=== PATIENT | female | born 1975 | race African-American/Black ===

== ENCOUNTER 2017-03-26 09:59 | Inpatient (IN) ==
[2017-03-26] MEDS ORDERED: SODIUM CHLORIDE 0.9% 1,000 ML IV STA ×2 (10:26→12:09)
[2017-03-26] MEDS ORDERED: ONDANSETRON 4 MG/2 ML VIAL IV STA (10:26)
--- NOTE | 2017-03-26 10:40 | Emergency Department Note ---
Luis London Brooke, am scribing for, and in the presence of, Junior Ross MD 10 :30. Vandana London Charles R, MD, personally performed the services described in this documentation, ascribed by Quiana Smith in my presence, and it is both accurate and complete . Arrival - Arrival Chief Complaint: Nausea/Vomiting/Diarrhea Stated Complaint: VOMITTING FOR 2 DAYS ED Nursing Triage Note: Pt c/o nausea, vomiting, and diarrhea x 2 days. Blood sugar in triage 363. Mode of Arrival: Ambulatory Limitations: No Limitations Source: Patient, RN Notes Reviewed Time Seen by Provider: 03/26/17 10:21 - History of Present Illness HPI Narrative: Patient is a 41 year old female who presents to the ED with c/o nausea, vomiting , and diarrhea. Patient says the symptoms started two days ago. She ate some food, two days ago, and "guesses it spoiled on my stomach." Patient says she was unable to keep anything down, until this morning. She had some water, earlier, and says she has not vomited it back up yet. The diarrhea stopped last night, also. Patient denies having any abdominal pain and says there is no possibility of . She says she has had some weight loss since getting sick. Patient has PMHx of IDDM and HTN. She is taking her insulin. Onset (ago): day(s) (2) Date of Last Menstrual Period: March 14 Allergies/Adverse Reactions: Allergies Allergy/AdvReac Type Severity Reaction Status Date / Time No Known Allergies Allergy Verified 06/20/16 08:11 Home Medications: Home Medications Medication Instructions Recorded Confirmed Type Insulin NPH Hum/Reg Insulin Hm 10 unit SUBCUT BEDTIME 03/26/17 03/26/17 History [NovoLIN 70/30] Insulin NPH Hum/Reg Insulin Hm 15 unit SUBCUT QAM 03/26/17 03/26/17 History [NovoLIN 70/30] amLODIPine [Norvasc] 5 mg PO DAILY 03/26/17 03/26/17 History hydroCHLOROthiazide 12.5 mg PO DAILY 03/26/17 03/26/17 History [Hydrochlorothiazide] Review of System - Review of System 12 point system: reviewed and no additional remarkable complaints except as stated - Review of System Constitutional: Absent: fever Respiratory: Absent: respiratory distress Gastrointestinal: Present: nausea, vomiting, diarrhea. Absent: abdominal pain Skin: Absent: rash Medical,Surgical,& Family Hx - Medical History Cardio: History of: Hypertension Endocrine: History of: Diabetes Mellitus (IDDM) - Social History Smoking Status: Never smoker Exam Vital Signs: Vital Signs Temperature 97.0 F L 03/26/17 10:18 Pulse Rate 99 H 03/26/17 13:40 Respiratory Rate 17 03/26/17 13:40 Blood Pressure 139/93 03/26/17 13:40 O2 Sat by Pulse Oximetry 100 03/26/17 13:40 - General General appearance: alert, in no apparent distress, other (emaciated and dehydrated) - Head Head exam: Present: atraumatic, normocephalic - Eye Eye exam: Present: PERRL, EOMI, other (sunken orbits) - ENT ENT exam: Present: mucous membranes dry - Neck Neck exam: Present: normal inspection - Chest Chest inspection: Present: normal inspection, symmetric chest wall rise - Respiratory Respiratory exam: Present: normal lung sounds bilaterally - Cardiovascular Cardiovascular exam: Present: regular rate, normal rhythm, normal heart sounds - Abdominal Exam Abdominal exam: Present: soft, normal bowel sounds. Absent: distention, tenderness - Extremities Exam Extremities exam: Present: normal inspection - Back Exam Back exam: Present: normal inspection - Neurological Exam Neurological exam: Present: alert, oriented X3 - Psychiatric Psychiatric exam: Present: normal affect, normal mood - Skin Skin exam: Present: warm, dry, intact, normal color, other (poor skin turgor) Course - Consultations Consultation #1: Hospitalist will admit patient Time: 12:11 Results - Labs CBC & BMP: 03/26/17 10:51 03/26/17 10:51 Lab Results: I have reviewed the patients labs Labs: Laboratory Tests 03/26/17 10:51 WBC 5.4 RBC 5.15 Hgb 16.3 H Hct 48.1 H MCV 93.4 MCH 32 MCHC 33.9 RDW 13.2 Plt Count 260 MPV 11.0 Neut % (Auto) 74.8 H Lymph % (Auto) 15.9 L [place] % (Auto) 8.7 Eos % (Auto) 0.0 Baso % (Auto) 0.2 Neut # (Auto) 4.0 Lymph # (Auto) 0.9 L [place] # (Auto) 0.5 Eos # (Auto) 0.0 Baso # (Auto) 0.0 Total Counted Pending Immature Gran % 0.4 Nucleated RBC % 0.0 Immature Gran # 0.02 Nucleated RBCs # 0.00 Laboratory Tests 03/26/17 03/26/17 03/26/17 10:51 10:51 10:51 Total Counted 100 Segmented Neutrophils 74 Band Neutrophils 2 Lymphocytes 15 L Monocytes 9 Platelet Estimate Normal Morphology Comment Sodium 133 L Potassium 4.6 Chloride 95 L Carbon Dioxide 11 L Anion Gap 31.6 H BUN 22 H Creatinine 1.40 H GFR Calculation 62 BUN/Creatinine Ratio 15.00 Glucose 618 H* Calculated Osmolality 297.4 Calcium 9.4 Magnesium Total Bilirubin 0.60 AST 8 ALT 17 Alkaline Phosphatase 60 Total Protein 7.5 Albumin 3.4 Globulin 4.1 H Albumin/Globulin Ratio 0.8 L Amylase 17 L Lipase 92.0 b-Hydroxybutyric mmol/L Urine Color Straw Urine Appearance Clear Urine pH 5.0 Ur Specific [place] 1.023 Urine Protein Negative Urine Glucose (UA) >=500 Urine Ketones 80 Urine Blood Negative Urine Nitrate Negative Urine Bilirubin Negative Urine Urobilinogen < 2.0 H Urine Leukocytes Negative Urine RBC <1 Urine WBC 2 Ur Squamous Epith Cells Occasional Hyaline Casts 1 Urine Mucus Occasional Ur Culture Indicated? Not indicated Urine Test Negative 03/26/17 03/26/17 10:51 10:51 Total Counted Segmented Neutrophils Band Neutrophils Lymphocytes Monocytes Platelet Estimate Morphology Comment Sodium Potassium Chloride Carbon Dioxide Anion Gap BUN Creatinine GFR Calculation BUN/Creatinine Ratio Glucose Calculated Osmolality Calcium Magnesium 2.3 Total Bilirubin AST ALT Alkaline Phosphatase Total Protein Albumin Globulin Albumin/Globulin Ratio Amylase Lipase b-Hydroxybutyric mmol/L 5.2 H Urine Color Urine Appearance Urine pH Ur Specific [place] Urine Protein Urine Glucose (UA) Urine Ketones Urine Blood Urine Nitrate Urine Bilirubin Urine Urobilinogen Urine Leukocytes Urine RBC Urine WBC Ur Squamous Epith Cells Hyaline Casts Urine Mucus Ur Culture Indicated? Urine Test - Diagnostic Findings Procedure: Abdominal x-ray: report reviewed by me (Mass effect within the pelvis , could be from a distended bladder or an enlarged uterus.) Critical Care Time Critical Care Time: Yes Total Critical Care Time: 60 Disposition Clinical Impression: Gastroenteritis, DKA (diabetic ketoacidoses), Dehydration, Intractable nausea and vomiting Case discussed with: patient Disposition: Still a Patient Condition: Guarded Time of Disposition: 12:10
[2017-03-26] MEDS ORDERED: ONDANSETRON 4 MG/2 ML VIAL ONE (10:49)
[2017-03-26 11:15] LABS: Basophils % 0.2 % (0.0-0.8); Hematocrit 48.1 VOL% (35.7-47.0); Hemoglobin 16.3 GM/DL (12.0-16.0); Immature Granulocytes % 0.4 %; Immature Granulocytes Absolute 0.02 #; Lymphocytes # 0.9 10*3/uL (1.4-4.0); Lymphocytes % 15.9 % (21.3-54.2); Mean Corpuscular HGB Conc 33.9 GM/DL (32-36); Mean Corpuscular Hemoglobin 32 PG (27-34); Mean Corpuscular Volume 93.4 FL (87-102); Monocytes # 0.5 10*3/uL (0.11-0.8); Monocytes % 8.7 % (1.7-12.7); Neutrophils % 74.8 % (38.7-73.9); Platelet Count 260 T/CUMM (130-400); Red Blood Count 5.15 MC/CUMM (3.8-5.5); Red Cell Distribution Width 13.2 % (9.3-17.3); White Blood Count 5.4 T/CUMM (4-12)
[2017-03-26 11:34] LABS: Apearance,Urine CLEAR (Clear); Bilirubin,Urine Negative (Negative); Blood, Urine Negative (Negative); Glucose,Urine (UA) >=500 mg/dL (Negative); Hyaline Casts,Urine 1 /LPF (0-3); Ketones,Urine 80 mg/dL (Negative); Mucus,Urine Occasional /LPF (Occasional); Nitrite,Urine Negative (Negative); Protein,Urine Negative; RBC,Urine <1 /HPF (0-4); Squamous Epithelial Cell,Urine Occasional /HPF (0-10); Urine Color Straw (Yellow); Urine Specific Gravity 1.023 (1.001-1.035); Urine Urobilinogen < 2.0 EU/DL (0.2-1.0); WBC,Urine 2 /HPF (0-6)
[2017-03-26 11:37] LABS: Band Neutrophils 2 % (0-10); Lymphocytes 15 % (20-55); Segmented Neutrophils 74 % (50-85); Total Cells Counted 100
[2017-03-26 11:38] LABS: Platelet Estimate Normal
[2017-03-26 11:41] LABS: Albumin 3.4 G/DL (3.4-5.0); Bilirubin,Total 0.6 MG/DL (0.2-1.0); Calcium 9.4 MG/DL (8.5-10.1); Osmolality,Calculated 297.4 MOS/KG (273-304); Potassium 4.6 MMOL/L (3.5-5.1); Total Protein 7.5 G/DL (6.4-8.3)
[2017-03-26] MEDS ORDERED: INSULIN REGULAR 100 UNIT/ML IV STA (12:08)
--- NOTE | 2017-03-26 12:21 | XRay Report ---
2 view abdomen. Indication: Nausea, vomiting, and diarrhea. No prior study. The heart is normal in size. The lung bases are clear. No free air is identified. No abnormal calcifications over the area of the renal outlines. Mass effect within the pelvis, this could be related to distended urinary bladder or enlarged uterus. Bowel gas pattern is normal. Calcification in the right pelvis, likely phlebolith. Degenerative changes of the hips and spinal column. Impression: Mass effect within the pelvis, could be from a distended bladder or an enlarged uterus. PROCEDURE INTERPRETED AT [facility] DEPARTMENT OF RADIOLOGY Final Report Signed by: Dr. Grecia Jimenez
[2017-03-26 12:30] LABS: ABG Base Excess -19.9 MMOL/L (-2.5-2.5); ABG HCO3 10.6 MMOL/L (20-26); ABG PH 7.223 (7.35-7.45)
[2017-03-26 12:33] LABS: ABG PCO2 16.6 MM HG (35-48)
[2017-03-26] MEDS ORDERED: INSULIN REGULAR 100 UNIT/ML ONE (12:41)
[2017-03-26] MEDS ORDERED: PROMETHAZINE 25 MG TABLET PO PRN (12:52)
[2017-03-26] MEDS ORDERED: MAGNESIUM SULF RIDER 2 GM in PREMIX 1 EACH IV PRN (12:52)
[2017-03-26] MEDS ORDERED: INSULIN REGULAR 100 UNIT/ML IV ONE (12:52)
[2017-03-26] MEDS ORDERED: MAGNESIUM SULF RIDER 4 GM in PREMIX 1 EACH IV PRN (12:52)
[2017-03-26] MEDS ORDERED: SODIUM PHOSPHATE INJ 19.8 MMOL in SODIUM CHLORIDE 0.9% 250 ML IV PRN (12:52)
[2017-03-26] MEDS ORDERED: SODIUM BICARB INJ 100 MEQ in STERILE WATER INJ 400 ML IV PRN (12:52)
[2017-03-26] MEDS ORDERED: DEXTROSE 50% 25 GM/50 ML VIAL IV PRN ×2 (12:52)
[2017-03-26] MEDS ORDERED: ONDANSETRON 4 MG/2 ML VIAL IV PRN (12:52)
--- NOTE | 2017-03-26 12:59 | Hospitalist History & Physical ---
Assessment and Plan - Time spent with patient Time spent with patient: Greater than 30 minutes (1) Diabetic ketoacidosis Status: Acute Assessment and plan: Admit to ICU. Start insulin drip. Bolus IV fluids. Monitor chemistries and anion gap. Current Visit: Yes Qualifiers: Diabetes mellitus type: type 1 Diabetes mellitus complication detail: without coma Qualified Code(s): E10.10 - Type 1 diabetes mellitus with ketoacidosis without coma (2) Gastroenteritis Status: Acute Current Visit: Yes (3) Intractable vomiting with nausea Status: Acute Assessment and plan: As needed Zofran, Phenergan, Compazine, Reglan. Current Visit: Yes Qualifiers: Vomiting type: unspecified Qualified Code(s): R11.2 - Nausea with vomiting , unspecified History of Present Illness Chief complaint: nausea/ vomiting/ diarrhea History of present illness: Ms. Nieves is a 41 year old female who presents to the ED with c/o nausea, vomiting, and diarrhea. Patient says the symptoms started two days ago. She ate some food, two days ago, and "guesses it spoiled on my stomach." Patient says she was unable to keep anything down, until this morning. She had some water, earlier, and says she has not vomited it back up yet. The diarrhea stopped last night, also. Patient denies having any abdominal pain and says there is no possibility of . She says she has had some weight loss since getting sick. Patient has PMHx of IDDM and HTN. She is taking her insulin. She reports her brother had similar symptoms of diarrhea. She looks and feels dehydrated. She is being admitted to the intensive care unit for treatment of diabetic ketoacidosis. The patient is a full code. Home medications were reviewed and reconciled. Home Medications Medication Instructions Recorded Confirmed Type Insulin NPH Hum/Reg Insulin Hm 10 unit SUBCUT BEDTIME 03/26/17 03/26/17 History [NovoLIN 70/30] Insulin NPH Hum/Reg Insulin Hm 15 unit SUBCUT QAM 03/26/17 03/26/17 History [NovoLIN 70/30] RX: hydroCHLOROthiazide 12.5 mg PO DAILY 03/26/17 03/26/17 History [Hydrochlorothiazide] amLODIPine [Norvasc] 5 mg PO DAILY 03/26/17 03/26/17 History Allergies Allergy/AdvReac Type Severity Reaction Status Date / Time No Known Allergies Allergy Verified 06/20/16 08:11 Medical,Surgical,& Family Hx - Medical History Cardio: History of: Hypertension Endocrine: History of: Diabetes Mellitus (IDDM) - Surgical History Reproductive Surgeries: Surgical HX of;: Gynecologic Surgery - Family History Family History: Reports;: Family Hypertension - Social History Smoking Status: Never smoker Frequency of Alcohol Use: None Type of Drug Use: None Functional capacity: independent ambulation 12 point system: reviewed and no additional remarkable complaints except as stated - Gastrointestinal Gastrointestinal: Present: as per HPI, diarrhea, nausea, vomiting Exam - Constitutional Vitals: Period Temp Pulse Resp BP Sys/Gomez Pulse Ox Last 24 Hr 97.0 F-97.0 F 130-130 20-20 117-117/92-92 100 Exam: Constitutional System: Mild distress. No tremulousness. Appears dehydrated Head: Normocephalic, atraumatic. Ears, Nose and Throat System: No pain or tenderness. No epistaxis or discharge Eyes System: Pupils equal, round, and reactive. Extraocular muscles intact. Neck: Supple, without adenopathy, No jugular venous distention. No thyromegaly, neck mass, or prior surgery apparent. Respiratory System: Chest clear to auscultation. Cardiovascular System: Heart with regular rate and rhythm. No murmur. GI System: Abdomen soft, nontender. Normo active bowel sounds present. Musculoskeletal System: limbs with no pedal edema. Full distal pulses. Neurological System: No discernable sensory deficit. No aphasia Psychiatric System: Conversation is rational Results - Labs CBC & BMP: 03/26/17 10:51 03/26/17 10:51 Lab Results: I have reviewed the past 24 hour labs - Diagnostic Findings Procedure: KUB x-ray: image reviewed by me, report reviewed by me
[2017-03-26] MEDS ORDERED: PROCHLORPERAZINE 10 MG TABLET PO PRN (13:00)
[2017-03-26] MEDS ORDERED: METOCLOPRAMIDE 10 MG/2 ML VIAL IV PRN (13:00)
[2017-03-26] MEDS ORDERED: INSULIN REGULAR DRIP 100 ML IV SCH (13:00)
[2017-03-26] MEDS: SODIUM CHLORIDE 0.9% 1,000 ML IV ONE ×2 (14:24→14:28)
[2017-03-26] MEDS: SODIUM CHLORIDE 0.9% 1,000 ML IV SCH ×2 (14:29→16:30)
[2017-03-26 15:07] LABS: Calcium 8.7 MG/DL (8.5-10.1); Osmolality,Calculated 302.3 MOS/KG (273-304); Potassium 4.7 MMOL/L (3.5-5.1)
[2017-03-26 15:08] LABS: Magnesium 2.2 MG/DL (1.8-2.4); Phosphorous 2.5 MG/DL (2.5-4.9)
[2017-03-26] MEDS: ENOXAPARIN 40 MG/0.4 ML SYRINGE SUBCUT SCH (16:07)
[2017-03-26 17:43] LABS: Osmolality,Calculated 293.3 MOS/KG (273-304); Potassium 3.7 MMOL/L (3.5-5.1)
[2017-03-26] MEDS: POTASSIUM CHLORIDE RIDER 10 MEQ in PREMIX 1 EACH IV PRN ×2 (17:53→18:57)
[2017-03-26] MEDS ORDERED: SODIUM CHLORIDE 0.9% 1,000 ML IV SCH (17:53)
[2017-03-26 18:11] LABS: ABG Base Excess -13.7 MMOL/L (-2.5-2.5); ABG HCO3 14.1 MMOL/L (20-26); ABG Oxygen Saturation 97.6 % (95-100); ABG PCO2 21.7 MM HG (35-48); ABG PH 7.313 (7.35-7.45); ABG TCO2 9.7 MMOL/L (23-27); Pt O2 Delivery Device Room Air
[2017-03-26] MEDS: DEXT 5% NACL 0.45% KCL 20 MEQ 20 MEQ/1,000 ML BAG IV SCH (20:17)
[2017-03-26] MEDS: ACETAMINOPHEN 325 MG TABLET PO PRN (20:45)
[2017-03-26 20:50] LABS: ABG Base Excess -12.6 MMOL/L (-2.5-2.5); ABG HCO3 14.9 MMOL/L (20-26); ABG Oxygen Saturation 98.6 % (95-100); ABG PCO2 22.3 MM HG (35-48); ABG PH 7.332 (7.35-7.45); ABG TCO2 10.3 MMOL/L (23-27)
[2017-03-26 21:32] LABS: Calcium 7.7 MG/DL (8.5-10.1); Osmolality,Calculated 285.3 MOS/KG (273-304)
[2017-03-26 23:02] LABS: ABG Base Excess -8.2 MMOL/L (-2.5-2.5); ABG HCO3 17.9 MMOL/L (20-26); ABG Oxygen Saturation 98.9 % (95-100); ABG PH 7.362 (7.35-7.45)
[2017-03-27] MEDS: DEXT 5% NACL 0.45% KCL 20 MEQ 20 MEQ/1,000 ML BAG IV SCH ×2 (00:27→05:47)
[2017-03-27 02:07] LABS: Calcium 7.8 MG/DL (8.5-10.1); Osmolality,Calculated 281.3 MOS/KG (273-304); Potassium 3.6 MMOL/L (3.5-5.1)
[2017-03-27] MEDS: POTASSIUM CHLORIDE RIDER 10 MEQ in PREMIX 1 EACH IV PRN ×2 (02:21→03:31)
[2017-03-27] MEDS: ACETAMINOPHEN 325 MG TABLET PO PRN (02:31)
[2017-03-27 05:03] LABS: Eosinophils % 0.2 % (0.00-10.9); Hematocrit 37.5 VOL% (35.7-47.0); Immature Granulocytes % 0.3 %; Immature Granulocytes Absolute 0.02 #; Lymphocytes # 1.8 10*3/uL (1.4-4.0); Lymphocytes % 30.8 % (21.3-54.2); Mean Corpuscular HGB Conc 34.7 GM/DL (32-36); Mean Corpuscular Hemoglobin 32 PG (27-34); Mean Corpuscular Volume 91.5 FL (87-102); Mean Platelet Volume 10.2 FL (9.6-12.0); Monocytes # 0.8 10*3/uL (0.11-0.8); Neutrophils # 3.3 10*3/uL (1.4-7.4); Neutrophils % 55.7 % (38.7-73.9); Platelet Count 204 T/CUMM (130-400); Red Cell Distribution Width 13.2 % (9.3-17.3); White Blood Count 5.9 T/CUMM (4-12)
[2017-03-27] MEDS: SODIUM CHLORIDE 0.45% 1,000 ML IV SCH ×2 (05:15→13:15)
[2017-03-27 05:23] LABS: Hypochromasia 1+; Platelet Estimate Normal
[2017-03-27 05:31] LABS: Calcium 7.6 MG/DL (8.5-10.1); Magnesium 1.9 MG/DL (1.8-2.4); Osmolality,Calculated 281.5 MOS/KG (273-304); Phosphorous 1.4 MG/DL (2.5-4.9); Potassium 4.2 MMOL/L (3.5-5.1)
[2017-03-27] MEDS: PANTOPRAZOLE 40 MG TABLET PO SCH (08:23)
[2017-03-27] MEDS ORDERED: INSULIN ASPART PROTAMINE/ASPART 70/30 100 UNIT/ML SUBCUT SCH ×2 (08:30→21:00)
--- NOTE | 2017-03-27 08:46 | Hospitalist Progress Note ---
Assessment and Plan (1) Diabetic ketoacidosis Status: Acute Assessment and plan: Start diabetic diet. Accu-Cheks q. before meals and at bedtime. Start subcu insulin. Discontinue IV insulin drip. Continue half-normal saline at 125.. Current Visit: Yes Qualifiers: Diabetes mellitus type: type 1 Diabetes mellitus complication detail: without coma Qualified Code(s): E10.10 - Type 1 diabetes mellitus with ketoacidosis without coma (2) Gastroenteritis Status: Resolved Current Visit: Yes (3) Intractable vomiting with nausea Status: Resolved Assessment and plan: Resolved Current Visit: Yes Qualifiers: Vomiting type: unspecified Qualified Code(s): R11.2 - Nausea with vomiting , unspecified (4) IDDM (insulin dependent diabetes mellitus) Status: Chronic Assessment and plan: Resume home insulin dose subcu insulin twice daily. Start diabetic diet. Cover with sliding scale. Diabetic education consult. Current Visit: Yes Hospitalist: Subjective Interval history: Patient seen and examined. No acute events overnight. Case discussed with nursing staff. Labs reviewed. No acute events overnight. Anion gap closing. Patient denies any further nausea vomiting or diarrhea. She is hungry. Exam - Constitutional Vitals: Period Temp Pulse Resp BP Sys/Gomez Pulse Ox Last 24 Hr 97.0 F-99.3 F 80-130 11-25 110-147/62-109 98-100 Exam: Constitutional System: Mild distress. No tremulousness. Head: Normocephalic, atraumatic. Ears, Nose and Throat System: No pain or tenderness. No epistaxis or discharge Eyes System: Pupils equal, round, and reactive. Extraocular muscles intact. Neck: Supple, without adenopathy, No jugular venous distention. Respiratory System: Chest clear to auscultation. Cardiovascular System: Heart with regular rate and rhythm. No murmur. GI System: Abdomen soft, nontender. Normo active bowel sounds present. Musculoskeletal System: limbs with no pedal edema. Full distal pulses. Neurological System: No discernable sensory deficit. No aphasia Psychiatric System: Conversation is rational Results - Labs CBC & BMP: 03/27/17 04:56 03/27/17 04:50 Lab Results: I have reviewed the past 24 hour labs
[2017-03-27] MEDS: INSULIN NPH/REGULAR 70/30 100 UNIT/ML SUBCUT SCH (09:04)
[2017-03-27 09:22] LABS: Calcium 7.9 MG/DL (8.5-10.1); Osmolality,Calculated 275.5 MOS/KG (273-304); Potassium 3.9 MMOL/L (3.5-5.1)
[2017-03-27] MEDS: amLODIPine 5 MG TABLET PO SCH (09:28)
[2017-03-27 10:21] LABS: Magnesium 1.8 MG/DL (1.8-2.4); Osmolality,Calculated 280.5 MOS/KG (273-304); Potassium 3.6 MMOL/L (3.5-5.1)
[2017-03-27] MEDS: INSULIN LISPRO 100 UNIT/ML SUBCUT SCH ×3 (12:02→20:13)
[2017-03-27] MEDS ORDERED: POTASSIUM CHLORIDE 20 MEQ TABLET PO ONE (14:31)
[2017-03-27] MEDS: ENOXAPARIN 40 MG/0.4 ML SYRINGE SUBCUT SCH (15:04)
[2017-03-27] MEDS ORDERED: INSULIN NPH/REGULAR 70/30 100 UNIT/ML SUBCUT SCH (21:00)
[2017-03-28] MEDS: SODIUM CHLORIDE 0.45% 1,000 ML IV SCH ×2 (01:20→09:36)
[2017-03-28 06:47] LABS: Calcium 7.5 MG/DL (8.5-10.1); Osmolality,Calculated 290.1 MOS/KG (273-304); Potassium 3.7 MMOL/L (3.5-5.1)
[2017-03-28 07:37] VITALS: BP 143/90
[2017-03-28] MEDS: amLODIPine 5 MG TABLET PO SCH (08:14)
[2017-03-28] MEDS: INSULIN NPH/REGULAR 70/30 100 UNIT/ML SUBCUT SCH (08:14)
[2017-03-28] MEDS: INSULIN LISPRO 100 UNIT/ML SUBCUT SCH (08:14)
[2017-03-28] MEDS: PANTOPRAZOLE 40 MG TABLET PO SCH (08:14)
--- NOTE | 2017-03-28 09:39 | Discharge Summary ---
Hospital Course - Hospital Course Hospital Course: Ms. Nieves is a 41 year old female who presented to the ED with c/o nausea, vomiting, and diarrhea. Patient said the symptoms started two days prior. She ate some food and "guesses it spoiled on my stomach." Patient said she was unable to keep anything down, until this morning. She had some water, earlier, and said she has not vomited it back up yet. The diarrhea stopped last night, also. She reported her brother had similar symptoms of diarrhea. She was admitted to the intensive care unit for treatment of diabetic ketoacidosis. She was started on IV fluids and insulin infusion. Her symptoms completely resolved. Her anion gap closed and glucoses improved. She has now reached maximal benefit of inpatient stay and will be discharged home. - Time spent with patient Time with patient DS: Less than 30 minutes (25) Diagnosis - Discharge Diagnosis (1) Gastroenteritis Status: Resolved (2) Diabetic ketoacidosis Status: Resolved (3) Intractable vomiting with nausea Status: Resolved (4) IDDM (insulin dependent diabetes mellitus) Status: Chronic Specialty Discharge - Follow Up or Referrals Discharge Plan - Discharge Data Disposition: Disch To Home/Self Care Condition at Discharge: Stable Discharge Diet: diabetic diet Activity: resume usual activities as tolerated Hygiene: no restrictions Weight Bearing at Discharge: weight bear as tolerated Driving: no restrictions Contact your physician if you experience:: Nausea/Vomiting - Discharge Medications New Lancets 1 each MC DAILY #100 each Continue hydroCHLOROthiazide [Hydrochlorothiazide] 12.5 mg PO DAILY Insulin NPH Hum/Reg Insulin Hm [NovoLIN 70/30] 10 unit SUBCUT BEDTIME #3 vial Insulin NPH Hum/Reg Insulin Hm [NovoLIN 70/30] 15 unit SUBCUT QAM #5 vial amLODIPine [Norvasc] 5 mg PO DAILY - Follow Up or Referral - Forms/Instructions Instructions: How to Check Your Blood Sugar (DC), Diabetic Ketoacidosis (DC), Diabetes Mellitus Type 2 in Adults (DC), Meal Planning with the Plate Model (DC) Exam - Constitutional Vitals: Period Temp Pulse Resp BP Sys/Gomez Pulse Ox Last 24 Hr 97.7 F-98.7 F 81-93 10-20 124-147/75-98 95-100 General appearance: normal weight - Head Head exam: Present: normocephalic, atraumatic - Eye Eye exam: Present: EOMI Pupils: Present: BERNABE - ENT ENT exam: Present: normal exam - Neck Neck exam: Present: normal inspection - Respiratory Respiratory exam: Present: clear to auscultation bilaterally. Absent: rhonchi, wheezes - Cardiovascular Cardiovascular exam: Present: regular rate and rhythm - GI/Abdominal GI/Abdominal exam: Present: normal bowel sounds, soft. Absent: tenderness, rebound - Extremities Exam Extremities exam: Present: normal inspection - Back Exam Back exam: Present: normal inspection - Neurological Exam Neurological exam: Present: alert, oriented X3 - Psychiatric Psychiatric exam: Present: normal affect, normal mood - Skin Skin exam: Present: warm, intact Discharge Results Procedures and tests throughout hospitalization: Pending Orders 03/26/17 11:02 Blood Culture Stat Labs on day of discharge: Labs from last 24 hours 03/28/17 03/28/17 03/27/17 05:24 05:24 19:06 Sodium 142 Potassium 3.7 Chloride 108 H Carbon Dioxide 23 Anion Gap 14.7 BUN 7 Creatinine 0.70 GFR Calculation 138 BUN/Creatinine Ratio 10.00 Glucose 282 H POC Glucose 268 H Calculated Osmolality 290.1 Calcium 7.5 L Magnesium 2.0 03/27/17 03/27/17 03/27/17 16:05 11:51 09:54 Sodium 139 Potassium 3.6 Chloride 110 H Carbon Dioxide 17 L Anion Gap 15.6 H BUN 11 Creatinine 0.70 GFR Calculation 138 BUN/Creatinine Ratio 15.00 Glucose 194 H POC Glucose 298 H 190 H Calculated Osmolality 280.5 Calcium 8.0 L Magnesium 1.8 03/27/17 07:03 Sodium Potassium Chloride Carbon Dioxide Anion Gap BUN Creatinine GFR Calculation BUN/Creatinine Ratio Glucose POC Glucose 162 H Calculated Osmolality Calcium Magnesium Preliminary micro results at discharge 03/26/17 11:02 Blood Culture - Preliminary Blood No growth at 1 day 03/26/17 11:02 Blood Culture - Preliminary Blood No growth at 1 day DS: Provider Date of admission: 03/26/17 12:44 Primary care physician: . No PCP Attending physician on admission: Azul Morales MD Consults: 03/26/17 12:54 Consult to [facility], Educator [CONS] Routine Reason for Supervisor Kennel: Diabetes Education 03/26/17 15:04 Consult to Pastoral Services [CONS] Routine Comment: Pastoral Screen: Request Manager Quality Visit Pastoral Screen Source of Request: Patient Discharging clinician: Macarena Collazo MD
== END 2017-03-28 10:48 | disposition home or self-care (01) | DRG 420 ==
LOC: N.ED 09:59 → SUATTDRO 12:44 → N.EDINP 13:39 → N.ICU 14:14 → N.5E 03-27 15:33
PROVIDERS: ADMIT Family Medicine; ATTEND Internal Medicine

== ENCOUNTER 2018-10-01 10:20 | Inpatient (IN) ==
[2018-10-01] MEDS ORDERED: PIPERACILLIN/TAZOBACTAM 3,375 MG in SODIUM CHLORIDE 0.9% 100 ML IV STA (11:02)
[2018-10-01] MEDS ORDERED: SODIUM CHLORIDE 0.9% 2,750 ML IV ONE (11:02)
[2018-10-01 11:16] LABS: Apearance,Urine CLEAR (Clear); Bilirubin,Urine Negative (Negative); Blood, Urine Moderate mg/dL (Negative); Glucose,Urine (UA) >=500 mg/dL (Negative); Ketones,Urine 20 mg/dL (Negative); Mucus,Urine Occasional /LPF (Occasional); Nitrite,Urine Negative (Negative); Protein,Urine Negative; RBC,Urine 21 /HPF (0-4); Squamous Epithelial Cell,Urine Occasional /HPF (0-10); Urine Color Colorless (Yellow); Urine Specific Gravity 1.023 (1.001-1.035); Urine Urobilinogen < 2.0 EU/DL (0.2-1.0); WBC,Urine 1 /HPF (0-6)
[2018-10-01] MEDS ORDERED: cloNIDine 0.1 MG TABLET PO STA (11:25)
[2018-10-01 11:32] LABS: Basophils % 0.5 % (0.0-0.8); Eosinophils # 0.1 10*3/uL (0.0-0.87); Eosinophils % 1.1 % (0.00-10.9); Hematocrit 34.8 VOL% (35.7-47.0); Hemoglobin 11.1 GM/DL (12.0-16.0); Immature Granulocytes % 0.3 %; Immature Granulocytes Absolute 0.02 #; Lymphocytes # 1.5 10*3/uL (1.4-4.0); Lymphocytes % 23.4 % (21.3-54.2); Mean Corpuscular HGB Conc 31.9 GM/DL (32-36); Mean Corpuscular Hemoglobin 27 PG (27-34); Mean Corpuscular Volume 85.3 FL (87-102); Mean Platelet Volume 9.9 FL (9.6-12.0); Monocytes # 0.4 10*3/uL (0.11-0.8); Monocytes % 6.7 % (1.7-12.7); Neutrophils # 4.3 10*3/uL (1.4-7.4); Platelet Count 397 T/CUMM (130-400); Red Blood Count 4.08 MC/CUMM (3.8-5.5); Red Cell Distribution Width 12.8 % (9.3-17.3); White Blood Count 6.3 T/CUMM (4-12)
[2018-10-01 11:53] LABS: Alanine Aminotransferase 9 U/L (13-56); Albumin 2.4 G/DL (3.4-5.0); Alkaline Phosphatase 108 U/L (45-117); Aspartate Amino Transferase 6 U/L (0-37); Bilirubin,Total < 0.39 MG/DL (0.2-1.0); Blood Urea Nitrogen 13 MG/DL (7-18); Calcium 8.9 MG/DL (8.5-10.1); Osmolality,Calculated 279.4 MOS/KG (273-304); Potassium 3.6 MMOL/L (3.5-5.1); Sodium 126 MMOL/L (136-145); Total Protein 9.5 G/DL (6.4-8.3)
[2018-10-01 11:55] LABS: Glucose 580 MG/DL (74-106)
[2018-10-01] MEDS ORDERED: INSULIN REGULAR 100 UNIT/ML IV STA (12:01)
[2018-10-01] MEDS ORDERED: INSULIN REGULAR 100 UNIT/ML ONE (12:16)
[2018-10-01] MEDS ORDERED: hydrALAZINE 20 MG/1 ML VIAL IV STA (12:52)
[2018-10-01] MEDS ORDERED: hydrALAZINE 20 MG/1 ML VIAL ONE (13:10)
[2018-10-01] MEDS ORDERED: VANCOMYCIN INJ 1,250 MG in SODIUM CHLORIDE 0.9% 250 ML IV ONE (13:29)
[2018-10-01 13:34] LABS: Band Neutrophils 2 % (0-10); Eosinophils 1 % (0-10); Lymphocytes 18 % (20-55); Segmented Neutrophils 67 % (50-85)
[2018-10-01 13:35] LABS: Platelet Estimate Adequate; Total Cells Counted 100
[2018-10-01] MEDS ORDERED: LIDOCAINE 1% 20 ML VIAL ONE (14:47)
[2018-10-01] MEDS ORDERED: MIDAZOLAM 2 MG/2 ML VIAL ONE ×2 (15:36)
[2018-10-01] MEDS ORDERED: BISACODYL 5 MG TABLET PO PRN (16:27)
[2018-10-01] MEDS ORDERED: ONDANSETRON 4 MG/2 ML VIAL IV PRN (16:27)
[2018-10-01] MEDS ORDERED: LACTULOSE 20 GM/30 ML UDCUP PO PRN (16:27)
[2018-10-01] MEDS ORDERED: GLUCAGON 1 MG VIAL IM PRN (16:27)
[2018-10-01] MEDS ORDERED: DEXTROSE 50% 25 GM/50 ML SYRINGE IV PRN (16:27)
[2018-10-01] MEDS: SODIUM CHLORIDE 0.9% 1,000 ML IV SCH (18:29)
[2018-10-01] MEDS: INSULIN REGULAR 100 UNIT/ML SUBCUT SCH ×2 (18:30→21:40)
[2018-10-01] MEDS: MORPHINE 4 MG/1 ML VIAL IV PRN (18:32)
[2018-10-01] MEDS: PIPERACILLIN/TAZOBACTAM 3,375 MG in SODIUM CHLORIDE 0.9% 100 ML IV SCH (21:40)
[2018-10-02] MEDS: VANCOMYCIN INJ 1,500 MG in SODIUM CHLORIDE 0.9% 500 ML IV SCH ×2 (02:16→15:51)
[2018-10-02] MEDS: PIPERACILLIN/TAZOBACTAM 3,375 MG in SODIUM CHLORIDE 0.9% 100 ML IV SCH ×3 (04:40→20:34)
[2018-10-02] MEDS: MORPHINE 4 MG/1 ML VIAL IV PRN ×2 (05:08→20:34)
[2018-10-02 05:47] LABS: Basophils % 0.4 % (0.0-0.8); Eosinophils # 0.2 10*3/uL (0.0-0.87); Eosinophils % 3.5 % (0.00-10.9); Hematocrit 28.7 VOL% (35.7-47.0); Hemoglobin 9.1 GM/DL (12.0-16.0); Immature Granulocytes % 0.4 %; Immature Granulocytes Absolute 0.02 #; Lymphocytes % 39.2 % (21.3-54.2); Mean Corpuscular HGB Conc 31.7 GM/DL (32-36); Mean Corpuscular Hemoglobin 28 PG (27-34); Mean Platelet Volume 10.1 FL (9.6-12.0); Monocytes # 0.6 10*3/uL (0.11-0.8); Monocytes % 10.8 % (1.7-12.7); Neutrophils # 2.3 10*3/uL (1.4-7.4); Neutrophils % 45.7 % (38.7-73.9); Platelet Count 355 T/CUMM (130-400); White Blood Count 5.1 T/CUMM (4-12)
[2018-10-02 06:03] LABS: Calcium 7.7 MG/DL (8.5-10.1); Osmolality,Calculated 280.8 MOS/KG (273-304); Potassium 3.1 MMOL/L (3.5-5.1)
[2018-10-02] MEDS: POTASSIUM CHLORIDE 20 MEQ TABLET PO SCH ×2 (06:34→09:56)
[2018-10-02 06:51] LABS: Anisocytosis Slight; Band Neutrophils 3 % (0-10); Eosinophils 2 % (0-10); Lymphocytes 40 % (20-55); Macrocytosis Slight; Platelet Estimate Normal; Segmented Neutrophils 46 % (50-85); Total Cells Counted 100
[2018-10-02 06:55] LABS: % Iron Saturation 9.8 % (18-50); Ferritin 25.2 ng/ml (8-252)
[2018-10-02 08:06] LABS: Folate 6.5 NG/ML (5.4-24.0)
[2018-10-02] MEDS: amLODIPine 10 MG TABLET PO SCH (08:17)
[2018-10-02] MEDS: ENOXAPARIN 40 MG/0.4 ML SYRINGE SUBCUT SCH (08:18)
[2018-10-02] MEDS: INSULIN REGULAR 100 UNIT/ML SUBCUT SCH ×7 (08:18→20:35)
[2018-10-02] MEDS: INSULIN GLARGINE 100 UNIT/ML SUBCUT SCH (08:18)
[2018-10-02] MEDS: PANTOPRAZOLE 40 MG TABLET PO SCH (08:18)
[2018-10-02] MEDS: SODIUM CHLORIDE 0.9% 1,000 ML IV SCH (08:26)
[2018-10-02] MEDS: CHLORHEXIDINE 4% SOLN 118 ML BOTTLE TOP SCH (11:56)
[2018-10-02] MEDS: SODIUM HYPOCHLORITE 0.25% IRRIG 473 ML BOTTLE TOP SCH (11:56)
[2018-10-02] MEDS ORDERED: POTASSIUM CHLORIDE 20 MEQ TABLET PO PRN (13:21)
[2018-10-02] MEDS: ZALEPLON 5 MG CAPSULE PO PRN (20:36)
[2018-10-03] MEDS: SODIUM CHLORIDE 0.9% 1,000 ML IV SCH ×3 (00:34→15:06)
[2018-10-03] MEDS: VANCOMYCIN INJ 1,500 MG in SODIUM CHLORIDE 0.9% 500 ML IV SCH ×2 (02:04→17:38)
[2018-10-03] MEDS: PIPERACILLIN/TAZOBACTAM 3,375 MG in SODIUM CHLORIDE 0.9% 100 ML IV SCH ×3 (04:39→21:09)
[2018-10-03 05:16] LABS: Basophils % 0.7 % (0.0-0.8); Eosinophils # 0.2 10*3/uL (0.0-0.87); Eosinophils % 4.4 % (0.00-10.9); Hematocrit 30.7 VOL% (35.7-47.0); Hemoglobin 9.4 GM/DL (12.0-16.0); Immature Granulocytes % 0.2 %; Immature Granulocytes Absolute 0.01 #; Lymphocytes # 1.9 10*3/uL (1.4-4.0); Lymphocytes % 43.6 % (21.3-54.2); Mean Corpuscular HGB Conc 30.6 GM/DL (32-36); Mean Corpuscular Hemoglobin 27 PG (27-34); Mean Corpuscular Volume 88.5 FL (87-102); Mean Platelet Volume 9.7 FL (9.6-12.0); Monocytes # 0.4 10*3/uL (0.11-0.8); Monocytes % 9.8 % (1.7-12.7); Neutrophils # 1.8 10*3/uL (1.4-7.4); Neutrophils % 41.3 % (38.7-73.9); Platelet Count 393 T/CUMM (130-400); Red Blood Count 3.47 MC/CUMM (3.8-5.5); Red Cell Distribution Width 13.2 % (9.3-17.3); White Blood Count 4.3 T/CUMM (4-12)
[2018-10-03 05:40] LABS: Calcium 7.6 MG/DL (8.5-10.1); Osmolality,Calculated 282.8 MOS/KG (273-304); Potassium 3.9 MMOL/L (3.5-5.1)
[2018-10-03] MEDS: MORPHINE 4 MG/1 ML VIAL IV PRN ×3 (06:43→20:30)
[2018-10-03] MEDS: SODIUM HYPOCHLORITE 0.25% IRRIG 473 ML BOTTLE TOP SCH (08:07)
[2018-10-03] MEDS ORDERED: DEXTROSE 50% 25 GM/50 ML VIAL IV PRN (08:20)
[2018-10-03] MEDS ORDERED: GLUCAGON 1 MG VIAL IM PRN (08:20)
[2018-10-03] MEDS: INSULIN REGULAR 100 UNIT/ML SUBCUT SCH ×7 (08:25→20:29)
[2018-10-03] MEDS: INSULIN GLARGINE 100 UNIT/ML SUBCUT SCH ×3 (08:25→20:29)
[2018-10-03] MEDS: CHLORHEXIDINE 4% SOLN 118 ML BOTTLE TOP SCH (08:37)
[2018-10-03] MEDS: ENOXAPARIN 40 MG/0.4 ML SYRINGE SUBCUT SCH (09:33)
[2018-10-03] MEDS: PANTOPRAZOLE 40 MG TABLET PO SCH (09:33)
[2018-10-03] MEDS: amLODIPine 10 MG TABLET PO SCH (09:34)
[2018-10-03] MEDS: FOLIC ACID 1 MG TABLET PO SCH ×2 (09:34→20:28)
[2018-10-03] MEDS: ZALEPLON 5 MG CAPSULE PO PRN (20:28)
[2018-10-03] MEDS ORDERED: FLUCONAZOLE 150 MG TABLET PO ONE (21:00)
[2018-10-04] MEDS: VANCOMYCIN INJ 1,500 MG in SODIUM CHLORIDE 0.9% 500 ML IV SCH ×2 (01:15→08:41)
[2018-10-04 04:46] LABS: Basophils % 0.5 % (0.0-0.8); Eosinophils # 0.2 10*3/uL (0.0-0.87); Eosinophils % 4.3 % (0.00-10.9); Hematocrit 29.2 VOL% (35.7-47.0); Hemoglobin 8.9 GM/DL (12.0-16.0); Immature Granulocytes % 0.3 %; Immature Granulocytes Absolute 0.01 #; Lymphocytes # 2.1 10*3/uL (1.4-4.0); Lymphocytes % 51.6 % (21.3-54.2); Mean Corpuscular HGB Conc 30.5 GM/DL (32-36); Mean Corpuscular Hemoglobin 27 PG (27-34); Mean Corpuscular Volume 89.3 FL (87-102); Mean Platelet Volume 9.6 FL (9.6-12.0); Monocytes # 0.4 10*3/uL (0.11-0.8); Monocytes % 9.8 % (1.7-12.7); Neutrophils # 1.3 10*3/uL (1.4-7.4); Neutrophils % 33.5 % (38.7-73.9); Platelet Count 386 T/CUMM (130-400); Red Blood Count 3.27 MC/CUMM (3.8-5.5); Red Cell Distribution Width 13.1 % (9.3-17.3)
[2018-10-04] MEDS: PIPERACILLIN/TAZOBACTAM 3,375 MG in SODIUM CHLORIDE 0.9% 100 ML IV SCH ×2 (04:52→11:08)
[2018-10-04 05:11] LABS: Calcium 7.9 MG/DL (8.5-10.1); Osmolality,Calculated 281.5 MOS/KG (273-304)
[2018-10-04 05:13] LABS: Osmolality,Calculated 278.7 MOS/KG (273-304); Potassium 3.8 MMOL/L (3.5-5.1)
[2018-10-04 05:26] LABS: Eosinophils 4 % (0-10); Hypochromasia 1+; Lymphocytes 56 % (20-55); Platelet Estimate Adequate; Segmented Neutrophils 34 % (50-85); Total Cells Counted 100
[2018-10-04] MEDS: INSULIN REGULAR 100 UNIT/ML SUBCUT SCH ×2 (07:48)
[2018-10-04] MEDS: FOLIC ACID 1 MG TABLET PO SCH (08:43)
[2018-10-04] MEDS: PANTOPRAZOLE 40 MG TABLET PO SCH (08:43)
[2018-10-04] MEDS: amLODIPine 10 MG TABLET PO SCH (08:43)
[2018-10-04] MEDS: INSULIN GLARGINE 100 UNIT/ML SUBCUT SCH (08:45)
[2018-10-04] MEDS: ENOXAPARIN 40 MG/0.4 ML SYRINGE SUBCUT SCH (08:45)
[2018-10-04] MEDS ORDERED: INSULIN GLARGINE 100 UNIT/ML SUBCUT SCH (10:02)
[2018-10-04] MEDS: CHLORHEXIDINE 4% SOLN 118 ML BOTTLE TOP SCH (10:08)
[2018-10-04] MEDS: SODIUM HYPOCHLORITE 0.25% IRRIG 473 ML BOTTLE TOP SCH (10:08)
[2018-10-04] MEDS ORDERED: INSULIN LISPRO 100 UNIT/ML SUBCUT SCH ×3 (11:30→17:00)
[2018-10-04] MEDS ORDERED: INSULIN GLARGINE 100 UNIT/ML SUBCUT ONE (11:30)
[2018-10-04] MEDS ORDERED: hydrALAZINE 20 MG/1 ML VIAL IV ONE (13:18)
[2018-10-04 14:43] VITALS: BP 148/78
[2018-10-05] MEDS ORDERED: INSULIN GLARGINE 100 UNIT/ML SUBCUT SCH (09:00)
== END 2018-10-04 15:45 | disposition home health service (06) | DRG 240 ==
LOC: N.ED 10:20 → SUATTDRO 12:52 → N.EDINP 12:52 → N.3E 14:40
PROVIDERS: ADMIT Internal Medicine; ATTEND Internal Medicine

== ENCOUNTER 2019-07-29 07:47 | Inpatient (IN) ==
[2019-07-29 08:45] LABS: Basophils % 0.4 % (0.0-0.8); Eosinophils # 0.1 10*3/uL (0.0-0.87); Eosinophils % 0.9 % (0.00-10.9); Hematocrit 22.1 VOL% (35.7-47.0); Immature Granulocytes % 0.3 %; Immature Granulocytes Absolute 0.02 #; Lymphocytes # 1.4 10*3/uL (1.4-4.0); Lymphocytes % 18.3 % (21.3-54.2); Mean Corpuscular HGB Conc 28.5 GM/DL (32-36); Mean Corpuscular Volume 70.4 FL (87-102); Mean Platelet Volume 9.9 FL (9.6-12.0); Monocytes % 7.1 % (1.7-12.7); Platelet Count 346 T/CUMM (130-400); Red Blood Count 3.14 MC/CUMM (3.8-5.5); White Blood Count 7.4 T/CUMM (4-12)
[2019-07-29 08:49] LABS: Hemoglobin 6.3 GM/DL (12.0-16.0)
[2019-07-29 08:55] LABS: Partial Thromboplastin Time 27.2 SECS (20.8-36.0)
[2019-07-29 09:06] LABS: Albumin 2.3 G/DL (3.4-5.0); Bilirubin,Total 0.4 MG/DL (0.2-1.0); Calcium 8.6 MG/DL (8.5-10.1); Osmolality,Calculated 276.8 MOS/KG (273-304); Total Protein 7.9 G/DL (6.4-8.3)
[2019-07-29 09:09] LABS: Apearance,Urine Slightly Hazy (Clear); Bacteria,Urine Occasional /HPF (Few); Bilirubin,Urine Negative (Negative); Blood, Urine Moderate mg/dL (Negative); Glucose,Urine (UA) Negative (Negative); Ketones,Urine Negative (Negative); Nitrite,Urine Negative (Negative); Protein,Urine 30 MG/DL; RBC,Urine 10 /HPF (0-4); Squamous Epithelial Cell,Urine Occasional /HPF (0-10); Urine Color Yellow (Yellow); Urine Specific Gravity 1.016 (1.001-1.035); Urine Urobilinogen < 2.0 EU/DL (0.2-1.0); WBC,Urine 2 /HPF (0-6)
[2019-07-29 09:15] LABS: Barbiturates Screen,Urine Negative (Negative); Benzodiazepines Screen,Urine Negative (Negative); Cannabinoid Screen,Urine Negative (Negative); Opiate Screen,Urine Negative (Negative); Phencyclidine Screen,Urine Negative (Negative)
[2019-07-29] MEDS ORDERED: FUROSEMIDE 40 MG/4 ML VIAL IV STA (09:29)
[2019-07-29] MEDS ORDERED: hydrALAZINE 20 MG/1 ML VIAL IV STA (09:31)
[2019-07-29] MEDS ORDERED: ACETAMINOPHEN 325 MG TABLET PO PRN (09:43)
[2019-07-29] MEDS ORDERED: ONDANSETRON 4 MG/2 ML VIAL IV PRN (09:43)
[2019-07-29] MEDS ORDERED: GLUCAGON 1 MG VIAL IM PRN (09:43)
[2019-07-29] MEDS ORDERED: DEXTROSE 50% 25 GM/50 ML VIAL IV PRN (09:43)
[2019-07-29] MEDS ORDERED: SODIUM CHLORIDE 0.9% 1,000 ML IV PRN (09:47)
[2019-07-29 09:51] LABS: Hypochromasia 2+; Microcytosis 1+
[2019-07-29 09:52] LABS: Ovalocytes Slight; Platelet Estimate Normal
[2019-07-29] MEDS: INSULIN LISPRO 100 UNIT/ML SUBCUT SCH ×3 (12:26→21:40)
[2019-07-29] MEDS: ENOXAPARIN 40 MG/0.4 ML SYRINGE SUBCUT SCH (12:50)
[2019-07-29] MEDS: SODIUM CHLORIDE 0.45% 1,000 ML IV SCH (14:00)
[2019-07-29] MEDS: FUROSEMIDE 40 MG/4 ML VIAL IV SCH (16:44)
[2019-07-29] MEDS ORDERED: hydrALAZINE 20 MG/1 ML VIAL IV PRN (19:54)
[2019-07-29 21:10] LABS: Hematocrit 26.5 VOL% (35.7-47.0); Hemoglobin 8.1 GM/DL (12.0-16.0)
[2019-07-29] MEDS: DOCUSATE SODIUM 100 MG CAPSULE PO SCH (21:39)
[2019-07-29] MEDS: INSULIN NPH/REGULAR 70/30 100 UNIT/ML SUBCUT SCH (21:40)
[2019-07-29] MEDS: cefTRIAXone 1,000 MG in SYRINGE 1 EACH IV SCH (21:41)
[2019-07-30] MEDS: hydrALAZINE 20 MG/1 ML VIAL IV PRN ×2 (00:03→13:18)
[2019-07-30 06:20] LABS: Basophils % 0.4 % (0.0-0.8); Eosinophils # 0.1 10*3/uL (0.0-0.87); Eosinophils % 1.5 % (0.00-10.9); Hematocrit 25.3 VOL% (35.7-47.0); Hemoglobin 7.7 GM/DL (12.0-16.0); Immature Granulocytes % 0.4 %; Immature Granulocytes Absolute 0.03 #; Lymphocytes # 1.7 10*3/uL (1.4-4.0); Mean Corpuscular HGB Conc 30.4 GM/DL (32-36); Mean Corpuscular Volume 73.1 FL (87-102); Mean Platelet Volume 10.4 FL (9.6-12.0); Monocytes % 8.8 % (1.7-12.7); NRBC # 0.02 10*3/uL; Neutrophils % 63.9 % (38.7-73.9); Platelet Count 334 T/CUMM (130-400); Red Blood Count 3.46 MC/CUMM (3.8-5.5); Red Cell Distribution Width 18.3 % (9.3-17.3); White Blood Count 6.7 T/CUMM (4-12)
[2019-07-30 06:52] LABS: Risk Ratio 2.59; VLDL CHOLESTEROL 14.8 MG/DL
[2019-07-30 07:07] LABS: Calcium 8.4 MG/DL (8.5-10.1); Thyroid Stimulating Hormone 1.26 uIU/ml (0.358-3.74)
[2019-07-30] MEDS ORDERED: LISINOPRIL/HCTZ 10-12.5 MG TABLET PO SCH (09:00)
[2019-07-30] MEDS ORDERED: MAGNESIUM SULF RIDER 50 ML IV ONE (09:35)
[2019-07-30] MEDS ORDERED: MAGNESIUM SULF RIDER 2 GM in PREMIX 1 EACH IV ONE (09:37)
[2019-07-30] MEDS: DOCUSATE SODIUM 100 MG CAPSULE PO SCH ×2 (09:45→21:45)
[2019-07-30] MEDS: INSULIN LISPRO 100 UNIT/ML SUBCUT SCH ×4 (09:45→21:44)
[2019-07-30] MEDS: PANTOPRAZOLE 40 MG TABLET PO SCH (09:45)
[2019-07-30] MEDS: FUROSEMIDE 40 MG/4 ML VIAL IV SCH (09:46)
[2019-07-30] MEDS: INSULIN NPH/REGULAR 70/30 100 UNIT/ML SUBCUT SCH ×2 (09:46→21:46)
[2019-07-30] MEDS: SODIUM CHLORIDE 0.45% 1,000 ML IV SCH (09:48)
[2019-07-30] MEDS: ENOXAPARIN 40 MG/0.4 ML SYRINGE SUBCUT SCH (09:59)
[2019-07-30 11:24] LABS: Vitamin B12 399 PG/ML (211-911)
[2019-07-30 11:37] LABS: Basophils % 0.6 % (0.0-0.8); Eosinophils # 0.1 10*3/uL (0.0-0.87); Eosinophils % 1.8 % (0.00-10.9); Hematocrit 25.7 VOL% (35.7-47.0); Hemoglobin 7.8 GM/DL (12.0-16.0); Immature Granulocytes % 0.5 %; Immature Granulocytes Absolute 0.03 #; Lymphocytes # 1.6 10*3/uL (1.4-4.0); Lymphocytes % 24.5 % (21.3-54.2); Mean Corpuscular HGB Conc 30.4 GM/DL (32-36); Mean Corpuscular Volume 72.8 FL (87-102); Mean Platelet Volume 10.2 FL (9.6-12.0); Monocytes % 8.1 % (1.7-12.7); Neutrophils % 64.5 % (38.7-73.9); Platelet Count 334 T/CUMM (130-400); Red Blood Count 3.53 MC/CUMM (3.8-5.5); Red Cell Distribution Width 18.1 % (9.3-17.3); White Blood Count 6.6 T/CUMM (4-12)
[2019-07-30 12:15] LABS: Anisocytosis 1+; Hypochromasia 1+; Platelet Estimate Normal
[2019-07-30 12:16] LABS: Giant Platelets Few; Poikilocytosis Slight
[2019-07-30] MEDS ORDERED: LISINOPRIL/HCTZ 20-12.5 MG TABLET PO SCH (12:30)
[2019-07-30 12:40] LABS: Hematocrit 26.7 VOL% (35.7-47.0)
[2019-07-30 12:58] LABS: Sedimentation Rate-Westergren 109 MM/HR (0-20)
[2019-07-30 14:11] LABS: Apearance,Urine CLEAR (Clear); Bacteria,Urine Occasional /HPF (Few); Bilirubin,Urine Negative (Negative); Blood, Urine Moderate mg/dL (Negative); Glucose,Urine (UA) 150 mg/dL (Negative); Ketones,Urine Negative (Negative); Nitrite,Urine Negative (Negative); Protein,Urine Negative; RBC,Urine 4 /HPF (0-4); Squamous Epithelial Cell,Urine Occasional /HPF (0-10); Urine Color Straw (Yellow); Urine Specific Gravity 1.006 (1.001-1.035); Urine Urobilinogen < 2.0 EU/DL (0.2-1.0); WBC,Urine 2 /HPF (0-6)
[2019-07-30] MEDS: cefTRIAXone 1,000 MG in SYRINGE 1 EACH IV SCH (21:45)
[2019-07-30] MEDS: traZODone 50 MG TABLET PO PRN (21:46)
[2019-07-31 06:01] LABS: Calcium 8.4 MG/DL (8.5-10.1); Osmolality,Calculated 276.7 MOS/KG (273-304)
[2019-07-31 06:33] LABS: Basophils % 0.4 % (0.0-0.8); Eosinophils # 0.2 10*3/uL (0.0-0.87); Eosinophils % 2.9 % (0.00-10.9); Hematocrit 25.6 VOL% (35.7-47.0); Hemoglobin 7.7 GM/DL (12.0-16.0); Immature Granulocytes % 0.3 %; Immature Granulocytes Absolute 0.02 #; Lymphocytes # 1.7 10*3/uL (1.4-4.0); Lymphocytes % 24.9 % (21.3-54.2); Mean Corpuscular HGB Conc 30.1 GM/DL (32-36); Mean Corpuscular Volume 73.8 FL (87-102); Mean Platelet Volume 10.4 FL (9.6-12.0); Monocytes % 12.2 % (1.7-12.7); Neutrophils % 59.3 % (38.7-73.9); Platelet Count 358 T/CUMM (130-400); Red Blood Count 3.47 MC/CUMM (3.8-5.5); Red Cell Distribution Width 18.5 % (9.3-17.3); White Blood Count 6.9 T/CUMM (4-12)
[2019-07-31] MEDS: INSULIN LISPRO 100 UNIT/ML SUBCUT SCH ×4 (08:22→21:26)
[2019-07-31] MEDS: INSULIN NPH/REGULAR 70/30 100 UNIT/ML SUBCUT SCH ×2 (08:56→21:26)
[2019-07-31] MEDS: PANTOPRAZOLE 40 MG TABLET PO SCH (08:57)
[2019-07-31] MEDS: DOCUSATE SODIUM 100 MG CAPSULE PO SCH ×2 (08:57→21:25)
[2019-07-31] MEDS: LISINOPRIL/HCTZ 20-12.5 MG TABLET PO SCH ×2 (08:58→21:25)
[2019-07-31] MEDS: FUROSEMIDE 40 MG/4 ML VIAL IV SCH (08:58)
[2019-07-31] MEDS: carvediloL 3.125 MG TABLET PO SCH ×2 (10:13→21:25)
[2019-07-31 10:39] LABS: Hematocrit 26.7 VOL% (35.7-47.0); Hemoglobin 7.9 GM/DL (12.0-16.0)
[2019-07-31] MEDS: SODIUM CHLORIDE 0.45% 1,000 ML IV SCH (13:23)
[2019-07-31] MEDS: traZODone 50 MG TABLET PO PRN (21:25)
[2019-07-31] MEDS: cefTRIAXone 1,000 MG in SYRINGE 1 EACH IV SCH (21:26)
[2019-08-01 05:15] LABS: Basophils % 0.7 % (0.0-0.8); Eosinophils # 0.3 10*3/uL (0.0-0.87); Eosinophils % 4.3 % (0.00-10.9); Hematocrit 28.1 VOL% (35.7-47.0); Hemoglobin 8.1 GM/DL (12.0-16.0); Immature Granulocytes % 0.3 %; Immature Granulocytes Absolute 0.02 #; Lymphocytes % 33.3 % (21.3-54.2); Mean Corpuscular HGB Conc 28.8 GM/DL (32-36); Mean Corpuscular Volume 74.7 FL (87-102); Mean Platelet Volume 9.7 FL (9.6-12.0); Monocytes % 9.7 % (1.7-12.7); Neutrophils % 51.7 % (38.7-73.9); Platelet Count 364 T/CUMM (130-400); Red Blood Count 3.76 MC/CUMM (3.8-5.5); Red Cell Distribution Width 18.4 % (9.3-17.3); White Blood Count 6.1 T/CUMM (4-12)
[2019-08-01 05:36] LABS: Anisocytosis 1+; Hypochromasia 1+; Microcytosis 1+
[2019-08-01 05:37] LABS: Platelet Estimate Normal
[2019-08-01 05:58] LABS: Calcium 8.1 MG/DL (8.5-10.1); Osmolality,Calculated 277.8 MOS/KG (273-304)
[2019-08-01 08:48] LABS: Hemoglobin A1 (Alkaline) 97.6 % (96.5-98.5); Hemoglobin A2 (Alkaline) 2.4 % (1.5-3.5)
[2019-08-01] MEDS: carvediloL 3.125 MG TABLET PO SCH (09:16)
[2019-08-01] MEDS: DOCUSATE SODIUM 100 MG CAPSULE PO SCH (09:16)
[2019-08-01] MEDS: PANTOPRAZOLE 40 MG TABLET PO SCH (09:16)
[2019-08-01] MEDS: LISINOPRIL/HCTZ 20-12.5 MG TABLET PO SCH (09:17)
[2019-08-01] MEDS: FUROSEMIDE 40 MG/4 ML VIAL IV SCH (09:17)
[2019-08-01] MEDS: INSULIN LISPRO 100 UNIT/ML SUBCUT SCH ×2 (09:18→12:22)
[2019-08-01] MEDS: INSULIN NPH/REGULAR 70/30 100 UNIT/ML SUBCUT SCH (09:19)
[2019-08-01] MEDS: SODIUM CHLORIDE 0.45% 1,000 ML IV SCH (11:47)
[2019-08-01 12:38] VITALS: BP 179/87
== END 2019-08-01 16:56 | disposition home or self-care (01) | DRG 811 ==
LOC: N.ED 07:47 → N.EDINP 09:43 → N.TELEN 11:31
PROVIDERS: ADMIT Family Medicine; ATTEND Family Medicine

== ENCOUNTER 2020-11-07 13:03 | Inpatient (IN) ==
[2020-11-07] MEDS ORDERED: ASPIRIN 325 MG TABLET PO STA (13:32)
[2020-11-07] MEDS ORDERED: hydrALAZINE 20 MG/1 ML VIAL IV STA (13:36)
[2020-11-07] MEDS ORDERED: METOPROLOL TARTRATE 5 MG/5 ML VIAL IV STA (13:36)
[2020-11-07] MEDS ORDERED: ONDANSETRON 4 MG/2 ML VIAL ONE (13:51)
[2020-11-07 14:05] LABS: Basophils % 0.5 % (0.0-0.8); Eosinophils % 0.5 % (0.00-10.9); Hematocrit 28.1 VOL% (35.7-47.0); Hemoglobin 7.5 GM/DL (12.0-16.0); Immature Granulocytes % 0.5 %; Immature Granulocytes Absolute 0.03 #; Lymphocytes # 0.9 10*3/uL (1.4-4.0); Lymphocytes % 15.8 % (21.3-54.2); Mean Corpuscular HGB Conc 26.7 GM/DL (32-36); Mean Corpuscular Volume 85.9 FL (87-102); Monocytes % 5.4 % (1.7-12.7); NRBC # 0.03 10*3/uL; Neutrophils % 77.3 % (38.7-73.9); Platelet Count 487 T/CUMM (130-400); Red Blood Count 3.27 MC/CUMM (3.8-5.5); Red Cell Distribution Width 18.7 % (9.3-17.3); White Blood Count 5.5 T/CUMM (4-12)
[2020-11-07 14:18] LABS: Albumin 2.3 G/DL (3.4-5.0); Bilirubin,Total 0.7 MG/DL (0.2-1.0); Calcium 8.2 MG/DL (8.5-10.1); Osmolality,Calculated 285.5 MOS/KG (273-304); Potassium 4.6 MMOL/L (3.5-5.1); Total Protein 8.3 G/DL (6.4-8.3)
[2020-11-07 14:49] LABS: Platelet Estimate Adequate
[2020-11-07 14:50] LABS: Microcytosis 1+; Polychromasia 1+
[2020-11-07 14:51] LABS: Anisocytosis 1+; Hypochromasia 1+; Tear Drop Cells Few
[2020-11-07 14:54] LABS: % Iron Saturation 4.9 % (18-50); Ferritin 19.3 ng/ml (8-252)
[2020-11-07] MEDS ORDERED: ONDANSETRON 4 MG/2 ML VIAL IV STA (15:06)
[2020-11-07] MEDS ORDERED: niCARdipine 25 MG/10 ML VIAL IV ONE (15:19)
[2020-11-07] MEDS: niCARdipine INJ 25 MG in SODIUM CHLORIDE 0.9% 240 ML IV PRN ×2 (15:25→19:20)
[2020-11-07] MEDS ORDERED: lisinopriL 10 MG TABLET PO PRN (15:37)
[2020-11-07] MEDS ORDERED: ALBUTEROL 2.5 MG/3 ML NEB RESP TX PRN (15:39)
[2020-11-07] MEDS ORDERED: DOCUSATE SODIUM 100 MG CAPSULE PO PRN (15:39)
[2020-11-07 16:11] LABS: Folate 14.8 NG/ML (5.38-24.0)
[2020-11-07] MEDS: LACTATED RINGERS 1,000 ML IV SCH (16:31)
[2020-11-07] MEDS ORDERED: FUROSEMIDE 40 MG/4 ML VIAL IV ONE (17:09)
[2020-11-07] MEDS ORDERED: DEXTROSE 50% 25 GM/50 ML VIAL IV PRN (17:14)
[2020-11-07] MEDS ORDERED: GLUCAGON 1 MG VIAL IM PRN (17:14)
[2020-11-07] MEDS ORDERED: INSULIN LISPRO 100 UNIT/ML ONE (17:24)
[2020-11-07] MEDS: INSULIN LISPRO 100 UNIT/ML SUBCUT SCH ×2 (17:33→20:47)
[2020-11-07] MEDS: ENOXAPARIN 40 MG/0.4 ML SYRINGE SUBCUT SCH (17:33)
[2020-11-07] MEDS ORDERED: ONDANSETRON 4 MG/2 ML VIAL IV PRN (19:40)
[2020-11-07] MEDS: LABETALOL 100 MG TABLET PO SCH (20:15)
[2020-11-07 20:17] LABS: Barbiturates Screen,Urine Negative (Negative); Benzodiazepines Screen,Urine Negative (Negative); Cannabinoid Screen,Urine Negative (Negative); Opiate Screen,Urine Negative (Negative); Phencyclidine Screen,Urine Negative (Negative)
[2020-11-07] MEDS: FERROUS SULFATE 325 MG TABLET PO SCH (20:47)
[2020-11-07] MEDS: INSULIN NPH/REGULAR 70/30 100 UNIT/ML SUBCUT SCH (20:48)
[2020-11-07] MEDS ORDERED: cloNIDine 0.1 MG TABLET PO SCH (21:00)
[2020-11-08 04:27] LABS: Blood Urea Nitrogen 14 MG/DL (7-18); Carbon Dioxide 33 MMOL/L (21-32); Estimated Glom Filtration Rate 149 ML/MIN; Glucose 131 MG/DL (74-106); Osmolality,Calculated 283.3 MOS/KG (273-304); Sodium 141 MMOL/L (136-145); Troponin I < 0.015 NG/ML (0.00-0.045)
[2020-11-08 04:29] LABS: Basophils % 0.5 % (0.0-0.8); Eosinophils % 0.3 % (0.00-10.9); Hematocrit 22.7 VOL% (35.7-47.0); Immature Granulocytes % 0.5 %; Immature Granulocytes Absolute 0.03 #; Lymphocytes # 1.7 10*3/uL (1.4-4.0); Lymphocytes % 28.2 % (21.3-54.2); Mean Corpuscular HGB Conc 28.6 GM/DL (32-36); Mean Corpuscular Volume 82.2 FL (87-102); Mean Platelet Volume 10.9 FL (9.6-12.0); Monocytes % 11.6 % (1.7-12.7); NRBC # 0.02 10*3/uL; Neutrophils % 58.9 % (38.7-73.9); Platelet Count 434 T/CUMM (130-400); Red Blood Count 2.76 MC/CUMM (3.8-5.5); Red Cell Distribution Width 18.7 % (9.3-17.3)
[2020-11-08 04:30] LABS: Hemoglobin 6.5 GM/DL (12.0-16.0)
[2020-11-08 04:49] LABS: Anisocytosis 1+; Hypochromasia 1+; Microcytosis 1+
[2020-11-08 04:50] LABS: Platelet Estimate Increased; Polychromasia Slight; Target Cells Slight
[2020-11-08] MEDS: LACTATED RINGERS 1,000 ML IV SCH (06:29)
[2020-11-08] MEDS: INSULIN LISPRO 100 UNIT/ML SUBCUT SCH ×4 (07:47→20:46)
[2020-11-08] MEDS ORDERED: FUROSEMIDE 40 MG/4 ML VIAL IV ONE (08:00)
[2020-11-08] MEDS: INSULIN NPH/REGULAR 70/30 100 UNIT/ML SUBCUT SCH ×2 (08:27→20:46)
[2020-11-08] MEDS: POTASSIUM CHLORIDE 20 MEQ TABLET PO SCH ×3 (08:27→17:12)
[2020-11-08] MEDS: FERROUS SULFATE 325 MG TABLET PO SCH ×2 (08:27→20:45)
[2020-11-08] MEDS: LABETALOL 100 MG TABLET PO SCH ×2 (08:28→20:45)
[2020-11-08] MEDS ORDERED: MAGNESIUM SULF RIDER 2 GM in PREMIX 1 EACH IV ONE (08:41)
[2020-11-08] MEDS ORDERED: PNEUMOCOCCAL VACCINE (13 VALENT) 0.5 ML SYRINGE IM ONE (09:00)
[2020-11-08] MEDS ORDERED: lisinopriL 10 MG TABLET PO SCH (09:00)
[2020-11-08] MEDS ORDERED: INFLUENZA VIRUS VACCINE 0.5 ML SYRINGE IM ONE (09:00)
[2020-11-08] MEDS: ENOXAPARIN 40 MG/0.4 ML SYRINGE SUBCUT SCH (17:12)
[2020-11-08 19:22] LABS: Hematocrit 29.8 VOL% (35.7-47.0)
[2020-11-08 19:27] LABS: Hemoglobin 8.4 GM/DL (12.0-16.0)
[2020-11-09 05:27] LABS: Basophils # 0.1 10*3/uL (0.0-0.2); Basophils % 0.8 % (0.0-0.8); Eosinophils # 0.3 10*3/uL (0.0-0.87); Eosinophils % 4.3 % (0.00-10.9); Hematocrit 27.4 VOL% (35.7-47.0); Immature Granulocytes % 0.9 %; Immature Granulocytes Absolute 0.06 #; Lymphocytes # 1.5 10*3/uL (1.4-4.0); Lymphocytes % 23.3 % (21.3-54.2); Mean Corpuscular HGB Conc 29.2 GM/DL (32-36); Mean Platelet Volume 9.8 FL (9.6-12.0); Monocytes % 8.9 % (1.7-12.7); NRBC # 0.04 10*3/uL; Neutrophils % 61.8 % (38.7-73.9); Platelet Count 392 T/CUMM (130-400); Red Blood Count 3.34 MC/CUMM (3.8-5.5); Red Cell Distribution Width 17.9 % (9.3-17.3); White Blood Count 6.3 T/CUMM (4-12)
[2020-11-09 05:48] LABS: Osmolality,Calculated 281.4 MOS/KG (273-304); Potassium 3.5 MMOL/L (3.5-5.1)
[2020-11-09 05:57] LABS: Eosinophils 7 % (0-10); Hypochromasia 2+; Lymphocytes 21 % (20-55); Microcytosis 1+; Nucleated Red Blood Cells 1 (0-5); Polychromasia Slight; Segmented Neutrophils 64 % (50-85); Total Cells Counted 100
[2020-11-09 05:58] LABS: Anisocytosis 1+; Platelet Estimate Normal
[2020-11-09] MEDS: LABETALOL 100 MG TABLET PO SCH ×2 (09:17→21:26)
[2020-11-09] MEDS: FERROUS SULFATE 325 MG TABLET PO SCH ×2 (09:17→21:27)
[2020-11-09] MEDS: INSULIN LISPRO 100 UNIT/ML SUBCUT SCH ×4 (09:18→21:30)
[2020-11-09] MEDS: INSULIN NPH/REGULAR 70/30 100 UNIT/ML SUBCUT SCH ×2 (09:19→21:29)
[2020-11-09] MEDS ORDERED: cloNIDine 0.1 MG TABLET PO ONE (11:30)
[2020-11-09] MEDS ORDERED: guaiFENesin/DM ER 600-30 MG TABLET PO PRN (11:31)
[2020-11-09] MEDS ORDERED: hydrALAZINE 20 MG/1 ML VIAL IV PRN (13:04)
[2020-11-09] MEDS: hydrALAZINE 25 MG TABLET PO SCH ×2 (14:03→21:27)
[2020-11-09] MEDS: cefTRIAXone 1,000 MG in SODIUM CHLORIDE 0.9% 100 ML IV SCH (14:03)
[2020-11-09] MEDS: ENOXAPARIN 40 MG/0.4 ML SYRINGE SUBCUT SCH (17:31)
[2020-11-09] MEDS: SILVER SULFADIAZINE 1% CREAM 25 GM TUBE TOP SCH (18:05)
[2020-11-10 06:17] LABS: Basophils % 0.7 % (0.0-0.8); Eosinophils # 0.3 10*3/uL (0.0-0.87); Eosinophils % 4.7 % (0.00-10.9); Hematocrit 30.7 VOL% (35.7-47.0); Hemoglobin 8.6 GM/DL (12.0-16.0); Immature Granulocytes % 0.5 %; Immature Granulocytes Absolute 0.03 #; Lymphocytes # 1.8 10*3/uL (1.4-4.0); Lymphocytes % 32.7 % (21.3-54.2); Mean Corpuscular Volume 85.5 FL (87-102); Mean Platelet Volume 10.6 FL (9.6-12.0); Monocytes % 9.8 % (1.7-12.7); NRBC # 0.02 10*3/uL; Neutrophils % 51.6 % (38.7-73.9); Platelet Count 444 T/CUMM (130-400); Red Blood Count 3.59 MC/CUMM (3.8-5.5); Red Cell Distribution Width 18.7 % (9.3-17.3); White Blood Count 5.5 T/CUMM (4-12)
[2020-11-10 06:28] LABS: Albumin 2.1 G/DL (3.4-5.0); Bilirubin,Total 0.9 MG/DL (0.2-1.0); Calcium 8.7 MG/DL (8.5-10.1); Free T4 (Free Thyroxine) 1.4 NG/DL (0.76-1.46); Osmolality,Calculated 279.5 MOS/KG (273-304); Potassium 3.6 MMOL/L (3.5-5.1); Total Protein 7.9 G/DL (5.0-7.5)
[2020-11-10 06:28] LABS: Hypochromasia 1+; Microcytosis 1+
[2020-11-10 06:29] LABS: Ovalocytes Slight; Platelet Estimate Adequate
[2020-11-10] MEDS: FERROUS SULFATE 325 MG TABLET PO SCH (09:09)
[2020-11-10] MEDS: LABETALOL 100 MG TABLET PO SCH (09:09)
[2020-11-10] MEDS: hydrALAZINE 25 MG TABLET PO SCH ×2 (09:09→14:29)
[2020-11-10] MEDS: INSULIN LISPRO 100 UNIT/ML SUBCUT SCH ×3 (09:09→12:22)
[2020-11-10] MEDS: SILVER SULFADIAZINE 1% CREAM 25 GM TUBE TOP SCH (09:10)
[2020-11-10] MEDS: INSULIN NPH/REGULAR 70/30 100 UNIT/ML SUBCUT SCH (09:10)
[2020-11-10] MEDS: cefTRIAXone 1,000 MG in SODIUM CHLORIDE 0.9% 100 ML IV SCH (14:28)
[2020-11-10 17:23] VITALS: BP 174/81
== END 2020-11-10 17:10 | disposition left against medical advice (07) | DRG 304 ==
LOC: N.ED 13:03 → SUATTDRO 15:31 → N.EDINP 15:31 → N.ICU 15:50 → N.5E 11-08 12:44
PROVIDERS: ADMIT Internal Medicine; ATTEND Family Medicine

== ENCOUNTER 2020-12-13 08:51 | Observation (INO) ==
[2020-12-13] MEDS ORDERED: SODIUM CHLORIDE 0.9% 1,000 ML IV STA (09:42)
[2020-12-13] MEDS ORDERED: HYDROmorphone 2 MG/1 ML VIAL IV STA (09:48)
[2020-12-13] MEDS ORDERED: ONDANSETRON 4 MG/2 ML VIAL IV STA (09:48)
[2020-12-13] MEDS ORDERED: hydrALAZINE 20 MG/1 ML VIAL IV STA (09:48)
[2020-12-13 10:36] LABS: Basophils % 0.7 % (0.0-0.8); Eosinophils % 0.5 % (0.00-10.9); Hematocrit 35.2 VOL% (35.7-47.0); Hemoglobin 10.4 GM/DL (12.0-16.0); Immature Granulocytes % 0.4 %; Immature Granulocytes Absolute 0.02 #; Lymphocytes # 0.9 10*3/uL (1.4-4.0); Mean Corpuscular HGB Conc 29.5 GM/DL (32-36); Mean Corpuscular Volume 89.3 FL (87-102); Mean Platelet Volume 10.7 FL (9.6-12.0); Neutrophils % 76.4 % (38.7-73.9); Platelet Count 360 T/CUMM (130-400); Red Blood Count 3.94 MC/CUMM (3.8-5.5); Red Cell Distribution Width 21.2 % (9.3-17.3); White Blood Count 5.7 T/CUMM (4-12)
[2020-12-13 11:02] LABS: Amorphous Crystals,Urine Few /HPF (Few); Bilirubin,Urine Negative (Negative); Blood, Urine Small mg/dL (Negative); Glucose,Urine (UA) Negative (Negative); Hyaline Casts,Urine 1 /LPF (0-3); Ketones,Urine 5 mg/dL (Negative); Mucus,Urine Occasional /LPF (Occasional); Nitrite,Urine Negative (Negative); Protein,Urine 100 MG/DL; RBC,Urine 2 /HPF (0-4); Squamous Epithelial Cell,Urine Occasional /HPF (0-10); Urine Appearance CLEAR (Clear); Urine Color Yellow (Yellow); Urine Specific Gravity 1.029 (1.001-1.035); Urine Urobilinogen < 2.0 EU/DL (0.2-1.0); WBC,Urine 2 /HPF (0-6)
[2020-12-13 11:05] LABS: Anisocytosis 2+; Hypochromasia Slight; Macrocytosis 1+; Platelet Estimate Normal
[2020-12-13 11:06] LABS: Polychromasia Slight
[2020-12-13 11:09] LABS: Albumin 2.2 G/DL (3.4-5.0); Calcium 8.4 MG/DL (8.5-10.1); Osmolality,Calculated 276.7 MOS/KG (273-304); Potassium 3.3 MMOL/L (3.5-5.1); Total Protein 7.9 G/DL (6.4-8.2)
[2020-12-13] MEDS ORDERED: ONDANSETRON 4 MG/2 ML VIAL IV PRN (12:02)
[2020-12-13] MEDS ORDERED: SODIUM CHLORIDE 0.9% 1,000 ML IV SCH (12:02)
[2020-12-13] MEDS ORDERED: ACETAMINOPHEN 325 MG TABLET PO PRN (12:02)
[2020-12-13] MEDS ORDERED: GLUCAGON 1 MG VIAL IM PRN (12:02)
[2020-12-13] MEDS ORDERED: DEXTROSE 50% 25 GM/50 ML VIAL IV PRN ×2 (12:02→15:14)
[2020-12-13] MEDS: INSULIN LISPRO 100 UNIT/ML SUBCUT SCH ×3 (12:17→21:49)
[2020-12-13] MEDS ORDERED: hydrALAZINE 20 MG/1 ML VIAL IV PRN (13:05)
[2020-12-13] MEDS ORDERED: ONDANSETRON 4 MG TABLET PO PRN (13:12)
[2020-12-13] MEDS ORDERED: MAGNESIUM SULF RIDER 2 GM in PREMIX 1 EACH IV PRN (13:23)
[2020-12-13] MEDS ORDERED: MAGNESIUM SULF RIDER 4 GM in PREMIX 1 EACH IV PRN (13:23)
[2020-12-13] MEDS ORDERED: POTASSIUM CHLORIDE 20 MEQ TABLET PO PRN (13:23)
[2020-12-13] MEDS: diphenhydrAMINE CAP 25 MG CAPSULE PO PRN ×2 (13:26→21:47)
[2020-12-13] MEDS ORDERED: carvediloL 6.25 MG TABLET PO SCH (17:00)
[2020-12-13] MEDS: FUROSEMIDE 40 MG/4 ML VIAL IV ONE ×2 (18:14→21:48)
[2020-12-13] MEDS ORDERED: INSULIN NPH/REGULAR 70/30 100 UNIT/ML SUBCUT SCH (19:00)
[2020-12-13] MEDS ORDERED: LABETALOL 100 MG TABLET PO SCH (21:00)
[2020-12-13] MEDS: DOCUSATE SODIUM 100 MG CAPSULE PO SCH (21:04)
[2020-12-13] MEDS: FERROUS SULFATE 325 MG TABLET PO SCH (21:04)
[2020-12-14 07:32] LABS: Basophils % 0.4 % (0.0-0.8); Eosinophils # 0.1 10*3/uL (0.0-0.87); Eosinophils % 1.3 % (0.00-10.9); Immature Granulocytes % 0.4 %; Immature Granulocytes Absolute 0.02 #; Lymphocytes # 1.4 10*3/uL (1.4-4.0); Lymphocytes % 26.4 % (21.3-54.2); Mean Corpuscular HGB Conc 29.1 GM/DL (32-36); Mean Corpuscular Volume 89.5 FL (87-102); Mean Platelet Volume 10.5 FL (9.6-12.0); Monocytes % 10.4 % (1.7-12.7); Neutrophils % 61.1 % (38.7-73.9); Platelet Count 367 T/CUMM (130-400); Red Blood Count 3.91 MC/CUMM (3.8-5.5); Red Cell Distribution Width 21.2 % (9.3-17.3); White Blood Count 5.4 T/CUMM (4-12)
[2020-12-14 07:36] LABS: Hemoglobin 10.2 GM/DL (12.0-16.0)
[2020-12-14 07:44] LABS: Anisocytosis 2+; Eosinophils 2 % (0-10); Lymphocytes 25 % (20-55); Macrocytosis 2+; Platelet Estimate Normal; Segmented Neutrophils 63 % (50-85); Total Cells Counted 100
[2020-12-14 07:47] LABS: Albumin 1.9 G/DL (3.4-5.0); Bilirubin,Direct 0.12 MG/DL (0.0-0.20); Bilirubin,Indirect 0.4 MG/DL (0.0-1.0); Bilirubin,Total 0.5 MG/DL (0.2-1.0); Calcium 8.3 MG/DL (8.5-10.1); Potassium 3.5 MMOL/L (3.5-5.1); Total Protein 7.1 G/DL (6.4-8.2)
[2020-12-14] MEDS ORDERED: carvediloL 12.5 MG TABLET PO SCH (08:00)
[2020-12-14] MEDS: DOCUSATE SODIUM 100 MG CAPSULE PO SCH (08:16)
[2020-12-14] MEDS: FERROUS SULFATE 325 MG TABLET PO SCH (08:16)
[2020-12-14] MEDS: INSULIN LISPRO 100 UNIT/ML SUBCUT SCH ×2 (08:17→11:36)
[2020-12-14] MEDS ORDERED: PANTOPRAZOLE 40 MG TABLET PO SCH (09:00)
[2020-12-14] MEDS ORDERED: FUROSEMIDE 20 MG TABLET PO SCH (09:00)
[2020-12-14] MEDS ORDERED: POTASSIUM CHLORIDE 20 MEQ TABLET PO SCH (09:00)
[2020-12-14] MEDS ORDERED: INSULIN NPH/REGULAR 70/30 100 UNIT/ML SUBCUT SCH (09:00)
[2020-12-14] MEDS ORDERED: ASPIRIN EC 81 MG TABLET PO SCH (09:30)
[2020-12-14] MEDS ORDERED: ROSUVASTATIN 20 MG TABLET PO SCH (09:30)
[2020-12-14 09:52] LABS: Risk Ratio 4.05; VLDL CHOLESTEROL 15.8 MG/DL
[2020-12-14] MEDS ORDERED: ISOSORBIDE MONONITRATE 30 MG TABLET PO SCH (10:00)
[2020-12-14] MEDS ORDERED: LOSARTAN 25 MG TABLET PO SCH (10:30)
[2020-12-14] MEDS ORDERED: SPIRONOLACTONE 25 MG TABLET PO SCH (11:00)
[2020-12-14 11:28] VITALS: BP 166/82
== END 2020-12-14 14:29 | disposition home or self-care (01) ==
LOC: N.EDINP 08:51 → N.ED 08:51 → N.3E 10:45
PROVIDERS: ADMIT Family Medicine; ATTEND Family Medicine

== ENCOUNTER 2020-12-17 21:47 | Observation (INO) ==
[2020-12-17] MEDS ORDERED: KETOROLAC 30 MG/1 ML VIAL IV STA (22:02)
[2020-12-17] MEDS ORDERED: PANTOPRAZOLE 40 MG VIAL IV STA (22:02)
[2020-12-17] MEDS ORDERED: ALUM/MAG/SIMETH/LIDO VISC 1:1 30 ML BOTTLE PO STA (22:03)
[2020-12-17 22:46] LABS: Albumin 2.4 G/DL (3.4-5.0); Bilirubin,Total 0.7 MG/DL (0.2-1.0); Calcium 8.4 MG/DL (8.5-10.1); Osmolality,Calculated 277.8 MOS/KG (273-304); Potassium 4.1 MMOL/L (3.5-5.1); Total Protein 8.1 G/DL (6.4-8.2)
[2020-12-17] MEDS ORDERED: MAGNESIUM SULF RIDER 2 GM in PREMIX 1 EACH IV STA (22:53)
[2020-12-17] MEDS ORDERED: hydrALAZINE 20 MG/1 ML VIAL ONE (22:54)
[2020-12-17] MEDS ORDERED: hydrALAZINE 20 MG/1 ML VIAL IV STA ×2 (22:54→23:44)
[2020-12-17] MEDS ORDERED: FUROSEMIDE 40 MG/4 ML VIAL IV STA ×2 (22:58→23:44)
[2020-12-17 22:59] LABS: Basophils % 0.6 % (0.0-0.8); Eosinophils # 0.1 10*3/uL (0.0-0.87); Eosinophils % 1.2 % (0.00-10.9); Hematocrit 36.3 VOL% (35.7-47.0); Hemoglobin 10.7 GM/DL (12.0-16.0); Immature Granulocytes % 0.4 %; Immature Granulocytes Absolute 0.02 #; Lymphocytes # 0.8 10*3/uL (1.4-4.0); Lymphocytes % 15.4 % (21.3-54.2); Mean Corpuscular HGB Conc 29.5 GM/DL (32-36); Mean Corpuscular Volume 89.6 FL (87-102); Mean Platelet Volume 10.2 FL (9.6-12.0); Monocytes % 7.7 % (1.7-12.7); Neutrophils % 74.7 % (38.7-73.9); Platelet Count 384 T/CUMM (130-400); Red Blood Count 4.05 MC/CUMM (3.8-5.5); Red Cell Distribution Width 21.1 % (9.3-17.3); White Blood Count 5.1 T/CUMM (4-12)
[2020-12-17] MEDS ORDERED: NITROGLYCERIN 2% OINT 1 INCH/GM PACK TOP STA (23:44)
[2020-12-17] MEDS ORDERED: MORPHINE 4 MG/1 ML VIAL IV STA (23:44)
[2020-12-17] MEDS ORDERED: ONDANSETRON 4 MG/2 ML VIAL IV STA (23:44)
[2020-12-18] MEDS ORDERED: DEXTROSE 50% 25 GM/50 ML VIAL IV PRN (01:04)
[2020-12-18] MEDS ORDERED: ACETAMINOPHEN 325 MG TABLET PO PRN (01:04)
[2020-12-18] MEDS ORDERED: ONDANSETRON 4 MG/2 ML VIAL IV PRN (01:04)
[2020-12-18] MEDS ORDERED: hydrALAZINE 20 MG/1 ML VIAL IV PRN ×2 (01:04→17:12)
[2020-12-18] MEDS ORDERED: GLUCAGON 1 MG VIAL IM PRN (01:04)
[2020-12-18] MEDS: SODIUM CHLORIDE 0.9% 1,000 ML IV SCH (02:19)
[2020-12-18 02:28] LABS: Bilirubin,Urine Negative (Negative); Blood, Urine Small mg/dL (Negative); Glucose,Urine (UA) Negative (Negative); Hyaline Casts,Urine 5 /LPF (0-3); Ketones,Urine 5 mg/dL (Negative); Mucus,Urine Occasional /LPF (Occasional); Nitrite,Urine Negative (Negative); Protein,Urine 100 MG/DL; RBC,Urine 2 /HPF (0-4); Squamous Epithelial Cell,Urine Occasional /HPF (0-10); Urine Appearance CLEAR (Clear); Urine Color Straw (Yellow); Urine Specific Gravity 1.008 (1.001-1.035); Urine Urobilinogen < 2.0 EU/DL (0.2-1.0); WBC,Urine 1 /HPF (0-6)
[2020-12-18] MEDS: MORPHINE 4 MG/1 ML VIAL IV PRN ×2 (03:57→09:05)
[2020-12-18 04:18] LABS: Basophils % 0.4 % (0.0-0.8); Hematocrit 38.4 VOL% (35.7-47.0); Hemoglobin 11.2 GM/DL (12.0-16.0); Immature Granulocytes % 0.2 %; Immature Granulocytes Absolute 0.01 #; Lymphocytes # 0.5 10*3/uL (1.4-4.0); Lymphocytes % 10.3 % (21.3-54.2); Mean Corpuscular HGB Conc 29.2 GM/DL (32-36); Mean Corpuscular Volume 89.9 FL (87-102); Mean Platelet Volume 10.2 FL (9.6-12.0); Monocytes % 4.9 % (1.7-12.7); Neutrophils % 84.2 % (38.7-73.9); Platelet Count 368 T/CUMM (130-400); Red Blood Count 4.27 MC/CUMM (3.8-5.5); Red Cell Distribution Width 20.9 % (9.3-17.3); White Blood Count 4.5 T/CUMM (4-12)
[2020-12-18 04:24] LABS: Albumin 2.1 G/DL (3.4-5.0); Bilirubin,Total 0.6 MG/DL (0.2-1.0); Calcium 8.4 MG/DL (8.5-10.1); Osmolality,Calculated 273.2 MOS/KG (273-304); Potassium 3.3 MMOL/L (3.5-5.1); Total Protein 7.9 G/DL (6.4-8.2)
[2020-12-18 04:36] LABS: Eosinophils 1 % (0-10); Lymphocytes 6 % (20-55); Platelet Estimate Adequate; Segmented Neutrophils 88 % (50-85); Total Cells Counted 100
[2020-12-18 04:37] LABS: Hypochromasia Slight; Macrocytosis Slight
[2020-12-18 04:38] LABS: Polychromasia Slight
[2020-12-18] MEDS: NITROGLYCERIN 2% OINT 1 INCH/GM PACK TOP SCH ×3 (05:00→18:45)
[2020-12-18] MEDS ORDERED: INSULIN REGULAR 100 UNIT/ML SUBCUT SCH (06:00)
[2020-12-18] MEDS ORDERED: POTASSIUM CHLORIDE 20 MEQ TABLET PO PRN (07:58)
[2020-12-18] MEDS: INSULIN REGULAR 100 UNIT/ML SUBCUT SCH ×4 (08:59→21:54)
[2020-12-18] MEDS ORDERED: PANTOPRAZOLE 40 MG VIAL IV SCH (09:00)
[2020-12-18] MEDS: FUROSEMIDE 40 MG/4 ML VIAL IV SCH ×2 (09:01→18:29)
[2020-12-18] MEDS: ENOXAPARIN 40 MG/0.4 ML SYRINGE SUBCUT SCH (09:10)
[2020-12-18] MEDS: DOCUSATE SODIUM 100 MG CAPSULE PO SCH ×2 (09:10→21:54)
[2020-12-18] MEDS: PANTOPRAZOLE 40 MG TABLET PO SCH (09:11)
[2020-12-18] MEDS: SPIRONOLACTONE 25 MG TABLET PO SCH (10:25)
[2020-12-18] MEDS: POTASSIUM CHLORIDE 20 MEQ TABLET PO SCH ×2 (10:34→12:14)
[2020-12-18] MEDS: carvediloL 12.5 MG TABLET PO SCH (18:34)
[2020-12-18] MEDS: INSULIN NPH/REGULAR 70/30 100 UNIT/ML SUBCUT SCH (21:55)
[2020-12-19] MEDS: NITROGLYCERIN 2% OINT 1 INCH/GM PACK TOP SCH ×4 (00:07→17:29)
[2020-12-19] MEDS: SODIUM CHLORIDE 0.9% 1,000 ML IV SCH (01:37)
[2020-12-19] MEDS: DOCUSATE SODIUM 100 MG CAPSULE PO SCH ×2 (09:43→21:07)
[2020-12-19] MEDS: ROSUVASTATIN 20 MG TABLET PO SCH (09:43)
[2020-12-19] MEDS: POTASSIUM CHLORIDE 20 MEQ TABLET PO SCH (09:43)
[2020-12-19] MEDS: SPIRONOLACTONE 25 MG TABLET PO SCH (09:43)
[2020-12-19] MEDS: PANTOPRAZOLE 40 MG TABLET PO SCH (09:43)
[2020-12-19] MEDS: carvediloL 12.5 MG TABLET PO SCH ×2 (09:43→16:55)
[2020-12-19] MEDS: ASPIRIN EC 81 MG TABLET PO SCH (09:44)
[2020-12-19] MEDS: FUROSEMIDE 40 MG/4 ML VIAL IV SCH ×2 (09:44→17:27)
[2020-12-19] MEDS: ENOXAPARIN 40 MG/0.4 ML SYRINGE SUBCUT SCH (09:44)
[2020-12-19] MEDS: MULTIVITAMIN (CENTRUM) TABLET PO SCH (09:44)
[2020-12-19] MEDS: INSULIN REGULAR 100 UNIT/ML SUBCUT SCH ×4 (09:45→20:16)
[2020-12-19] MEDS: INSULIN NPH/REGULAR 70/30 100 UNIT/ML SUBCUT SCH ×2 (09:49→20:16)
[2020-12-19] MEDS ORDERED: PROMETHAZINE INJ 12.5 MG in SODIUM CHLORIDE 0.9% 50 ML IV PRN (10:06)
[2020-12-19] MEDS: FLUCONAZOLE 100 MG TABLET PO SCH (17:26)
[2020-12-20] MEDS: NITROGLYCERIN 2% OINT 1 INCH/GM PACK TOP SCH ×3 (02:03→11:23)
[2020-12-20] MEDS: SODIUM CHLORIDE 0.9% 1,000 ML IV SCH (02:26)
[2020-12-20] MEDS: INSULIN REGULAR 100 UNIT/ML SUBCUT SCH ×3 (07:53→15:33)
[2020-12-20] MEDS: INSULIN NPH/REGULAR 70/30 100 UNIT/ML SUBCUT SCH (08:59)
[2020-12-20] MEDS: ENOXAPARIN 40 MG/0.4 ML SYRINGE SUBCUT SCH (08:59)
[2020-12-20] MEDS: FUROSEMIDE 40 MG/4 ML VIAL IV SCH (08:59)
[2020-12-20] MEDS ORDERED: SKIN HEALING OINT (AQUAPHOR) 50 GM TUBE TOP PRN (11:42)
[2020-12-20] MEDS ORDERED: SILVER SULFADIAZINE 1% CREAM 25 GM TUBE TOP SCH (12:00)
[2020-12-20] MEDS: carvediloL 12.5 MG TABLET PO SCH (12:23)
[2020-12-20] MEDS: ROSUVASTATIN 20 MG TABLET PO SCH (12:23)
[2020-12-20] MEDS: ASPIRIN EC 81 MG TABLET PO SCH (12:23)
[2020-12-20] MEDS: DOCUSATE SODIUM 100 MG CAPSULE PO SCH (12:24)
[2020-12-20] MEDS: FLUCONAZOLE 100 MG TABLET PO SCH (12:24)
[2020-12-20] MEDS: SPIRONOLACTONE 25 MG TABLET PO SCH (12:24)
[2020-12-20] MEDS: MULTIVITAMIN (CENTRUM) TABLET PO SCH (12:24)
[2020-12-20] MEDS: POTASSIUM CHLORIDE 20 MEQ TABLET PO SCH (12:24)
[2020-12-20] MEDS: PANTOPRAZOLE 40 MG TABLET PO SCH (12:24)
[2020-12-20 15:44] VITALS: BP 163/95
== END 2020-12-20 15:46 | disposition home or self-care (01) ==
LOC: N.EDINP 21:47 → N.ED 21:47 → N.TELES 12-18 01:02
PROVIDERS: ADMIT Family Medicine; ATTEND Family Medicine

== ENCOUNTER 2020-12-24 23:59 | Observation (INO) ==
[2020-12-25] MEDS ORDERED: SODIUM CHLORIDE 0.9% 500 ML IV STA (00:37)
[2020-12-25] MEDS ORDERED: HYDROmorphone 2 MG/1 ML VIAL IV STA (00:37)
[2020-12-25] MEDS ORDERED: ALUM/MAG/SIMETH/LIDO VISC 1:1 30 ML BOTTLE PO STA (00:37)
[2020-12-25] MEDS ORDERED: PANTOPRAZOLE 40 MG VIAL IV STA (00:37)
[2020-12-25] MEDS ORDERED: ONDANSETRON 4 MG/2 ML VIAL IV STA (00:37)
[2020-12-25] MEDS ORDERED: METOCLOPRAMIDE 10 MG/2 ML VIAL IV STA (00:38)
[2020-12-25 01:20] LABS: Basophils % 0.9 % (0.0-0.8); Eosinophils % 0.9 % (0.00-10.9); Hematocrit 36.1 VOL% (35.7-47.0); Hemoglobin 10.8 GM/DL (12.0-16.0); Immature Granulocytes % 0.2 %; Immature Granulocytes Absolute 0.01 #; Lymphocytes # 0.7 10*3/uL (1.4-4.0); Lymphocytes % 13.9 % (21.3-54.2); Mean Corpuscular HGB Conc 29.9 GM/DL (32-36); Mean Corpuscular Volume 89.8 FL (87-102); Mean Platelet Volume 10.3 FL (9.6-12.0); Monocytes % 5.3 % (1.7-12.7); Neutrophils % 78.8 % (38.7-73.9); Platelet Count 385 T/CUMM (130-400); Red Blood Count 4.02 MC/CUMM (3.8-5.5); Red Cell Distribution Width 19.2 % (9.3-17.3); White Blood Count 4.7 T/CUMM (4-12)
[2020-12-25] MEDS ORDERED: hydrALAZINE 20 MG/1 ML VIAL IV STA (01:26)
[2020-12-25] MEDS ORDERED: hydrALAZINE 20 MG/1 ML VIAL ONE (01:26)
[2020-12-25 01:32] LABS: Albumin 2.3 G/DL (3.4-5.0); Bilirubin,Total 0.4 MG/DL (0.2-1.0); Calcium 8.8 MG/DL (8.5-10.1); Osmolality,Calculated 276.2 MOS/KG (273-304); Potassium 4.1 MMOL/L (3.5-5.1); Total Protein 8.6 G/DL (6.4-8.2)
[2020-12-25] MEDS ORDERED: MAGNESIUM SULF RIDER 2 GM in PREMIX 1 EACH IV STA (01:38)
[2020-12-25 01:44] LABS: Hypochromasia 2+; Platelet Estimate Normal; Polychromasia Few
[2020-12-25] MEDS ORDERED: ACETAMINOPHEN 325 MG TABLET PO PRN (03:49)
[2020-12-25] MEDS ORDERED: METOCLOPRAMIDE 10 MG/2 ML VIAL IV PRN (03:49)
[2020-12-25] MEDS ORDERED: ONDANSETRON 4 MG/2 ML VIAL IV PRN (03:49)
[2020-12-25] MEDS ORDERED: DEXTROSE 50% 25 GM/50 ML VIAL IV PRN (03:49)
[2020-12-25] MEDS ORDERED: hydrALAZINE 20 MG/1 ML VIAL IV PRN (03:49)
[2020-12-25] MEDS ORDERED: GLUCAGON 1 MG VIAL IM PRN (03:49)
[2020-12-25] MEDS: ENOXAPARIN 40 MG/0.4 ML SYRINGE SUBCUT SCH (05:00)
[2020-12-25] MEDS: ALBUTEROL/IPRATROPIUM 3 ML NEB RESP TX SCH ×5 (05:25→19:48)
[2020-12-25 06:07] LABS: Basophils % 0.4 % (0.0-0.8); Hematocrit 38.9 VOL% (35.7-47.0); Hemoglobin 11.3 GM/DL (12.0-16.0); Immature Granulocytes % 0.2 %; Immature Granulocytes Absolute 0.01 #; Lymphocytes # 0.7 10*3/uL (1.4-4.0); Lymphocytes % 12.7 % (21.3-54.2); Mean Corpuscular Volume 90.9 FL (87-102); Mean Platelet Volume 10.5 FL (9.6-12.0); Monocytes % 5.9 % (1.7-12.7); Neutrophils % 80.8 % (38.7-73.9); Platelet Count 404 T/CUMM (130-400); Red Blood Count 4.28 MC/CUMM (3.8-5.5); Red Cell Distribution Width 19.6 % (9.3-17.3); White Blood Count 5.1 T/CUMM (4-12)
[2020-12-25 06:18] LABS: Albumin 2.2 G/DL (3.4-5.0); Calcium 8.6 MG/DL (8.5-10.1); Osmolality,Calculated 282.8 MOS/KG (273-304); Risk Ratio 2.2; Total Protein 8.5 G/DL (6.4-8.2)
[2020-12-25] MEDS: INSULIN REGULAR 100 UNIT/ML SUBCUT SCH ×3 (07:12→17:27)
[2020-12-25] MEDS: MORPHINE 4 MG/1 ML VIAL IV PRN ×2 (07:13→21:09)
[2020-12-25] MEDS: PANTOPRAZOLE 40 MG VIAL IV SCH (09:27)
[2020-12-25] MEDS: FUROSEMIDE 40 MG/4 ML VIAL IV SCH ×2 (09:27→16:04)
[2020-12-25] MEDS: SODIUM CHLORIDE 0.9% 1,000 ML IV SCH (09:28)
[2020-12-25] MEDS: DOCUSATE SODIUM 100 MG CAPSULE PO SCH ×2 (09:28→21:10)
[2020-12-25] MEDS ORDERED: ONDANSETRON 4 MG TABLET PO PRN (12:25)
[2020-12-25] MEDS: FUROSEMIDE 20 MG TABLET PO SCH (14:19)
[2020-12-25] MEDS: hydrALAZINE 25 MG TABLET PO SCH ×2 (14:42→21:11)
[2020-12-25] MEDS: SPIRONOLACTONE 25 MG TABLET PO SCH (14:42)
[2020-12-25] MEDS: carvediloL 12.5 MG TABLET PO SCH (16:04)
[2020-12-25] MEDS ORDERED: INSULIN NPH/REGULAR 70/30 100 UNIT/ML SUBCUT SCH (19:00)
[2020-12-25] MEDS: FERROUS SULFATE 325 MG TABLET PO SCH (21:11)
[2020-12-26] MEDS: ALBUTEROL/IPRATROPIUM 3 ML NEB RESP TX SCH ×5 (00:06→14:00)
[2020-12-26] MEDS: INSULIN REGULAR 100 UNIT/ML SUBCUT SCH ×4 (01:02→17:36)
[2020-12-26] MEDS: ENOXAPARIN 40 MG/0.4 ML SYRINGE SUBCUT SCH (05:29)
[2020-12-26 07:28] LABS: Calcium 8.3 MG/DL (8.5-10.1); Osmolality,Calculated 278.5 MOS/KG (273-304); Potassium 3.4 MMOL/L (3.5-5.1)
[2020-12-26] MEDS ORDERED: ROSUVASTATIN 20 MG TABLET PO SCH (09:00)
[2020-12-26] MEDS ORDERED: INSULIN NPH/REGULAR 70/30 100 UNIT/ML SUBCUT SCH (09:00)
[2020-12-26] MEDS ORDERED: POTASSIUM CHLORIDE 20 MEQ TABLET PO SCH (09:00)
[2020-12-26] MEDS ORDERED: ASPIRIN EC 81 MG TABLET PO SCH (09:00)
[2020-12-26] MEDS: carvediloL 12.5 MG TABLET PO SCH ×2 (09:13→17:35)
[2020-12-26] MEDS: DOCUSATE SODIUM 100 MG CAPSULE PO SCH (09:13)
[2020-12-26] MEDS: SPIRONOLACTONE 25 MG TABLET PO SCH (09:13)
[2020-12-26] MEDS: hydrALAZINE 25 MG TABLET PO SCH ×2 (09:13→17:20)
[2020-12-26] MEDS: FUROSEMIDE 20 MG TABLET PO SCH (09:14)
[2020-12-26] MEDS: FERROUS SULFATE 325 MG TABLET PO SCH (09:14)
[2020-12-26] MEDS: FUROSEMIDE 40 MG/4 ML VIAL IV SCH ×2 (09:21→17:21)
[2020-12-26] MEDS: PANTOPRAZOLE 40 MG VIAL IV SCH (09:25)
[2020-12-26 12:49] LABS: Bilirubin,Urine Negative (Negative); Blood, Urine Small mg/dL (Negative); Glucose,Urine (UA) Negative (Negative); Hyaline Casts,Urine 1 /LPF (0-3); Ketones,Urine Negative (Negative); Nitrite,Urine Negative (Negative); Protein,Urine 100 MG/DL; RBC,Urine 4 /HPF (0-4); Squamous Epithelial Cell,Urine Occasional /HPF (0-10); Urine Appearance CLEAR (Clear); Urine Color Yellow (Yellow); Urine Specific Gravity 1.011 (1.001-1.035); Urine Urobilinogen < 2.0 EU/DL (0.2-1.0); WBC,Urine 1 /HPF (0-6)
[2020-12-26 17:07] VITALS: BP 159/85
[2020-12-26] MEDS: SODIUM CHLORIDE 0.9% 1,000 ML IV SCH (17:35)
== END 2020-12-26 19:25 | disposition home or self-care (01) ==
LOC: N.ED 23:59 → N.EDINP 12-25 02:22 → INTOOBSV 12-25 02:22 → N.EDINP 12-25 03:33 → N.TELEN 12-25 03:45
PROVIDERS: ADMIT Family Medicine; ATTEND Family Medicine

== ENCOUNTER 2020-12-28 20:31 | Observation (INO) ==
[2020-12-28] MEDS ORDERED: NITROGLYCERIN SL 0.4 MG TABLET SL STA (21:20)
[2020-12-28] MEDS ORDERED: ONDANSETRON 4 MG/2 ML VIAL IV ONE (21:20)
[2020-12-28 21:44] LABS: Albumin 2.4 G/DL (3.4-5.0); Bilirubin,Total 0.4 MG/DL (0.2-1.0); Calcium 8.9 MG/DL (8.5-10.1); Osmolality,Calculated 277.5 MOS/KG (273-304); Potassium 3.7 MMOL/L (3.5-5.1); Total Protein 8.7 G/DL (6.4-8.2)
[2020-12-28 21:56] LABS: Basophils % 0.8 % (0.0-0.8); Eosinophils # 0.1 10*3/uL (0.0-0.87); Eosinophils % 2.1 % (0.00-10.9); Hematocrit 37.4 VOL% (35.7-47.0); Hemoglobin 10.9 GM/DL (12.0-16.0); Immature Granulocytes % 0.2 %; Immature Granulocytes Absolute 0.01 #; Lymphocytes # 1.3 10*3/uL (1.4-4.0); Lymphocytes % 26.9 % (21.3-54.2); Mean Corpuscular HGB Conc 29.1 GM/DL (32-36); Mean Corpuscular Volume 90.3 FL (87-102); Mean Platelet Volume 10.1 FL (9.6-12.0); Monocytes % 9.6 % (1.7-12.7); Neutrophils % 60.4 % (38.7-73.9); Platelet Count 466 T/CUMM (130-400); Red Blood Count 4.14 MC/CUMM (3.8-5.5); Red Cell Distribution Width 19.1 % (9.3-17.3); White Blood Count 4.8 T/CUMM (4-12)
[2020-12-28] MEDS ORDERED: FUROSEMIDE 40 MG/4 ML VIAL IV STA (22:14)
[2020-12-28] MEDS ORDERED: ACETAMINOPHEN 500 MG TABLET ONE (22:29)
[2020-12-28] MEDS ORDERED: ACETAMINOPHEN 500 MG TABLET PO STA (22:45)
[2020-12-28 22:46] LABS: Bilirubin,Urine Negative (Negative); Blood, Urine Small mg/dL (Negative); Glucose,Urine (UA) Negative (Negative); Hyaline Casts,Urine 3 /LPF (0-3); Ketones,Urine Negative (Negative); Mucus,Urine Occasional /LPF (Occasional); Nitrite,Urine Negative (Negative); Protein,Urine >=500 MG/DL; RBC,Urine 13 /HPF (0-4); Squamous Epithelial Cell,Urine Occasional /HPF (0-10); Urine Appearance CLEAR (Clear); Urine Color Yellow (Yellow); Urine Specific Gravity 1.012 (1.001-1.035); Urine Urobilinogen < 2.0 EU/DL (0.2-1.0); WBC,Urine 7 /HPF (0-6)
[2020-12-28] MEDS ORDERED: METOCLOPRAMIDE 10 MG/2 ML VIAL IV STA (23:19)
[2020-12-28] MEDS ORDERED: LABETALOL 20 MG/4 ML SYRINGE IV STA (23:19)
[2020-12-28] MEDS ORDERED: MORPHINE 4 MG/1 ML VIAL IV STA (23:19)
[2020-12-28] MEDS ORDERED: ACETAMINOPHEN 325 MG TABLET PO PRN (23:21)
[2020-12-28] MEDS ORDERED: ONDANSETRON 4 MG/2 ML VIAL IV PRN (23:21)
[2020-12-28] MEDS ORDERED: METOCLOPRAMIDE 10 MG/2 ML VIAL IV PRN (23:21)
[2020-12-29] MEDS: cefTRIAXone 1,000 MG in SODIUM CHLORIDE 0.9% 100 ML IV SCH (00:20)
[2020-12-29 04:32] LABS: Albumin 2.2 G/DL (3.4-5.0); Bilirubin,Total 0.8 MG/DL (0.2-1.0); Calcium 8.8 MG/DL (8.5-10.1); Osmolality,Calculated 279.4 MOS/KG (273-304); Potassium 3.3 MMOL/L (3.5-5.1); Total Protein 7.6 G/DL (6.4-8.2)
[2020-12-29 04:36] LABS: Basophils # 0.1 10*3/uL (0.0-0.2); Basophils % 1.3 % (0.0-0.8); Eosinophils # 0.1 10*3/uL (0.0-0.87); Eosinophils % 1.7 % (0.00-10.9); Hematocrit 34.8 VOL% (35.7-47.0); Immature Granulocytes % 0.2 %; Immature Granulocytes Absolute 0.01 #; Lymphocytes # 1.7 10*3/uL (1.4-4.0); Lymphocytes % 35.2 % (21.3-54.2); Mean Corpuscular HGB Conc 28.7 GM/DL (32-36); Mean Corpuscular Volume 90.4 FL (87-102); Mean Platelet Volume 10.1 FL (9.6-12.0); Monocytes % 9.1 % (1.7-12.7); Neutrophils % 52.5 % (38.7-73.9); Platelet Count 395 T/CUMM (130-400); Red Blood Count 3.85 MC/CUMM (3.8-5.5); White Blood Count 4.8 T/CUMM (4-12)
[2020-12-29 06:36] LABS: Eosinophils 2 % (0-10); Lymphocytes 32 % (20-55); Segmented Neutrophils 57 % (50-85); Total Cells Counted 100
[2020-12-29 06:37] LABS: Macrocytosis Slight; Platelet Estimate Increased; Smudge Cells Few
[2020-12-29] MEDS ORDERED: INSULIN ASPART PROTAMINE/ASPART 70/30 100 UNIT/ML SUBCUT SCH (07:30)
[2020-12-29] MEDS ORDERED: hydrALAZINE 20 MG/1 ML VIAL IV PRN (08:03)
[2020-12-29] MEDS: ROSUVASTATIN 20 MG TABLET PO SCH (08:51)
[2020-12-29] MEDS: ASPIRIN EC 81 MG TABLET PO SCH (08:52)
[2020-12-29] MEDS: POTASSIUM CHLORIDE 20 MEQ TABLET PO SCH (08:52)
[2020-12-29] MEDS: FERROUS SULFATE 325 MG TABLET PO SCH ×2 (08:53→22:12)
[2020-12-29] MEDS: FUROSEMIDE 40 MG/4 ML VIAL IV SCH ×2 (08:54→15:39)
[2020-12-29] MEDS: PANTOPRAZOLE 40 MG TABLET PO SCH (08:59)
[2020-12-29] MEDS ORDERED: PANTOPRAZOLE 40 MG TABLET PO SCH (09:00)
[2020-12-29] MEDS ORDERED: carvediloL 12.5 MG TABLET PO SCH (09:00)
[2020-12-29] MEDS ORDERED: traMADol 50 MG TABLET PO PRN (11:41)
[2020-12-29] MEDS ORDERED: PROMETHAZINE 25 MG/1 ML VIAL IM PRN (16:28)
[2020-12-29] MEDS ORDERED: GLUCAGON 1 MG VIAL IM PRN (16:32)
[2020-12-29] MEDS ORDERED: POTASSIUM CHLORIDE 20 MEQ TABLET PO PRN (16:32)
[2020-12-29] MEDS ORDERED: MAGNESIUM SULF RIDER 2 GM/50 ML PREMIX IV PRN (16:32)
[2020-12-29] MEDS ORDERED: MAGNESIUM SULF RIDER 4 GM/100 ML PREMIX IV PRN (16:32)
[2020-12-29] MEDS ORDERED: DEXTROSE 50% 25 GM/50 ML VIAL IV PRN (16:32)
[2020-12-29] MEDS: carvediloL 25 MG TABLET PO SCH (17:20)
[2020-12-29] MEDS: INSULIN NPH/REGULAR 70/30 100 UNIT/ML SUBCUT SCH (17:21)
[2020-12-29] MEDS: LOSARTAN 25 MG TABLET PO SCH (22:12)
[2020-12-29] MEDS: INSULIN LISPRO 100 UNIT/ML SUBCUT SCH (22:21)
[2020-12-30] MEDS: cefTRIAXone 1,000 MG in SODIUM CHLORIDE 0.9% 100 ML IV SCH (00:21)
[2020-12-30 06:03] LABS: Basophils % 0.9 % (0.0-0.8); Eosinophils # 0.2 10*3/uL (0.0-0.87); Eosinophils % 4.1 % (0.00-10.9); Hematocrit 33.9 VOL% (35.7-47.0); Immature Granulocytes % 0.2 %; Immature Granulocytes Absolute 0.01 #; Lymphocytes # 1.5 10*3/uL (1.4-4.0); Lymphocytes % 33.5 % (21.3-54.2); Mean Corpuscular HGB Conc 29.5 GM/DL (32-36); Mean Corpuscular Volume 89.9 FL (87-102); Mean Platelet Volume 10.4 FL (9.6-12.0); Monocytes % 11.3 % (1.7-12.7); Platelet Count 373 T/CUMM (130-400); Red Blood Count 3.77 MC/CUMM (3.8-5.5); Red Cell Distribution Width 18.9 % (9.3-17.3); White Blood Count 4.4 T/CUMM (4-12)
[2020-12-30 06:31] LABS: Calcium 8.6 MG/DL (8.5-10.1); Osmolality,Calculated 279.3 MOS/KG (273-304); Potassium 3.5 MMOL/L (3.5-5.1)
[2020-12-30] MEDS: INSULIN LISPRO 100 UNIT/ML SUBCUT SCH ×3 (08:26→15:53)
[2020-12-30] MEDS ORDERED: SPIRONOLACTONE 25 MG TABLET PO SCH (09:00)
[2020-12-30 09:03] LABS: Band Neutrophils 2 % (0-10); Eosinophils 4 % (0-10); Lymphocytes 33 % (20-55); Platelet Estimate Normal; Reactive Lymphocytes Few; Segmented Neutrophils 46 % (50-85); Total Cells Counted 100
[2020-12-30] MEDS: ASPIRIN EC 81 MG TABLET PO SCH (09:03)
[2020-12-30] MEDS: carvediloL 25 MG TABLET PO SCH ×2 (09:03→16:21)
[2020-12-30] MEDS: POTASSIUM CHLORIDE 20 MEQ TABLET PO SCH (09:03)
[2020-12-30] MEDS: FERROUS SULFATE 325 MG TABLET PO SCH (09:04)
[2020-12-30] MEDS: PANTOPRAZOLE 40 MG TABLET PO SCH (09:04)
[2020-12-30] MEDS: ROSUVASTATIN 20 MG TABLET PO SCH (09:04)
[2020-12-30] MEDS: INSULIN NPH/REGULAR 70/30 100 UNIT/ML SUBCUT SCH (09:05)
[2020-12-30] MEDS: LOSARTAN 25 MG TABLET PO SCH (09:05)
[2020-12-30] MEDS: FUROSEMIDE 40 MG/4 ML VIAL IV SCH (09:06)
[2020-12-30] MEDS ORDERED: metOLazone 5 MG TABLET PO SCH (12:00)
[2020-12-30 15:52] VITALS: BP 172/89
[2020-12-30] MEDS ORDERED: FUROSEMIDE 40 MG TABLET PO SCH (16:00)
[2020-12-30] MEDS ORDERED: LOSARTAN 50 MG TABLET PO SCH (21:00)
== END 2020-12-30 17:14 | disposition home or self-care (01) ==
LOC: N.EDINP 20:31 → N.ED 20:31 → N.5E 12-29 01:42
PROVIDERS: ADMIT Family Medicine; ATTEND Family Medicine

== ENCOUNTER 2021-01-15 18:36 | Inpatient (IN) ==
[2021-01-15] MEDS ORDERED: PANTOPRAZOLE 40 MG VIAL IV STA (18:58)
[2021-01-15] MEDS ORDERED: ONDANSETRON 4 MG/2 ML VIAL IV STA (18:58)
[2021-01-15] MEDS ORDERED: SODIUM CHLORIDE 0.9% 500 ML IV STA (18:58)
[2021-01-15] MEDS ORDERED: HYDROmorphone 2 MG/1 ML VIAL IV ONE (19:07)
[2021-01-15 20:27] LABS: Albumin 2.4 G/DL (3.4-5.0); Basophils % 0.5 % (0.0-0.8); Bilirubin,Total 0.6 MG/DL (0.2-1.0); Calcium 8.5 MG/DL (8.5-10.1); Eosinophils % 0.2 % (0.00-10.9); Hematocrit 36.2 VOL% (35.7-47.0); Hemoglobin 10.9 GM/DL (12.0-16.0); Immature Granulocytes % 0.2 %; Immature Granulocytes Absolute 0.01 #; Lymphocytes # 0.6 10*3/uL (1.4-4.0); Lymphocytes % 12.6 % (21.3-54.2); Mean Corpuscular HGB Conc 30.1 GM/DL (32-36); Mean Corpuscular Volume 88.3 FL (87-102); Mean Platelet Volume 10.5 FL (9.6-12.0); Monocytes % 6.2 % (1.7-12.7); Neutrophils % 80.3 % (38.7-73.9); Osmolality,Calculated 283.7 MOS/KG (273-304); Platelet Count 319 T/CUMM (130-400); Potassium 3.7 MMOL/L (3.5-5.1); Total Protein 7.8 G/DL (6.4-8.2); White Blood Count 4.4 T/CUMM (4-12)
[2021-01-15] MEDS ORDERED: FUROSEMIDE 40 MG/4 ML VIAL IV STA (20:41)
[2021-01-15] MEDS ORDERED: hydrALAZINE 20 MG/1 ML VIAL IV STA (21:18)
[2021-01-15 21:46] LABS: Barbiturates Screen,Urine Negative (Negative); Benzodiazepines Screen,Urine Negative (Negative); Cannabinoid Screen,Urine Negative (Negative); Opiate Screen,Urine Positive (Negative); Phencyclidine Screen,Urine Negative (Negative)
[2021-01-15 21:56] LABS: Bilirubin,Urine Negative (Negative); Blood, Urine Negative (Negative); Glucose,Urine (UA) Negative (Negative); Hyaline Casts,Urine 34 /LPF (0-3); Ketones,Urine Negative (Negative); Mucus,Urine Occasional /LPF (Occasional); Nitrite,Urine Negative (Negative); Protein,Urine 100 MG/DL; RBC,Urine 3 /HPF (0-4); Squamous Epithelial Cell,Urine Many /HPF (0-10); Urine Appearance CLOUDY (Clear); Urine Color Yellow (Yellow); Urine Specific Gravity 1.015 (1.001-1.035); Urine Urobilinogen < 2.0 EU/DL (0.2-1.0)
[2021-01-15] MEDS ORDERED: LABETALOL 20 MG/4 ML SYRINGE IV STA (22:15)
[2021-01-15] MEDS ORDERED: DEXTROSE 50% 25 GM/50 ML VIAL IV PRN (23:05)
[2021-01-15] MEDS ORDERED: METOCLOPRAMIDE 10 MG/2 ML VIAL IV PRN (23:05)
[2021-01-15] MEDS ORDERED: ONDANSETRON ODT 4 MG TABLET PO PRN (23:05)
[2021-01-15] MEDS ORDERED: GLUCAGON 1 MG VIAL IM PRN (23:05)
[2021-01-15] MEDS ORDERED: ACETAMINOPHEN 325 MG TABLET PO PRN (23:05)
[2021-01-15] MEDS ORDERED: DICYCLOMINE 20 MG TABLET PO PRN (23:05)
[2021-01-15] MEDS: SODIUM CHLORIDE 0.9% 1,000 ML IV SCH (23:51)
[2021-01-15] MEDS ORDERED: PNEUMOCOCCAL VACCINE (23 VALENT) 0.5 ML VIAL IM ONE (23:58)
[2021-01-16] MEDS: INSULIN LISPRO 100 UNIT/ML SUBCUT SCH ×4 (00:33→18:01)
[2021-01-16] MEDS: ONDANSETRON 4 MG/2 ML VIAL IV PRN ×2 (00:38→10:35)
[2021-01-16] MEDS: HYDROmorphone 2 MG/1 ML VIAL IV PRN ×3 (00:47→19:03)
[2021-01-16 04:09] LABS: Hypochromasia 1+; Microcytosis 1+
[2021-01-16 04:10] LABS: Platelet Estimate Normal
[2021-01-16 06:33] LABS: Basophils % 0.7 % (0.0-0.8); Eosinophils % 0.2 % (0.00-10.9); Hematocrit 35.9 VOL% (35.7-47.0); Hemoglobin 10.7 GM/DL (12.0-16.0); Immature Granulocytes % 0.2 %; Immature Granulocytes Absolute 0.01 #; Lymphocytes # 1.1 10*3/uL (1.4-4.0); Lymphocytes % 23.9 % (21.3-54.2); Mean Corpuscular HGB Conc 29.8 GM/DL (32-36); Mean Corpuscular Volume 89.5 FL (87-102); Mean Platelet Volume 10.5 FL (9.6-12.0); Monocytes % 10.2 % (1.7-12.7); Neutrophils % 64.8 % (38.7-73.9); Platelet Count 355 T/CUMM (130-400); Red Blood Count 4.01 MC/CUMM (3.8-5.5); Red Cell Distribution Width 17.3 % (9.3-17.3); White Blood Count 4.5 T/CUMM (4-12)
[2021-01-16 07:38] LABS: Albumin 2.3 G/DL (3.4-5.0); Bilirubin,Total 0.8 MG/DL (0.2-1.0); Calcium 8.6 MG/DL (8.5-10.1); Osmolality,Calculated 280.5 MOS/KG (273-304); Potassium 3.2 MMOL/L (3.5-5.1); Total Protein 7.9 G/DL (6.4-8.2)
[2021-01-16] MEDS ORDERED: PANTOPRAZOLE 40 MG VIAL IV SCH (09:00)
[2021-01-16] MEDS: INSULIN NPH/REGULAR 70/30 100 UNIT/ML SUBCUT SCH ×2 (09:16→16:41)
[2021-01-16] MEDS: ENOXAPARIN 40 MG/0.4 ML SYRINGE SUBCUT SCH (09:17)
[2021-01-16] MEDS: carvediloL 25 MG TABLET PO SCH ×2 (09:17→16:40)
[2021-01-16] MEDS: LOSARTAN 50 MG TABLET PO SCH ×2 (09:17→20:26)
[2021-01-16] MEDS: FUROSEMIDE 40 MG TABLET PO SCH ×2 (09:17→16:40)
[2021-01-16] MEDS: ASPIRIN EC 81 MG TABLET PO SCH (09:17)
[2021-01-16] MEDS: DOCUSATE SODIUM 100 MG CAPSULE PO SCH ×2 (09:17→20:26)
[2021-01-16] MEDS: ROSUVASTATIN 20 MG TABLET PO SCH (10:36)
[2021-01-16] MEDS: POTASSIUM CHLORIDE 20 MEQ TABLET PO SCH (10:36)
[2021-01-16] MEDS: PANTOPRAZOLE 40 MG TABLET PO SCH (10:36)
[2021-01-16] MEDS: SPIRONOLACTONE 25 MG TABLET PO SCH (10:36)
[2021-01-16] MEDS: SODIUM CHLORIDE 0.9% 1,000 ML IV SCH (12:28)
[2021-01-16] MEDS ORDERED: SKIN HEALING OINT (AQUAPHOR) 50 GM TUBE TOP PRN (12:31)
[2021-01-16] MEDS: SILVER SULFADIAZINE 1% CREAM 25 GM TUBE TOP SCH (13:29)
[2021-01-17] MEDS: INSULIN LISPRO 100 UNIT/ML SUBCUT SCH ×4 (00:08→17:55)
[2021-01-17] MEDS: SODIUM CHLORIDE 0.9% 1,000 ML IV SCH ×2 (01:45→18:06)
[2021-01-17 06:11] LABS: Basophils % 0.5 % (0.0-0.8); Eosinophils # 0.1 10*3/uL (0.0-0.87); Eosinophils % 2.2 % (0.00-10.9); Hematocrit 33.8 VOL% (35.7-47.0); Hemoglobin 10.3 GM/DL (12.0-16.0); Lymphocytes # 1.6 10*3/uL (1.4-4.0); Lymphocytes % 39.3 % (21.3-54.2); Mean Corpuscular HGB Conc 30.5 GM/DL (32-36); Mean Corpuscular Volume 89.2 FL (87-102); Mean Platelet Volume 10.5 FL (9.6-12.0); Monocytes % 11.4 % (1.7-12.7); Neutrophils % 46.6 % (38.7-73.9); Platelet Count 315 T/CUMM (130-400); Red Blood Count 3.79 MC/CUMM (3.8-5.5); Red Cell Distribution Width 17.2 % (9.3-17.3); White Blood Count 4.1 T/CUMM (4-12)
[2021-01-17 06:49] LABS: Eosinophils 5 % (0-10); Hypochromasia 1+; Lymphocytes 33 % (20-55); Microcytosis 1+; Nucleated Red Blood Cells 1 (0-5); Platelet Estimate Adequate; Segmented Neutrophils 56 % (50-85); Total Cells Counted 100
[2021-01-17] MEDS: carvediloL 25 MG TABLET PO SCH ×2 (08:12→16:55)
[2021-01-17] MEDS: FUROSEMIDE 40 MG TABLET PO SCH ×2 (08:13→16:55)
[2021-01-17] MEDS: SPIRONOLACTONE 25 MG TABLET PO SCH (08:13)
[2021-01-17] MEDS: INSULIN NPH/REGULAR 70/30 100 UNIT/ML SUBCUT SCH ×2 (08:13→16:56)
[2021-01-17] MEDS: ASPIRIN EC 81 MG TABLET PO SCH (08:14)
[2021-01-17] MEDS: LOSARTAN 50 MG TABLET PO SCH ×2 (08:14→21:27)
[2021-01-17] MEDS: DOCUSATE SODIUM 100 MG CAPSULE PO SCH ×2 (08:14→21:26)
[2021-01-17] MEDS: POTASSIUM CHLORIDE 20 MEQ TABLET PO SCH (08:14)
[2021-01-17] MEDS: ENOXAPARIN 40 MG/0.4 ML SYRINGE SUBCUT SCH (08:14)
[2021-01-17] MEDS: PANTOPRAZOLE 40 MG TABLET PO SCH (08:14)
[2021-01-17] MEDS: ROSUVASTATIN 20 MG TABLET PO SCH (08:14)
[2021-01-17] MEDS: SILVER SULFADIAZINE 1% CREAM 25 GM TUBE TOP SCH (13:25)
[2021-01-17] MEDS ORDERED: AZITHROMYCIN INJ 500 MG in SODIUM CHLORIDE 0.9% 250 ML IV SCH (15:00)
[2021-01-18] MEDS: INSULIN LISPRO 100 UNIT/ML SUBCUT SCH ×3 (01:04→11:53)
[2021-01-18 05:34] LABS: Basophils % 0.5 % (0.0-0.8); Eosinophils # 0.1 10*3/uL (0.0-0.87); Eosinophils % 2.1 % (0.00-10.9); Hematocrit 33.3 VOL% (35.7-47.0); Hemoglobin 10.1 GM/DL (12.0-16.0); Immature Granulocytes % 0.5 %; Immature Granulocytes Absolute 0.02 #; Lymphocytes # 1.3 10*3/uL (1.4-4.0); Lymphocytes % 32.6 % (21.3-54.2); Mean Corpuscular HGB Conc 30.3 GM/DL (32-36); Mean Corpuscular Volume 89.5 FL (87-102); Mean Platelet Volume 10.2 FL (9.6-12.0); Monocytes % 10.4 % (1.7-12.7); Neutrophils % 53.9 % (38.7-73.9); Platelet Count 311 T/CUMM (130-400); Red Blood Count 3.72 MC/CUMM (3.8-5.5); Red Cell Distribution Width 17.5 % (9.3-17.3); White Blood Count 3.8 T/CUMM (4-12)
[2021-01-18 05:54] LABS: Calcium 8.3 MG/DL (8.5-10.1); Osmolality,Calculated 285.3 MOS/KG (273-304); Potassium 3.4 MMOL/L (3.5-5.1)
[2021-01-18 05:56] LABS: Lymphocytes 31 % (20-55); Segmented Neutrophils 62 % (50-85); Total Cells Counted 100
[2021-01-18 05:57] LABS: Platelet Estimate Normal
[2021-01-18] MEDS: ENOXAPARIN 40 MG/0.4 ML SYRINGE SUBCUT SCH (08:55)
[2021-01-18] MEDS: ROSUVASTATIN 20 MG TABLET PO SCH (08:56)
[2021-01-18] MEDS: POTASSIUM CHLORIDE 20 MEQ TABLET PO SCH (08:56)
[2021-01-18] MEDS: carvediloL 25 MG TABLET PO SCH (08:56)
[2021-01-18] MEDS: INSULIN NPH/REGULAR 70/30 100 UNIT/ML SUBCUT SCH (08:56)
[2021-01-18] MEDS: ASPIRIN EC 81 MG TABLET PO SCH (08:56)
[2021-01-18] MEDS: LOSARTAN 50 MG TABLET PO SCH (08:57)
[2021-01-18] MEDS: FUROSEMIDE 40 MG TABLET PO SCH (08:57)
[2021-01-18] MEDS: PANTOPRAZOLE 40 MG TABLET PO SCH (08:57)
[2021-01-18] MEDS: DOCUSATE SODIUM 100 MG CAPSULE PO SCH (08:57)
[2021-01-18] MEDS: SPIRONOLACTONE 25 MG TABLET PO SCH (08:57)
[2021-01-18] MEDS: SILVER SULFADIAZINE 1% CREAM 25 GM TUBE TOP SCH (09:05)
[2021-01-18 11:38] VITALS: BP 185/106
== END 2021-01-18 13:50 | disposition home or self-care (01) | DRG 74 ==
LOC: N.EDINP 18:36 → N.ED 18:36 → N.EDINP 22:50 → N.5E 23:04
PROVIDERS: ADMIT Family Medicine; ATTEND Family Medicine

== ENCOUNTER 2021-08-08 11:32 | Inpatient (IN) ==
[2021-08-08 12:23] LABS: Basophils % 0.2 % (0.0-0.8); Hematocrit 31.4 VOL% (35.7-47.0); Hemoglobin 9.5 GM/DL (12.0-16.0); Immature Granulocytes % 0.4 %; Immature Granulocytes Absolute 0.02 #; Lymphocytes # 0.5 10*3/uL (1.4-4.0); Lymphocytes % 10.2 % (21.3-54.2); Mean Corpuscular HGB Conc 30.3 GM/DL (32-36); Mean Corpuscular Volume 92.4 FL (87-102); Mean Platelet Volume 10.7 FL (9.6-12.0); Monocytes % 4.8 % (1.7-12.7); Neutrophils % 84.4 % (38.7-73.9); Platelet Count 292 T/CUMM (130-400); Red Cell Distribution Width 14.3 % (9.3-17.3); White Blood Count 4.6 T/CUMM (4-12)
[2021-08-08 12:48] LABS: Alanine Aminotransferase 15 U/L (13-56); Albumin 2.7 G/DL (3.4-5.0); Alkaline Phosphatase 73 U/L (45-117); Aspartate Amino Transferase 25 U/L (0-37); Blood Urea Nitrogen 19 MG/DL (7-18); Carbon Dioxide 28 MMOL/L (21-32); Estimated Glom Filtration Rate 75 ML/MIN; Glucose 462 MG/DL (74-106); Osmolality,Calculated 291.1 MOS/KG (273-304); Potassium 3.9 MMOL/L (3.5-5.1); Sodium 135 MMOL/L (136-145); Total Protein 9.8 G/DL (6.4-8.2)
[2021-08-08] MEDS ORDERED: SODIUM CHLORIDE 0.9% 1,000 ML IV STA (13:16)
[2021-08-08 13:43] LABS: Band Neutrophils 2 % (0-10); Lymphocytes 11 % (20-55); Segmented Neutrophils 84 % (50-85); Total Cells Counted 100
[2021-08-08 13:45] LABS: Hypochromasia 1+; Microcytosis Slight; Ovalocytes Few; Platelet Estimate Normal; Stomatocytes 1+
[2021-08-08 13:54] LABS: ABG Base Excess 1.3 MMOL/L (-2.5-2.5); ABG HCO3 25.5 MMOL/L (20-26); ABG Oxygen Saturation 95.9 % (95-100); ABG PCO2 46.4 MM HG (35-48); ABG PH 7.371 (7.35-7.45); ABG PO2 85.8 MM HG (80-95); ABG TCO2 24.7 MMOL/L (23-27)
[2021-08-08] MEDS ORDERED: PIPERACILLIN/TAZOBACTAM 3,375 MG in SODIUM CHLORIDE 0.9% 100 ML IV STA (14:40)
[2021-08-08] MEDS ORDERED: methylPREDNISolone SOD SUC 125 MG/2 ML VIAL IV STA (15:11)
[2021-08-08 17:49] LABS: Bilirubin,Urine Negative (Negative); Blood, Urine Moderate mg/dL (Negative); Glucose,Urine (UA) >=500 mg/dL (Negative); Hyaline Casts,Urine 10 /LPF (0-3); Ketones,Urine 5 mg/dL (Negative); Mucus,Urine Occasional /LPF (Occasional); Nitrite,Urine Negative (Negative); Protein,Urine 100 MG/DL; RBC,Urine 10 /HPF (0-4); Squamous Epithelial Cell,Urine Occasional /HPF (0-10); Urine Appearance CLEAR (Clear); Urine Color Yellow (Yellow); Urine Specific Gravity 1.025 (1.001-1.035); Urine Urobilinogen < 2.0 EU/DL (0.2-1.0)
[2021-08-08 18:58] LABS: Barbiturates Screen,Urine Negative (Negative); Benzodiazepines Screen,Urine Negative (Negative); Cannabinoid Screen,Urine Negative (Negative); Opiate Screen,Urine Negative (Negative); Phencyclidine Screen,Urine Negative (Negative)
[2021-08-08] MEDS ORDERED: hydrALAZINE 20 MG/1 ML VIAL IV ONE (19:22)
[2021-08-08] MEDS ORDERED: traMADol 50 MG TABLET PO PRN (21:05)
[2021-08-08] MEDS ORDERED: GLUCAGON 1 MG VIAL IM PRN (21:05)
[2021-08-08] MEDS ORDERED: MAGNESIUM SULF RIDER 4 GM/100 ML PREMIX IV PRN (21:05)
[2021-08-08] MEDS ORDERED: ONDANSETRON 4 MG/2 ML VIAL IV PRN (21:05)
[2021-08-08] MEDS ORDERED: DEXTROSE 50% 25 GM/50 ML VIAL IV PRN (21:05)
[2021-08-08] MEDS ORDERED: MAGNESIUM SULF RIDER 2 GM/50 ML PREMIX IV PRN (21:05)
[2021-08-08] MEDS: INSULIN REGULAR 100 UNIT/ML SUBCUT SCH (21:14)
[2021-08-08] MEDS: carvediloL 25 MG TABLET PO SCH (21:33)
[2021-08-08] MEDS: DOCUSATE SODIUM 100 MG CAPSULE PO SCH (21:33)
[2021-08-08] MEDS: methylPREDNISolone SOD SUC 40 MG/1 ML VIAL IV SCH (21:36)
[2021-08-08] MEDS: FUROSEMIDE 40 MG/4 ML VIAL IV SCH (21:36)
[2021-08-08] MEDS: cloNIDine 0.1 MG TABLET PO SCH (21:39)
[2021-08-08] MEDS: PIPERACILLIN/TAZOBACTAM 3,375 MG in SODIUM CHLORIDE 0.9% 100 ML IV SCH (21:49)
[2021-08-08] MEDS ORDERED: INSULIN REGULAR 100 UNIT/ML IV ONE ×2 (23:26→23:49)
[2021-08-08] MEDS ORDERED: INSULIN REGULAR 100 UNIT/ML SUBCUT STA (23:56)
[2021-08-09] MEDS: ALBUTEROL/IPRATROPIUM 3 ML NEB RESP TX SCH ×6 (00:12→21:46)
[2021-08-09] MEDS ORDERED: INFLUENZA VIRUS VACCINE 0.5 ML SYRINGE IM ONE (00:54)
[2021-08-09] MEDS: PIPERACILLIN/TAZOBACTAM 3,375 MG in SODIUM CHLORIDE 0.9% 100 ML IV SCH (07:39)
[2021-08-09 08:15] LABS: ABG Base Excess 0.5 MMOL/L (-2.5-2.5); ABG HCO3 24.7 MMOL/L (20-26); ABG Oxygen Saturation 83.9 % (95-100); ABG PCO2 43.2 MM HG (35-48); ABG PH 7.382 (7.35-7.45); ABG PO2 53.1 MM HG (80-95); ABG TCO2 23.7 MMOL/L (23-27); Allen Test Positive; Pt O2 Delivery Device Room Air
[2021-08-09 08:51] LABS: Hematocrit 31.2 VOL% (35.7-47.0); Hemoglobin 9.4 GM/DL (12.0-16.0); Immature Granulocytes % 0.5 %; Immature Granulocytes Absolute 0.02 #; Lymphocytes # 0.3 10*3/uL (1.4-4.0); Lymphocytes % 8.5 % (21.3-54.2); Mean Corpuscular HGB Conc 30.1 GM/DL (32-36); Mean Corpuscular Volume 91.8 FL (87-102); Mean Platelet Volume 10.9 FL (9.6-12.0); Monocytes % 5.4 % (1.7-12.7); Neutrophils % 85.6 % (38.7-73.9); Platelet Count 267 T/CUMM (130-400); Red Cell Distribution Width 14.4 % (9.3-17.3); White Blood Count 3.9 T/CUMM (4-12)
[2021-08-09] MEDS ORDERED: SPIRONOLACTONE 25 MG TABLET PO SCH (09:00)
[2021-08-09 09:13] LABS: Albumin 2.1 G/DL (3.4-5.0); Bilirubin,Total 0.5 MG/DL (0.20-1.00); Calcium 8.1 MG/DL (8.5-10.1); Osmolality,Calculated 308.9 MOS/KG (273-304); Potassium 4.2 MMOL/L (3.5-5.1)
[2021-08-09 09:15] LABS: Band Neutrophils 4 % (0-10); Hypochromasia 1+; Lymphocytes 6 % (20-55); Microcytosis 1+; Platelet Estimate Adequate; Segmented Neutrophils 81 % (50-85); Total Cells Counted 100
[2021-08-09] MEDS: FUROSEMIDE 40 MG/4 ML VIAL IV SCH (09:17)
[2021-08-09] MEDS: DOCUSATE SODIUM 100 MG CAPSULE PO SCH ×2 (09:17→21:15)
[2021-08-09] MEDS: ASPIRIN EC 81 MG TABLET PO SCH (09:17)
[2021-08-09] MEDS: cloNIDine 0.1 MG TABLET PO SCH ×3 (09:17→21:15)
[2021-08-09] MEDS: carvediloL 25 MG TABLET PO SCH ×2 (09:17→21:15)
[2021-08-09] MEDS: PANTOPRAZOLE 40 MG TABLET PO SCH (09:18)
[2021-08-09] MEDS: POTASSIUM CHLORIDE 20 MEQ TABLET PO SCH (09:18)
[2021-08-09] MEDS ORDERED: INSULIN REGULAR DRIP 100 ML IV PRN (09:24)
[2021-08-09] MEDS ORDERED: AZITHROMYCIN 250 MG TABLET PO ONE (09:25)
[2021-08-09] MEDS ORDERED: DEXTROSE 50% 25 GM/50 ML SYRINGE IV PRN ×2 (09:29)
[2021-08-09] MEDS: INSULIN REGULAR 100 UNIT/ML SUBCUT SCH ×2 (09:57→12:36)
[2021-08-09] MEDS: SODIUM CHLORIDE 0.9% 1,000 ML IV SCH (11:00)
[2021-08-09] MEDS: cefTRIAXone 1,000 MG in SODIUM CHLORIDE 0.9% 100 ML IV SCH (11:25)
[2021-08-09] MEDS: methylPREDNISolone SOD SUC 40 MG/1 ML VIAL IV SCH (11:36)
[2021-08-09] MEDS: hydrALAZINE 20 MG/1 ML VIAL IV PRN (11:44)
[2021-08-09] MEDS: ENOXAPARIN 30 MG/0.3 ML SYRINGE SUBCUT SCH (12:35)
[2021-08-09] MEDS ORDERED: INSULIN REGULAR 100 UNIT/ML IV ONE (13:30)
[2021-08-09] MEDS ORDERED: SODIUM CHLORIDE 0.9% 1,000 ML IV ONE (13:30)
[2021-08-09] MEDS: BENZONATATE 100 MG CAPSULE PO SCH (21:15)
[2021-08-09] MEDS: INSULIN NPH/REGULAR 70/30 100 UNIT/ML SUBCUT SCH (21:15)
[2021-08-09] MEDS: INSULIN LISPRO 100 UNIT/ML SUBCUT SCH (21:16)
[2021-08-10] MEDS: ALBUTEROL/IPRATROPIUM 3 ML NEB RESP TX SCH ×7 (01:04→23:30)
[2021-08-10] MEDS: SODIUM CHLORIDE 0.9% 1,000 ML IV SCH ×2 (02:42→15:46)
[2021-08-10] MEDS: hydrALAZINE 20 MG/1 ML VIAL IV PRN (04:03)
[2021-08-10] MEDS: ACETAMINOPHEN 325 MG TABLET PO PRN ×3 (04:03→17:30)
[2021-08-10] MEDS ORDERED: IBUPROFEN 400 MG TABLET PO ONE (05:16)
[2021-08-10 05:44] LABS: Basophils % 0.3 % (0.0-0.8); Hematocrit 28.3 VOL% (35.7-47.0); Hemoglobin 8.8 GM/DL (12.0-16.0); Immature Granulocytes % 1.3 %; Immature Granulocytes Absolute 0.05 #; Lymphocytes # 0.9 10*3/uL (1.4-4.0); Lymphocytes % 22.9 % (21.3-54.2); Mean Corpuscular HGB Conc 31.1 GM/DL (32-36); Mean Corpuscular Volume 90.4 FL (87-102); Mean Platelet Volume 10.8 FL (9.6-12.0); Monocytes % 7.3 % (1.7-12.7); Neutrophils % 68.2 % (38.7-73.9); Platelet Count 235 T/CUMM (130-400); Red Blood Count 3.13 MC/CUMM (3.8-5.5); Red Cell Distribution Width 14.5 % (9.3-17.3); White Blood Count 3.9 T/CUMM (4-12)
[2021-08-10 06:09] LABS: Albumin 1.8 G/DL (3.4-5.0); Bilirubin,Total 0.4 MG/DL (0.20-1.00); Calcium 7.5 MG/DL (8.5-10.1); Potassium 3.8 MMOL/L (3.5-5.1); Total Protein 7.2 G/DL (6.4-8.2)
[2021-08-10 06:40] LABS: Band Neutrophils 5 % (0-10); Hypochromasia 1+; Lymphocytes 22 % (20-55); Ovalocytes Few; Platelet Estimate Normal; Segmented Neutrophils 62 % (50-85); Total Cells Counted 100
[2021-08-10] MEDS: cefTRIAXone 1,000 MG in SODIUM CHLORIDE 0.9% 100 ML IV SCH (09:03)
[2021-08-10] MEDS: INSULIN NPH/REGULAR 70/30 100 UNIT/ML SUBCUT SCH ×2 (09:03→18:06)
[2021-08-10] MEDS: INSULIN LISPRO 100 UNIT/ML SUBCUT SCH ×4 (09:03→20:28)
[2021-08-10] MEDS: BENZONATATE 100 MG CAPSULE PO SCH ×3 (09:04→20:26)
[2021-08-10] MEDS: AZITHROMYCIN 250 MG TABLET PO SCH (09:04)
[2021-08-10] MEDS: ASPIRIN EC 81 MG TABLET PO SCH (09:04)
[2021-08-10] MEDS: DOCUSATE SODIUM 100 MG CAPSULE PO SCH ×2 (09:05→20:27)
[2021-08-10] MEDS: carvediloL 25 MG TABLET PO SCH ×2 (09:05→20:27)
[2021-08-10] MEDS: PANTOPRAZOLE 40 MG TABLET PO SCH (09:05)
[2021-08-10] MEDS: POTASSIUM CHLORIDE 20 MEQ TABLET PO SCH (09:05)
[2021-08-10] MEDS: cloNIDine 0.1 MG TABLET PO SCH ×3 (09:05→20:27)
[2021-08-10] MEDS: ENOXAPARIN 30 MG/0.3 ML SYRINGE SUBCUT SCH (11:16)
[2021-08-10] MEDS ORDERED: ZALEPLON 5 MG CAPSULE PO PRN (11:24)
[2021-08-10] MEDS: AZELASTINE NASAL 137 MCG/SPRAY 30 ML BOTTLE BOTH NARES SCH ×2 (12:42→20:28)
[2021-08-11] MEDS: ALBUTEROL/IPRATROPIUM 3 ML NEB RESP TX SCH ×8 (03:00→23:00)
[2021-08-11] MEDS: ENOXAPARIN 30 MG/0.3 ML SYRINGE SUBCUT SCH (13:15)
[2021-08-11] MEDS: cefTRIAXone 1,000 MG in SODIUM CHLORIDE 0.9% 100 ML IV SCH (13:15)
[2021-08-11] MEDS: SODIUM CHLORIDE 0.9% 1,000 ML IV SCH ×2 (13:15→18:05)
[2021-08-11] MEDS: PANTOPRAZOLE 40 MG TABLET PO SCH (13:16)
[2021-08-11] MEDS: cloNIDine 0.1 MG TABLET PO SCH ×3 (13:16→20:07)
[2021-08-11] MEDS: AZITHROMYCIN 250 MG TABLET PO SCH (13:16)
[2021-08-11] MEDS: BENZONATATE 100 MG CAPSULE PO SCH ×3 (13:16→20:07)
[2021-08-11] MEDS: DOCUSATE SODIUM 100 MG CAPSULE PO SCH ×2 (13:16→20:07)
[2021-08-11] MEDS: AZELASTINE NASAL 137 MCG/SPRAY 30 ML BOTTLE BOTH NARES SCH ×2 (13:16→20:07)
[2021-08-11] MEDS: POTASSIUM CHLORIDE 20 MEQ TABLET PO SCH (13:16)
[2021-08-11] MEDS: carvediloL 25 MG TABLET PO SCH ×2 (13:16→20:07)
[2021-08-11] MEDS: ASPIRIN EC 81 MG TABLET PO SCH (13:17)
[2021-08-11] MEDS: INSULIN NPH/REGULAR 70/30 100 UNIT/ML SUBCUT SCH ×2 (13:18→18:05)
[2021-08-11] MEDS: INSULIN LISPRO 100 UNIT/ML SUBCUT SCH ×3 (13:18→20:10)
[2021-08-11 13:43] LABS: Albumin 1.7 G/DL (3.4-5.0); Bilirubin,Total 0.6 MG/DL (0.20-1.00); Calcium 7.7 MG/DL (8.5-10.1); Total Protein 6.9 G/DL (6.4-8.2)
[2021-08-11 13:44] LABS: Osmolality,Calculated 293.5 MOS/KG (273-304); Potassium 3.6 MMOL/L (3.5-5.1)
[2021-08-11 14:22] LABS: Hematocrit 28.3 VOL% (35.7-47.0); Hemoglobin 8.7 GM/DL (12.0-16.0); Red Blood Count 3.13 MC/CUMM (3.8-5.5); White Blood Count 3.7 T/CUMM (4-12)
[2021-08-11 14:23] LABS: Basophils % 0.3 % (0.0-0.8); Eosinophils # 0.1 10*3/uL (0.0-0.87); Eosinophils % 1.6 % (0.00-10.9); Immature Granulocytes Absolute 0.11 #; Lymphocytes # 1.9 10*3/uL (1.4-4.0); Lymphocytes % 50.7 % (21.3-54.2); Mean Corpuscular HGB Conc 30.7 GM/DL (32-36); Mean Corpuscular Volume 90.4 FL (87-102); Mean Platelet Volume 10.6 FL (9.6-12.0); Monocytes % 4.1 % (1.7-12.7); Neutrophils % 40.3 % (38.7-73.9); Platelet Count 207 T/CUMM (130-400); Red Cell Distribution Width 14.7 % (9.3-17.3)
[2021-08-11 14:24] LABS: Anisocytosis 1+; Band Neutrophils 26 % (0-10); Eosinophils 2 % (0-10); Lymphocytes 45 % (20-55); Macrocytosis Slight; Segmented Neutrophils 23 % (50-85); Total Cells Counted 100
[2021-08-11 14:25] LABS: Platelet Estimate Normal; Smudge Cells 1+
[2021-08-11] MEDS: ZALEPLON 5 MG CAPSULE PO PRN (20:07)
[2021-08-12] MEDS: cloNIDine 0.1 MG TABLET PO PRN (00:26)
[2021-08-12] MEDS: ALBUTEROL/IPRATROPIUM 3 ML NEB RESP TX SCH ×7 (00:53→23:45)
[2021-08-12] MEDS: hydrALAZINE 20 MG/1 ML VIAL IV PRN (04:10)
[2021-08-12] MEDS: PANTOPRAZOLE 40 MG TABLET PO SCH (08:18)
[2021-08-12] MEDS: AZITHROMYCIN 250 MG TABLET PO SCH (08:18)
[2021-08-12] MEDS: ASPIRIN EC 81 MG TABLET PO SCH (08:18)
[2021-08-12] MEDS: carvediloL 25 MG TABLET PO SCH ×3 (08:18→20:20)
[2021-08-12] MEDS: cloNIDine 0.1 MG TABLET PO SCH ×3 (08:18→20:20)
[2021-08-12] MEDS: INSULIN NPH/REGULAR 70/30 100 UNIT/ML SUBCUT SCH ×2 (08:18→19:15)
[2021-08-12] MEDS: POTASSIUM CHLORIDE 20 MEQ TABLET PO SCH (08:18)
[2021-08-12] MEDS: BENZONATATE 100 MG CAPSULE PO SCH ×3 (08:18→20:21)
[2021-08-12] MEDS: DOCUSATE SODIUM 100 MG CAPSULE PO SCH ×2 (08:18→20:21)
[2021-08-12] MEDS: AZELASTINE NASAL 137 MCG/SPRAY 30 ML BOTTLE BOTH NARES SCH ×2 (08:19→20:21)
[2021-08-12] MEDS: INSULIN LISPRO 100 UNIT/ML SUBCUT SCH ×4 (08:19→20:20)
[2021-08-12 08:29] LABS: Basophils % 0.2 % (0.0-0.8); Eosinophils # 0.2 10*3/uL (0.0-0.87); Eosinophils % 3.3 % (0.00-10.9); Hematocrit 27.9 VOL% (35.7-47.0); Hemoglobin 8.5 GM/DL (12.0-16.0); Immature Granulocytes % 1.1 %; Immature Granulocytes Absolute 0.05 #; Lymphocytes # 1.9 10*3/uL (1.4-4.0); Lymphocytes % 41.2 % (21.3-54.2); Mean Corpuscular HGB Conc 30.5 GM/DL (32-36); Mean Corpuscular Volume 91.2 FL (87-102); Mean Platelet Volume 10.5 FL (9.6-12.0); Neutrophils % 49.2 % (38.7-73.9); Platelet Count 233 T/CUMM (130-400); Red Blood Count 3.06 MC/CUMM (3.8-5.5); White Blood Count 4.6 T/CUMM (4-12)
[2021-08-12] MEDS: cefTRIAXone 1,000 MG in SODIUM CHLORIDE 0.9% 100 ML IV SCH (08:40)
[2021-08-12] MEDS: ENOXAPARIN 40 MG/0.4 ML SYRINGE SUBCUT SCH (08:46)
[2021-08-12 08:49] LABS: Alanine Aminotransferase 10 U/L (13-56); Albumin 1.7 G/DL (3.4-5.0); Alkaline Phosphatase 44 U/L (45-117); Aspartate Amino Transferase 23 U/L (0-37); Bilirubin,Total < 0.39 MG/DL (0.20-1.00); Blood Urea Nitrogen 16 MG/DL (7-18); Calcium 7.9 MG/DL (8.5-10.1); Carbon Dioxide 23 MMOL/L (21-32); Estimated Glom Filtration Rate 107 ML/MIN; Glucose 192 MG/DL (74-106); Osmolality,Calculated 288.1 MOS/KG (273-304); Sodium 142 MMOL/L (136-145); Total Protein 6.9 G/DL (6.4-8.2)
[2021-08-12 08:51] LABS: Eosinophils 1 % (0-10); Lymphocytes 33 % (20-55); Segmented Neutrophils 62 % (50-85); Total Cells Counted 100
[2021-08-12 08:52] LABS: Hypochromasia 1+; Microcytosis 1+; Platelet Estimate Adequate
[2021-08-12] MEDS ORDERED: FUROSEMIDE 40 MG TABLET PO SCH (16:00)
[2021-08-12] MEDS: FUROSEMIDE 40 MG/4 ML VIAL IV SCH (16:03)
[2021-08-12] MEDS: ZALEPLON 5 MG CAPSULE PO PRN (20:20)
[2021-08-13] MEDS: ALBUTEROL/IPRATROPIUM 3 ML NEB RESP TX SCH ×5 (03:52→20:15)
[2021-08-13] MEDS: hydrALAZINE 20 MG/1 ML VIAL IV PRN (03:55)
[2021-08-13 06:03] LABS: Basophils % 0.3 % (0.0-0.8); Eosinophils # 0.2 10*3/uL (0.0-0.87); Eosinophils % 5.9 % (0.00-10.9); Hematocrit 27.8 VOL% (35.7-47.0); Hemoglobin 8.7 GM/DL (12.0-16.0); Immature Granulocytes % 0.8 %; Immature Granulocytes Absolute 0.03 #; Lymphocytes # 1.4 10*3/uL (1.4-4.0); Lymphocytes % 38.3 % (21.3-54.2); Mean Corpuscular HGB Conc 31.3 GM/DL (32-36); Mean Platelet Volume 10.6 FL (9.6-12.0); Monocytes % 6.1 % (1.7-12.7); Neutrophils % 48.6 % (38.7-73.9); Platelet Count 286 T/CUMM (130-400); Red Blood Count 3.09 MC/CUMM (3.8-5.5); Red Cell Distribution Width 15.3 % (9.3-17.3); White Blood Count 3.8 T/CUMM (4-12)
[2021-08-13 06:19] LABS: Albumin 1.7 G/DL (3.4-5.0); Bilirubin,Total 0.9 MG/DL (0.20-1.00); Calcium 8.3 MG/DL (8.5-10.1); Osmolality,Calculated 283.5 MOS/KG (273-304); Potassium 3.7 MMOL/L (3.5-5.1)
[2021-08-13 06:32] LABS: Band Neutrophils 1 % (0-10); Eosinophils 3 % (0-10); Hypochromasia 1+; Lymphocytes 37 % (20-55); Microcytosis 1+; Platelet Estimate Adequate; Segmented Neutrophils 57 % (50-85); Total Cells Counted 100
[2021-08-13 07:19] LABS: HIV Antigen/Antibody Result Nonreactive (Nonreactive)
[2021-08-13] MEDS: INSULIN LISPRO 100 UNIT/ML SUBCUT SCH ×4 (09:19→21:11)
[2021-08-13] MEDS: INSULIN NPH/REGULAR 70/30 100 UNIT/ML SUBCUT SCH ×2 (09:19→21:11)
[2021-08-13] MEDS: FUROSEMIDE 40 MG/4 ML VIAL IV SCH ×2 (09:20→16:38)
[2021-08-13] MEDS: ENOXAPARIN 40 MG/0.4 ML SYRINGE SUBCUT SCH (09:20)
[2021-08-13] MEDS: BENZONATATE 100 MG CAPSULE PO SCH ×3 (09:20→21:01)
[2021-08-13] MEDS: DOCUSATE SODIUM 100 MG CAPSULE PO SCH ×2 (09:23→21:01)
[2021-08-13] MEDS: POTASSIUM CHLORIDE 20 MEQ TABLET PO SCH (09:23)
[2021-08-13] MEDS: ASPIRIN EC 81 MG TABLET PO SCH (09:23)
[2021-08-13] MEDS: carvediloL 25 MG TABLET PO SCH ×3 (09:23→16:38)
[2021-08-13] MEDS: cloNIDine 0.1 MG TABLET PO SCH ×3 (09:23→21:01)
[2021-08-13] MEDS: PANTOPRAZOLE 40 MG TABLET PO SCH (09:23)
[2021-08-13] MEDS: AZELASTINE NASAL 137 MCG/SPRAY 30 ML BOTTLE BOTH NARES SCH ×2 (09:24→21:02)
[2021-08-13] MEDS: cefTRIAXone 1,000 MG in SODIUM CHLORIDE 0.9% 100 ML IV SCH (09:27)
[2021-08-13] MEDS: ENALAPRIL 5 MG TABLET PO SCH (11:49)
[2021-08-13] MEDS: cloNIDine 0.1 MG TABLET PO PRN (13:21)
[2021-08-13] MEDS: ZALEPLON 5 MG CAPSULE PO PRN (21:05)
[2021-08-14] MEDS: ALBUTEROL/IPRATROPIUM 3 ML NEB RESP TX SCH ×3 (00:10→07:05)
[2021-08-14] MEDS: cloNIDine 0.1 MG TABLET PO PRN ×2 (00:30→03:47)
[2021-08-14] MEDS: DOCUSATE SODIUM 100 MG CAPSULE PO SCH (08:04)
[2021-08-14] MEDS: BENZONATATE 100 MG CAPSULE PO SCH (08:04)
[2021-08-14] MEDS: PANTOPRAZOLE 40 MG TABLET PO SCH (08:04)
[2021-08-14] MEDS: cloNIDine 0.1 MG TABLET PO SCH (08:04)
[2021-08-14] MEDS: POTASSIUM CHLORIDE 20 MEQ TABLET PO SCH (08:04)
[2021-08-14] MEDS: ENALAPRIL 5 MG TABLET PO SCH (08:04)
[2021-08-14] MEDS: ASPIRIN EC 81 MG TABLET PO SCH (08:04)
[2021-08-14] MEDS: carvediloL 25 MG TABLET PO SCH (08:04)
[2021-08-14] MEDS: ENOXAPARIN 40 MG/0.4 ML SYRINGE SUBCUT SCH (08:05)
[2021-08-14] MEDS: INSULIN NPH/REGULAR 70/30 100 UNIT/ML SUBCUT SCH (08:05)
[2021-08-14] MEDS: AZELASTINE NASAL 137 MCG/SPRAY 30 ML BOTTLE BOTH NARES SCH (08:05)
[2021-08-14] MEDS: INSULIN LISPRO 100 UNIT/ML SUBCUT SCH ×2 (08:53→12:06)
[2021-08-14] MEDS: cefTRIAXone 1,000 MG in SODIUM CHLORIDE 0.9% 100 ML IV SCH (11:38)
[2021-08-14] MEDS: FUROSEMIDE 40 MG/4 ML VIAL IV SCH (11:38)
[2021-08-14 11:47] VITALS: BP 192/97
[2021-08-16 13:00] LABS: QuantiFERON-Tb Gold Pl Indeterminate (Negative); TB2 Ag Minus Result 0 IU/mL
== END 2021-08-14 12:53 | disposition home or self-care (01) | DRG 193 ==
LOC: N.ED 11:32 → N.EDINP 15:12 → N.3E 19:08 → N.CC 08-09 08:25 → N.5E 08-09 18:00
PROVIDERS: ADMIT Family Medicine; ATTEND Family Medicine

== ENCOUNTER 2021-11-08 11:34 | Inpatient (IN) ==
[2021-11-08] MEDS ORDERED: ONDANSETRON 4 MG/2 ML VIAL IV STA (11:57)
[2021-11-08] MEDS ORDERED: SODIUM CHLORIDE 0.9% 1,000 ML IV STA (11:57)
[2021-11-08 12:55] LABS: Albumin 2.4 G/DL (3.4-5.0); Bilirubin,Total 0.6 MG/DL (0.20-1.00); Calcium 8.5 MG/DL (8.5-10.1); Potassium 3.7 MMOL/L (3.5-5.1); Total Protein 8.6 G/DL (6.4-8.2)
[2021-11-08 13:00] LABS: Basophils % 0.8 % (0.0-0.8); Eosinophils # 0.1 10*3/uL (0.0-0.87); Eosinophils % 1.5 % (0.00-10.9); Hematocrit 31.1 VOL% (35.7-47.0); Immature Granulocytes % 0.4 %; Immature Granulocytes Absolute 0.02 #; Lymphocytes # 0.9 10*3/uL (1.4-4.0); Lymphocytes % 16.2 % (21.3-54.2); Mean Corpuscular HGB Conc 28.9 GM/DL (32-36); Mean Corpuscular Volume 85.9 FL (87-102); Mean Platelet Volume 10.6 FL (9.6-12.0); Monocytes % 5.8 % (1.7-12.7); Neutrophils % 75.3 % (38.7-73.9); Platelet Count 471 T/CUMM (130-400); Red Blood Count 3.62 MC/CUMM (3.8-5.5); Red Cell Distribution Width 15.9 % (9.3-17.3); White Blood Count 5.3 T/CUMM (4-12)
[2021-11-08 13:15] LABS: Eosinophils 1 % (0-10); Hypochromia 2+; Lymphocytes 23 % (20-55); Segmented Neutrophils 71 % (50-85); Total Cells Counted 100
[2021-11-08 13:16] LABS: Anisocytosis 2+; Ovalocytes Slight; Platelet Estimate Increased; Polychromasia Few; Stomatocytes Slight; Target Cells Few
[2021-11-08] MEDS ORDERED: PROMETHAZINE 25 MG/1 ML VIAL ONE (13:39)
[2021-11-08] MEDS ORDERED: ACETAMINOPHEN 325 MG TABLET PO PRN (14:50)
[2021-11-08] MEDS ORDERED: hydrALAZINE 20 MG/1 ML VIAL IV STA (15:10)
[2021-11-08] MEDS ORDERED: PROMETHAZINE INJ 25 MG in SODIUM CHLORIDE 0.9% 50 ML IV STA (15:25)
[2021-11-08] MEDS ORDERED: cloNIDine 0.1 MG TABLET ONE (16:49)
[2021-11-08] MEDS: SODIUM CHLORIDE 0.9% 1,000 ML IV SCH (17:11)
[2021-11-08] MEDS: ENOXAPARIN 30 MG/0.3 ML SYRINGE SUBCUT SCH (17:11)
[2021-11-08] MEDS ORDERED: cloNIDine 0.1 MG TABLET PO STA ×2 (17:28→18:42)
[2021-11-08] MEDS ORDERED: PANTOPRAZOLE 40 MG VIAL IV ONE (17:43)
[2021-11-08] MEDS ORDERED: PANTOPRAZOLE 40 MG VIAL IV STA (17:47)
[2021-11-08] MEDS ORDERED: FUROSEMIDE 40 MG TABLET PO STA (18:41)
[2021-11-08] MEDS ORDERED: PROMETHAZINE 25 MG/1 ML VIAL IM PRN (19:08)
[2021-11-08] MEDS ORDERED: ALBUTEROL 2.5 MG/3 ML NEB RESP TX PRN (19:18)
[2021-11-08] MEDS: cloNIDine 0.1 MG TABLET PO SCH (20:10)
[2021-11-08] MEDS: carvediloL 25 MG TABLET PO SCH (20:23)
[2021-11-08 20:25] LABS: Bacteria,Urine Occasional /HPF (Few); Mucus,Urine Occasional /LPF (Occasional); RBC,Urine 5 /HPF (0-4); Squamous Epithelial Cell,Urine Occasional /HPF (0-10)
[2021-11-08 20:26] LABS: Urine Appearance Slightly Hazy (Clear); Urine Color Yellow (Yellow)
[2021-11-08 20:27] LABS: Bilirubin,Urine Negative (Negative); Blood, Urine Trace mg/dL (Negative); Glucose,Urine (UA) Negative (Negative); Ketones,Urine Negative (Negative); Nitrite,Urine Negative (Negative); Protein,Urine >=300 MG/DL
[2021-11-08] MEDS ORDERED: carvediloL 25 MG TABLET PO SCH (21:00)
[2021-11-08] MEDS: METOPROLOL TARTRATE 5 MG/5 ML VIAL IV SCH (22:10)
[2021-11-08] MEDS ORDERED: niCARdipine INJ 25 MG in SODIUM CHLORIDE 0.9% 240 ML IV PRN (23:40)
[2021-11-09] MEDS ORDERED: SILVER SULFADIAZINE 1% CREAM 25 GM TUBE TOP ONE (00:18)
[2021-11-09] MEDS ORDERED: niCARdipine 25 MG/10 ML VIAL IV ONE (00:37)
[2021-11-09] MEDS: INSULIN NPH/REGULAR 70/30 100 UNIT/ML SUBCUT SCH ×3 (00:49→20:37)
[2021-11-09] MEDS: DOCUSATE SODIUM 100 MG CAPSULE PO SCH ×3 (00:50→20:53)
[2021-11-09 04:36] LABS: Basophils % 0.2 % (0.0-0.8); Hematocrit 29.6 VOL% (35.7-47.0); Hemoglobin 8.6 GM/DL (12.0-16.0); Immature Granulocytes % 0.5 %; Immature Granulocytes Absolute 0.03 #; Lymphocytes # 0.6 10*3/uL (1.4-4.0); Lymphocytes % 9.2 % (21.3-54.2); Mean Corpuscular HGB Conc 29.1 GM/DL (32-36); Mean Corpuscular Volume 85.1 FL (87-102); Mean Platelet Volume 10.5 FL (9.6-12.0); Monocytes % 4.8 % (1.7-12.7); Neutrophils % 85.3 % (38.7-73.9); Platelet Count 434 T/CUMM (130-400); Red Blood Count 3.48 MC/CUMM (3.8-5.5); Red Cell Distribution Width 16.3 % (9.3-17.3); White Blood Count 6.4 T/CUMM (4-12)
[2021-11-09] MEDS: METOPROLOL TARTRATE 5 MG/5 ML VIAL IV SCH ×4 (04:37→20:53)
[2021-11-09 05:05] LABS: Albumin 1.7 G/DL (3.4-5.0); Bilirubin,Total 0.8 MG/DL (0.20-1.00); Calcium 8.3 MG/DL (8.5-10.1); Osmolality,Calculated 273.2 MOS/KG (273-304); Potassium 3.1 MMOL/L (3.5-5.1); Total Protein 7.1 G/DL (6.4-8.2)
[2021-11-09] MEDS: SODIUM CHLORIDE 0.9% 1,000 ML IV SCH (05:06)
[2021-11-09] MEDS ORDERED: GLUCAGON 1 MG VIAL IM PRN (07:55)
[2021-11-09] MEDS ORDERED: DEXTROSE 10% 250 ML BAG IV PRN (07:55)
[2021-11-09] MEDS: POTASSIUM CHLORIDE 20 MEQ TABLET PO SCH ×4 (09:01→16:15)
[2021-11-09] MEDS: carvediloL 25 MG TABLET PO SCH ×2 (09:01→18:41)
[2021-11-09] MEDS: FUROSEMIDE 40 MG TABLET PO SCH ×2 (09:02→16:15)
[2021-11-09] MEDS: PANTOPRAZOLE 40 MG TABLET PO SCH (09:02)
[2021-11-09] MEDS: cloNIDine 0.1 MG TABLET PO SCH ×2 (09:02→20:53)
[2021-11-09] MEDS: INSULIN LISPRO 100 UNIT/ML SUBCUT SCH ×3 (12:38→20:37)
[2021-11-09] MEDS: ENOXAPARIN 30 MG/0.3 ML SYRINGE SUBCUT SCH (16:14)
[2021-11-10] MEDS: METOPROLOL TARTRATE 5 MG/5 ML VIAL IV SCH ×4 (05:02→18:29)
[2021-11-10 07:54] LABS: Basophils % 0.4 % (0.0-0.8); Eosinophils # 0.1 10*3/uL (0.0-0.87); Eosinophils % 2.1 % (0.00-10.9); Hematocrit 28.2 VOL% (35.7-47.0); Hemoglobin 8.2 GM/DL (12.0-16.0); Immature Granulocytes % 0.4 %; Immature Granulocytes Absolute 0.02 #; Lymphocytes # 1.1 10*3/uL (1.4-4.0); Lymphocytes % 22.9 % (21.3-54.2); Mean Corpuscular HGB Conc 29.1 GM/DL (32-36); Mean Corpuscular Volume 85.5 FL (87-102); Mean Platelet Volume 10.4 FL (9.6-12.0); Monocytes % 11.3 % (1.7-12.7); Neutrophils % 62.9 % (38.7-73.9); Platelet Count 409 T/CUMM (130-400); Red Cell Distribution Width 16.2 % (9.3-17.3); White Blood Count 4.7 T/CUMM (4-12)
[2021-11-10] MEDS: INSULIN LISPRO 100 UNIT/ML SUBCUT SCH ×4 (08:03→20:32)
[2021-11-10] MEDS: INSULIN NPH/REGULAR 70/30 100 UNIT/ML SUBCUT SCH ×2 (08:04→19:39)
[2021-11-10] MEDS: POTASSIUM CHLORIDE 20 MEQ TABLET PO SCH (08:05)
[2021-11-10] MEDS: cloNIDine 0.1 MG TABLET PO SCH ×2 (08:05→20:32)
[2021-11-10] MEDS: FUROSEMIDE 40 MG TABLET PO SCH ×2 (08:05→16:40)
[2021-11-10] MEDS: carvediloL 25 MG TABLET PO SCH ×2 (08:05→16:40)
[2021-11-10] MEDS: PANTOPRAZOLE 40 MG TABLET PO SCH (08:05)
[2021-11-10] MEDS: DOCUSATE SODIUM 100 MG CAPSULE PO SCH ×2 (08:05→20:10)
[2021-11-10 08:19] LABS: Eosinophils 6 % (0-10); Hypochromia 1+; Lymphocytes 23 % (20-55); Microcytosis 1+; Platelet Estimate Adequate; Segmented Neutrophils 64 % (50-85); Total Cells Counted 100
[2021-11-10 08:26] LABS: Calcium 7.8 MG/DL (8.5-10.1); Osmolality,Calculated 288.7 MOS/KG (273-304)
[2021-11-10] MEDS: ENOXAPARIN 30 MG/0.3 ML SYRINGE SUBCUT SCH (14:01)
[2021-11-11] MEDS: METOPROLOL TARTRATE 5 MG/5 ML VIAL IV SCH ×5 (00:49→23:44)
[2021-11-11 04:45] LABS: Basophils % 0.4 % (0.0-0.8); Eosinophils # 0.2 10*3/uL (0.0-0.87); Eosinophils % 3.2 % (0.00-10.9); Hemoglobin 8.1 GM/DL (12.0-16.0); Immature Granulocytes % 0.4 %; Immature Granulocytes Absolute 0.02 #; Lymphocytes # 1.3 10*3/uL (1.4-4.0); Lymphocytes % 23.8 % (21.3-54.2); Mean Corpuscular HGB Conc 28.9 GM/DL (32-36); Mean Corpuscular Volume 84.3 FL (87-102); Mean Platelet Volume 9.9 FL (9.6-12.0); Monocytes % 11.4 % (1.7-12.7); Neutrophils % 60.8 % (38.7-73.9); Platelet Count 436 T/CUMM (130-400); Red Blood Count 3.32 MC/CUMM (3.8-5.5); Red Cell Distribution Width 16.2 % (9.3-17.3); White Blood Count 5.6 T/CUMM (4-12)
[2021-11-11 05:04] LABS: Alanine Aminotransferase 14 U/L (13-56); Albumin 1.8 G/DL (3.4-5.0); Alkaline Phosphatase 43 U/L (45-117); Aspartate Amino Transferase 20 U/L (0-37); Bilirubin,Total < 0.39 MG/DL (0.20-1.00); Blood Urea Nitrogen 18 MG/DL (7-18); Calcium 7.9 MG/DL (8.5-10.1); Carbon Dioxide 28 MMOL/L (21-32); Estimated Glom Filtration Rate 98 ML/MIN; Glucose 190 MG/DL (74-106); Osmolality,Calculated 283.5 MOS/KG (273-304); Potassium 4.1 MMOL/L (3.5-5.1); Sodium 139 MMOL/L (136-145); Total Protein 7.1 G/DL (6.4-8.2)
[2021-11-11] MEDS: INSULIN NPH/REGULAR 70/30 100 UNIT/ML SUBCUT SCH ×2 (07:11→20:42)
[2021-11-11] MEDS: INSULIN LISPRO 100 UNIT/ML SUBCUT SCH ×4 (07:11→20:42)
[2021-11-11] MEDS ORDERED: INFLUENZA VIRUS VACCINE 0.5 ML SYRINGE IM ONE (08:00)
[2021-11-11] MEDS ORDERED: PNEUMOCOCCAL VACCINE (23 VALENT) 0.5 ML VIAL IM ONE (08:00)
[2021-11-11] MEDS: PANTOPRAZOLE 40 MG TABLET PO SCH (08:01)
[2021-11-11] MEDS: FUROSEMIDE 40 MG TABLET PO SCH ×2 (08:02→17:09)
[2021-11-11] MEDS: carvediloL 25 MG TABLET PO SCH ×2 (08:02→17:10)
[2021-11-11] MEDS: DOCUSATE SODIUM 100 MG CAPSULE PO SCH ×2 (08:02→20:48)
[2021-11-11] MEDS: POTASSIUM CHLORIDE 20 MEQ TABLET PO SCH (08:02)
[2021-11-11] MEDS: cloNIDine 0.1 MG TABLET PO SCH ×2 (08:02→20:47)
[2021-11-11] MEDS: SPIRONOLACTONE 25 MG TABLET PO SCH (14:04)
[2021-11-11] MEDS: ENOXAPARIN 30 MG/0.3 ML SYRINGE SUBCUT SCH (14:04)
[2021-11-11] MEDS: LOSARTAN 50 MG TABLET PO SCH (14:04)
[2021-11-11] MEDS: SILVER SULFADIAZINE 1% CREAM 25 GM TUBE TOP SCH (17:09)
[2021-11-11] MEDS: ZALEPLON 5 MG CAPSULE PO PRN (21:45)
[2021-11-12 03:47] LABS: Basophils % 0.6 % (0.0-0.8); Eosinophils # 0.2 10*3/uL (0.0-0.87); Eosinophils % 3.3 % (0.00-10.9); Hematocrit 28.6 VOL% (35.7-47.0); Hemoglobin 8.2 GM/DL (12.0-16.0); Immature Granulocytes % 0.2 %; Immature Granulocytes Absolute 0.01 #; Lymphocytes # 1.6 10*3/uL (1.4-4.0); Mean Corpuscular HGB Conc 28.7 GM/DL (32-36); Mean Corpuscular Volume 84.4 FL (87-102); Mean Platelet Volume 10.1 FL (9.6-12.0); Monocytes % 9.2 % (1.7-12.7); Neutrophils % 55.7 % (38.7-73.9); Platelet Count 448 T/CUMM (130-400); Red Blood Count 3.39 MC/CUMM (3.8-5.5); Red Cell Distribution Width 16.4 % (9.3-17.3); White Blood Count 5.1 T/CUMM (4-12)
[2021-11-12 04:06] LABS: Albumin 1.9 G/DL (3.4-5.0); Bilirubin,Total 0.4 MG/DL (0.20-1.00); Calcium 8.2 MG/DL (8.5-10.1); Osmolality,Calculated 276.1 MOS/KG (273-304); Potassium 3.7 MMOL/L (3.5-5.1); Total Protein 7.3 G/DL (6.4-8.2)
[2021-11-12 04:11] LABS: Eosinophils 4 % (0-10); Hypochromia 1+; Lymphocytes 25 % (20-55); Microcytosis 1+; Segmented Neutrophils 58 % (50-85); Total Cells Counted 100
[2021-11-12 04:12] LABS: Platelet Estimate Increased; Polychromasia Slight; Target Cells Slight
[2021-11-12] MEDS: METOPROLOL TARTRATE 5 MG/5 ML VIAL IV SCH ×3 (05:52→17:39)
[2021-11-12] MEDS: INSULIN LISPRO 100 UNIT/ML SUBCUT SCH ×4 (07:00→20:42)
[2021-11-12] MEDS: INSULIN NPH/REGULAR 70/30 100 UNIT/ML SUBCUT SCH ×2 (08:21→20:16)
[2021-11-12] MEDS: POTASSIUM CHLORIDE 20 MEQ TABLET PO SCH (08:22)
[2021-11-12] MEDS: carvediloL 25 MG TABLET PO SCH ×2 (08:22→17:40)
[2021-11-12] MEDS: DOCUSATE SODIUM 100 MG CAPSULE PO SCH ×3 (08:22→20:54)
[2021-11-12] MEDS: PANTOPRAZOLE 40 MG TABLET PO SCH (08:22)
[2021-11-12] MEDS: FUROSEMIDE 40 MG TABLET PO SCH ×2 (08:22→15:22)
[2021-11-12] MEDS: SPIRONOLACTONE 25 MG TABLET PO SCH (08:22)
[2021-11-12] MEDS: LOSARTAN 50 MG TABLET PO SCH (08:22)
[2021-11-12] MEDS: SILVER SULFADIAZINE 1% CREAM 25 GM TUBE TOP SCH (08:24)
[2021-11-12 08:35] VITALS: BP 162/96
[2021-11-12] MEDS: ENOXAPARIN 30 MG/0.3 ML SYRINGE SUBCUT SCH (15:21)
[2021-11-12] MEDS ORDERED: LOSARTAN 50 MG TABLET PO ONE (18:11)
[2021-11-12] MEDS: ZALEPLON 5 MG CAPSULE PO PRN (20:41)
[2021-11-13] MEDS: METOPROLOL TARTRATE 5 MG/5 ML VIAL IV SCH ×2 (01:10→06:11)
[2021-11-13] MEDS ORDERED: ZALEPLON 5 MG CAPSULE PO ONE (02:17)
[2021-11-13] MEDS ORDERED: diphenhydrAMINE CAP 25 MG CAPSULE PO PRN (04:05)
[2021-11-13 05:23] LABS: Bilirubin,Total 0.4 MG/DL (0.20-1.00); Osmolality,Calculated 274.1 MOS/KG (273-304); Potassium 3.6 MMOL/L (3.5-5.1)
[2021-11-13 05:51] LABS: Basophils % 0.6 % (0.0-0.8); Eosinophils # 0.2 10*3/uL (0.0-0.87); Eosinophils % 3.3 % (0.00-10.9); Hematocrit 30.1 VOL% (35.7-47.0); Immature Granulocytes % 0.3 %; Immature Granulocytes Absolute 0.02 #; Lymphocytes # 1.5 10*3/uL (1.4-4.0); Lymphocytes % 22.9 % (21.3-54.2); Mean Corpuscular HGB Conc 28.9 GM/DL (32-36); Mean Corpuscular Volume 83.4 FL (87-102); Mean Platelet Volume 9.9 FL (9.6-12.0); Monocytes % 8.4 % (1.7-12.7); Neutrophils % 64.5 % (38.7-73.9); Platelet Count 503 T/CUMM (130-400); Red Blood Count 3.61 MC/CUMM (3.8-5.5); Red Cell Distribution Width 16.1 % (9.3-17.3); White Blood Count 6.3 T/CUMM (4-12)
[2021-11-13 05:53] LABS: Hemoglobin 8.7 GM/DL (12.0-16.0)
[2021-11-13 06:00] LABS: Anisocytosis 1+; Band Neutrophils 4 % (0-10); Eosinophils 3 % (0-10); Hypochromia Slight; Lymphocytes 22 % (20-55); Platelet Estimate Increased; Segmented Neutrophils 62 % (50-85); Total Cells Counted 100
[2021-11-13 06:01] LABS: Polychromasia Slight; Target Cells Few
[2021-11-13] MEDS: INSULIN LISPRO 100 UNIT/ML SUBCUT SCH (08:44)
[2021-11-13] MEDS: PANTOPRAZOLE 40 MG TABLET PO SCH (08:45)
[2021-11-13] MEDS: FUROSEMIDE 40 MG TABLET PO SCH (08:45)
[2021-11-13] MEDS: POTASSIUM CHLORIDE 20 MEQ TABLET PO SCH (08:46)
[2021-11-13] MEDS: SPIRONOLACTONE 25 MG TABLET PO SCH (08:46)
[2021-11-13] MEDS: DOCUSATE SODIUM 100 MG CAPSULE PO SCH (08:46)
[2021-11-13] MEDS: carvediloL 25 MG TABLET PO SCH (08:46)
[2021-11-13] MEDS ORDERED: LOSARTAN 50 MG TABLET PO SCH (09:00)
[2021-11-13] MEDS ORDERED: PNEUMOCOCCAL VACCINE (23 VALENT) 0.5 ML VIAL IM ONE ×2 (10:30→11:00)
[2021-11-13] MEDS: INSULIN NPH/REGULAR 70/30 100 UNIT/ML SUBCUT SCH (10:58)
[2021-11-13] MEDS: SILVER SULFADIAZINE 1% CREAM 25 GM TUBE TOP SCH (10:59)
== END 2021-11-13 10:26 | disposition home or self-care (01) | DRG 74 ==
LOC: N.ED 11:34 → N.EDINP 14:50 → SUATTDRO 14:50 → N.TELEN 20:03 → N.CC 11-09 04:06
PROVIDERS: ADMIT Family Medicine; ATTEND Family Medicine

== ENCOUNTER 2022-06-26 11:21 | Observation (INO) ==
[2022-06-26] MEDS ORDERED: hydrALAZINE 20 MG/1 ML VIAL IV STA (11:57)
[2022-06-26 12:45] LABS: Albumin 2.5 G/DL (3.4-5.0); Bilirubin,Total 0.8 MG/DL (0.20-1.00); Calcium 8.6 MG/DL (8.5-10.1); Osmolality,Calculated 284.7 MOS/KG (273-304); Potassium 3.9 MMOL/L (3.5-5.1); Total Protein 8.6 G/DL (6.4-8.2)
[2022-06-26 12:48] LABS: Basophils % 0.7 % (0.0-0.8); Eosinophils # 0.1 10*3/uL (0.0-0.87); Eosinophils % 0.9 % (0.00-10.9); Immature Granulocytes % 0.5 %; Immature Granulocytes Absolute 0.03 #; Lymphocytes # 1.1 10*3/uL (1.4-4.0); Lymphocytes % 20.1 % (21.3-54.2); Mean Corpuscular Volume 74.1 FL (87-102); Mean Platelet Volume 10.3 FL (9.6-12.0); Monocytes # 0.3 10*3/uL (0.11-0.8); Monocytes % 6.1 % (1.7-12.7); NRBC # 0.02 10*3/uL; Neutrophils % 71.7 % (38.7-73.9); Platelet Count 385 T/CUMM (130-400); Red Blood Count 2.97 MC/CUMM (3.8-5.5); Red Cell Distribution Width 18.9 % (9.3-17.3); White Blood Count 5.6 T/CUMM (4-12)
[2022-06-26 12:51] LABS: Hemoglobin 5.5 GM/DL (12.0-16.0)
[2022-06-26 13:08] LABS: Anisocytosis 1+; Hypochromia 1+; Macrocytosis 1+; Microcytosis 1+; Platelet Estimate Adequate; Polychromasia Few; Target Cells Few
[2022-06-26] MEDS ORDERED: ACETAMINOPHEN 325 MG TABLET PO PRN (13:37)
[2022-06-26] MEDS ORDERED: ONDANSETRON 4 MG/2 ML VIAL IV PRN (13:37)
[2022-06-26] MEDS ORDERED: SODIUM CHLORIDE 0.9% 1,000 ML IV PRN (13:38)
[2022-06-26] MEDS ORDERED: DEXTROSE 10% 250 ML BAG IV PRN (15:45)
[2022-06-26] MEDS ORDERED: DICYCLOMINE 20 MG TABLET PO PRN (15:45)
[2022-06-26] MEDS ORDERED: GLUCAGON 1 MG VIAL IM PRN (15:45)
[2022-06-26] MEDS ORDERED: POTASSIUM CHLORIDE 20 MEQ TABLET PO PRN (15:46)
[2022-06-26] MEDS ORDERED: MAGNESIUM SULF RIDER 4 GM/100 ML PREMIX IV PRN (15:46)
[2022-06-26] MEDS ORDERED: MAGNESIUM SULF RIDER 2 GM/50 ML PREMIX IV PRN (15:46)
[2022-06-26] MEDS ORDERED: POTASSIUM CHLORIDE RIDER 10 MEQ/100 ML PREMIX IV PRN (15:46)
[2022-06-26] MEDS ORDERED: ONDANSETRON ODT 4 MG TABLET PO PRN (15:52)
[2022-06-26] MEDS ORDERED: cloNIDine 0.2 MG/24 HR PATCH TRANSDERM SCH (16:00)
[2022-06-26] MEDS ORDERED: INFLUENZA VIRUS VACCINE 0.5 ML SYRINGE IM ONE (16:52)
[2022-06-26] MEDS: FUROSEMIDE 40 MG TABLET PO SCH (17:10)
[2022-06-26] MEDS: INSULIN LISPRO 100 UNIT/ML SUBCUT SCH ×2 (17:39→21:06)
[2022-06-26] MEDS ORDERED: METOPROLOL TARTRATE 5 MG/5 ML VIAL IV ONE (17:49)
[2022-06-26] MEDS: DOCUSATE SODIUM 100 MG CAPSULE PO SCH ×2 (21:03→21:06)
[2022-06-26] MEDS: INSULIN NPH/REGULAR 70/30 100 UNIT/ML SUBCUT SCH (21:11)
[2022-06-26] MEDS ORDERED: hydrALAZINE 20 MG/1 ML VIAL IV ONE (23:00)
[2022-06-26] MEDS ORDERED: diphenhydrAMINE CAP 25 MG CAPSULE PO ONE (23:00)
[2022-06-27 02:15] LABS: Hematocrit 24.4 VOL% (35.7-47.0); Hemoglobin 6.8 GM/DL (12.0-16.0)
[2022-06-27 02:32] LABS: Albumin 2.2 G/DL (3.4-5.0); Bilirubin,Total 1.2 MG/DL (0.20-1.00); Calcium 8.2 MG/DL (8.5-10.1); Osmolality,Calculated 289.4 MOS/KG (273-304); Total Protein 7.9 G/DL (6.4-8.2)
[2022-06-27 05:32] LABS: Basophils % 0.6 % (0.0-0.8); Eosinophils # 0.1 10*3/uL (0.0-0.87); Eosinophils % 1.8 % (0.00-10.9); Hematocrit 23.8 VOL% (35.7-47.0); Hemoglobin 6.6 GM/DL (12.0-16.0); Immature Granulocytes % 0.4 %; Immature Granulocytes Absolute 0.02 #; Lymphocytes # 1.7 10*3/uL (1.4-4.0); Lymphocytes % 34.8 % (21.3-54.2); Mean Corpuscular HGB Conc 27.7 GM/DL (32-36); Mean Corpuscular Volume 71.9 FL (87-102); Mean Platelet Volume 10.4 FL (9.6-12.0); Monocytes # 0.4 10*3/uL (0.11-0.8); Monocytes % 8.7 % (1.7-12.7); NRBC # 0.02 10*3/uL; Neutrophils % 53.7 % (38.7-73.9); Platelet Count 338 T/CUMM (130-400); Red Blood Count 3.31 MC/CUMM (3.8-5.5); Red Cell Distribution Width 18.5 % (9.3-17.3)
[2022-06-27 06:14] LABS: Anisocytosis 1+; Hypochromia 2+; Microcytosis 1+; Polychromasia Slight
[2022-06-27] MEDS: DOCUSATE SODIUM 100 MG CAPSULE PO SCH ×2 (08:59→21:24)
[2022-06-27] MEDS: INSULIN LISPRO 100 UNIT/ML SUBCUT SCH ×4 (08:59→21:25)
[2022-06-27] MEDS: INSULIN NPH/REGULAR 70/30 100 UNIT/ML SUBCUT SCH ×2 (08:59→21:26)
[2022-06-27] MEDS: LOSARTAN 50 MG TABLET PO SCH (08:59)
[2022-06-27] MEDS: carvediloL 25 MG TABLET PO SCH ×2 (08:59→16:08)
[2022-06-27] MEDS: FUROSEMIDE 40 MG TABLET PO SCH ×2 (08:59→15:37)
[2022-06-27] MEDS ORDERED: PANTOPRAZOLE 40 MG TABLET PO SCH (09:00)
[2022-06-27] MEDS ORDERED: ASPIRIN EC 81 MG TABLET PO SCH (09:00)
[2022-06-27] MEDS ORDERED: LOSARTAN 25 MG TABLET PO SCH (09:00)
[2022-06-27] MEDS: PANTOPRAZOLE 40 MG TABLET PO SCH ×2 (09:00→21:21)
[2022-06-27 09:42] LABS: % Iron Saturation 17.2 % (18-50); Ferritin 7.8 ng/mL (8-252)
[2022-06-27] MEDS ORDERED: SODIUM CHLORIDE 0.9% 1,000 ML IV PRN (11:23)
[2022-06-27] MEDS: DAPAGLIFLOZIN 10 MG TABLET PO SCH (11:29)
[2022-06-28 05:40] LABS: Calcium 8.6 MG/DL (8.5-10.1); Osmolality,Calculated 283.3 MOS/KG (273-304); Potassium 3.6 MMOL/L (3.5-5.1)
[2022-06-28 05:50] LABS: Basophils # 0.1 10*3/uL (0.0-0.2); Basophils % 0.7 % (0.0-0.8); Eosinophils # 0.2 10*3/uL (0.0-0.87); Eosinophils % 2.5 % (0.00-10.9); Hemoglobin 8.1 GM/DL (12.0-16.0); Immature Granulocytes % 0.6 %; Immature Granulocytes Absolute 0.04 #; Lymphocytes # 1.4 10*3/uL (1.4-4.0); Mean Corpuscular HGB Conc 28.9 GM/DL (32-36); Mean Corpuscular Volume 74.1 FL (87-102); Monocytes # 0.4 10*3/uL (0.11-0.8); Monocytes % 5.9 % (1.7-12.7); NRBC # 0.02 10*3/uL; Neutrophils % 70.3 % (38.7-73.9); Platelet Count 322 T/CUMM (130-400); Red Blood Count 3.78 MC/CUMM (3.8-5.5); Red Cell Distribution Width 19.3 % (9.3-17.3); White Blood Count 7.1 T/CUMM (4-12)
[2022-06-28 06:06] LABS: Anisocytosis 1+; Hypochromia 1+; Platelet Estimate Normal
[2022-06-28] MEDS: INSULIN LISPRO 100 UNIT/ML SUBCUT SCH ×4 (08:00→20:42)
[2022-06-28] MEDS: FUROSEMIDE 40 MG TABLET PO SCH ×2 (10:16→15:49)
[2022-06-28] MEDS: carvediloL 25 MG TABLET PO SCH ×2 (10:17→17:15)
[2022-06-28] MEDS: PANTOPRAZOLE 40 MG TABLET PO SCH ×2 (10:17→22:03)
[2022-06-28] MEDS: LOSARTAN 50 MG TABLET PO SCH (10:17)
[2022-06-28] MEDS: DAPAGLIFLOZIN 10 MG TABLET PO SCH (10:17)
[2022-06-28] MEDS: INSULIN NPH/REGULAR 70/30 100 UNIT/ML SUBCUT SCH ×2 (10:18→20:43)
[2022-06-28] MEDS: DOCUSATE SODIUM 100 MG CAPSULE PO SCH ×2 (10:23→22:04)
[2022-06-28] MEDS: hydrALAZINE 20 MG/1 ML VIAL IV PRN (13:43)
[2022-06-28] MEDS ORDERED: diphenhydrAMINE CAP 25 MG CAPSULE PO PRN (21:32)
[2022-06-29] MEDS: hydrALAZINE 20 MG/1 ML VIAL IV PRN (01:54)
[2022-06-29 05:42] LABS: Calcium 8.6 MG/DL (8.5-10.1); Osmolality,Calculated 282.5 MOS/KG (273-304); Potassium 3.4 MMOL/L (3.5-5.1)
[2022-06-29 05:54] LABS: Basophils % 0.4 % (0.0-0.8); Eosinophils # 0.1 10*3/uL (0.0-0.87); Eosinophils % 1.8 % (0.00-10.9); Hematocrit 29.8 VOL% (35.7-47.0); Hemoglobin 8.6 GM/DL (12.0-16.0); Immature Granulocytes % 0.4 %; Immature Granulocytes Absolute 0.02 #; Lymphocytes # 1.4 10*3/uL (1.4-4.0); Lymphocytes % 24.6 % (21.3-54.2); Mean Corpuscular HGB Conc 28.9 GM/DL (32-36); Mean Corpuscular Volume 74.3 FL (87-102); Mean Platelet Volume 10.6 FL (9.6-12.0); Monocytes # 0.5 10*3/uL (0.11-0.8); Monocytes % 8.6 % (1.7-12.7); NRBC # 0.02 10*3/uL; Neutrophils % 64.2 % (38.7-73.9); Platelet Count 318 T/CUMM (130-400); Red Blood Count 4.01 MC/CUMM (3.8-5.5); Red Cell Distribution Width 20.4 % (9.3-17.3); White Blood Count 5.7 T/CUMM (4-12)
[2022-06-29 06:13] LABS: Anisocytosis 2+; Hypochromia 1+; Platelet Estimate Normal
[2022-06-29 06:14] LABS: Polychromasia Slight; Tear Drop Cells Few
[2022-06-29] MEDS: INSULIN LISPRO 100 UNIT/ML SUBCUT SCH (09:23)
[2022-06-29] MEDS: INSULIN NPH/REGULAR 70/30 100 UNIT/ML SUBCUT SCH (09:23)
[2022-06-29] MEDS: DAPAGLIFLOZIN 10 MG TABLET PO SCH (09:24)
[2022-06-29] MEDS: carvediloL 25 MG TABLET PO SCH (09:24)
[2022-06-29] MEDS: FUROSEMIDE 40 MG TABLET PO SCH (09:24)
[2022-06-29] MEDS: PANTOPRAZOLE 40 MG TABLET PO SCH (09:24)
[2022-06-29] MEDS: DOCUSATE SODIUM 100 MG CAPSULE PO SCH (09:24)
[2022-06-29] MEDS: LOSARTAN 50 MG TABLET PO SCH (09:24)
[2022-06-29 10:17] VITALS: BP 168/70
== END 2022-06-29 12:19 | disposition home or self-care (01) ==
LOC: N.EDINP 11:21 → N.ED 11:21 → N.TELES 15:42
PROVIDERS: ADMIT Family Medicine; ATTEND Family Medicine

== ENCOUNTER 2022-10-25 09:09 | Inpatient (IN) ==
[2022-10-25 10:04] LABS: Basophils % 0.3 % (0.0-0.8); Eosinophils # 0.1 10*3/uL (0.0-0.87); Eosinophils % 1.6 % (0.00-10.9); Hematocrit 30.1 VOL% (35.7-47.0); Immature Granulocytes % 0.5 %; Immature Granulocytes Absolute 0.03 #; Lymphocytes # 1.3 10*3/uL (1.4-4.0); Lymphocytes % 20.2 % (21.3-54.2); Mean Corpuscular HGB Conc 26.9 GM/DL (32-36); Mean Corpuscular Volume 77.2 FL (87-102); Mean Platelet Volume 10.9 FL (9.6-12.0); Monocytes # 0.2 10*3/uL (0.11-0.8); Monocytes % 3.6 % (1.7-12.7); NRBC # 0.04 10*3/uL; Neutrophils % 73.8 % (38.7-73.9); Platelet Count 357 T/CUMM (130-400); Red Cell Distribution Width 19.1 % (9.3-17.3); White Blood Count 6.35 T/CUMM (4-12)
[2022-10-25 10:06] LABS: Hemoglobin 8.1 GM/DL (12.0-16.0)
[2022-10-25 10:14] LABS: Albumin 2.3 G/DL (3.4-5.0); Bilirubin,Total 0.6 MG/DL (0.20-1.00); Calcium 8.4 MG/DL (8.5-10.1); Osmolality,Calculated 283.4 MOS/KG (273-304); Potassium 4.2 MMOL/L (3.5-5.1)
[2022-10-25 10:24] LABS: Hypochromia 2+
[2022-10-25 10:25] LABS: Microcytosis 1+; Target Cells Slight; Tear Drop Cells Slight; Thyroid Stimulating Hormone 1.84 uIU/ml (0.358-3.74)
[2022-10-25 10:26] LABS: Ovalocytes Slight; Platelet Estimate Normal
[2022-10-25] MEDS ORDERED: FUROSEMIDE 40 MG/4 ML VIAL IV STA (11:33)
[2022-10-25] MEDS ORDERED: hydrALAZINE 20 MG/1 ML VIAL IV STA (11:35)
[2022-10-25] MEDS ORDERED: PIPERACILLIN/TAZOBACTAM 3,375 MG in SODIUM CHLORIDE 0.9% 100 ML IV STA (11:35)
[2022-10-25 12:01] LABS: Bacteria,Urine Occasional /HPF (Few); Hyaline Casts,Urine 6 /LPF (0-3); Mucus,Urine Occasional /LPF (Occasional); RBC,Urine 7 /HPF (0-4); Squamous Epithelial Cell,Urine Occasional /HPF (0-10); Trichomonas,Urine Occasional /HPF (<1)
[2022-10-25 12:03] LABS: Bilirubin,Urine Negative (Negative); Glucose,Urine (UA) Negative (Negative); Ketones,Urine Negative (Negative); Nitrite,Urine Negative (Negative); Protein,Urine 100 mg/dL (Negative); Urine Appearance Slightly Hazy (Clear); Urine Color Yellow (Yellow); Urine pH 5.5 (4.5-8.0)
[2022-10-25 12:04] LABS: Blood, Urine Small mg/dL (Negative); Urine Urobilinogen 0.2 eU/dL (<2.0)
[2022-10-25] MEDS ORDERED: ACETAMINOPHEN 325 MG TABLET PO PRN ×2 (12:38→19:59)
[2022-10-25] MEDS ORDERED: GLUCAGON 1 MG VIAL IM PRN (12:38)
[2022-10-25] MEDS ORDERED: DEXTROSE 10% 250 ML BAG IV PRN (12:44)
[2022-10-25] MEDS: INSULIN REGULAR 100 UNIT/ML SUBCUT SCH ×2 (16:39→21:00)
[2022-10-25] MEDS ORDERED: cloNIDine 0.1 MG TABLET PO STA (17:46)
[2022-10-25] MEDS ORDERED: DICYCLOMINE 10 MG CAPSULE PO PRN (20:06)
[2022-10-25] MEDS: MAGNESIUM CHLORIDE 64 MG TABLET PO SCH (21:15)
[2022-10-25] MEDS: cloNIDine 0.1 MG TABLET PO SCH (21:16)
[2022-10-25] MEDS: carvediloL 25 MG TABLET PO SCH (21:26)
[2022-10-25] MEDS: PIPERACILLIN/TAZOBACTAM 3,375 MG in SODIUM CHLORIDE 0.9% 100 ML IV SCH (21:26)
[2022-10-25 23:02] LABS: Basophils % 0.7 % (0.0-0.8); Eosinophils # 0.1 10*3/uL (0.0-0.87); Eosinophils % 1.5 % (0.00-10.9); Hematocrit 27.2 VOL% (35.7-47.0); Hemoglobin 7.6 GM/DL (12.0-16.0); Immature Granulocytes % 0.2 %; Immature Granulocytes Absolute 0.01 #; Lymphocytes # 1.5 10*3/uL (1.4-4.0); Lymphocytes % 33.1 % (21.3-54.2); Mean Corpuscular HGB Conc 27.9 GM/DL (32-36); Mean Corpuscular Volume 75.3 FL (87-102); Mean Platelet Volume 10.9 FL (9.6-12.0); Monocytes # 0.3 10*3/uL (0.11-0.8); NRBC # 0.04 10*3/uL; Neutrophils % 57.5 % (38.7-73.9); Platelet Count 342 T/CUMM (130-400); Red Blood Count 3.61 MC/CUMM (3.8-5.5); Red Cell Distribution Width 19.1 % (9.3-17.3); White Blood Count 4.59 T/CUMM (4-12)
[2022-10-26] MEDS: DOCUSATE SODIUM 100 MG CAPSULE PO SCH ×3 (01:06→21:13)
[2022-10-26] MEDS: PIPERACILLIN/TAZOBACTAM 3,375 MG in SODIUM CHLORIDE 0.9% 100 ML IV SCH ×2 (05:07→13:58)
[2022-10-26 05:11] LABS: Albumin 1.8 G/DL (3.4-5.0); Bilirubin,Total 0.7 MG/DL (0.20-1.00); Calcium 8.1 MG/DL (8.5-10.1); Osmolality,Calculated 291.3 MOS/KG (273-304); Potassium 3.5 MMOL/L (3.5-5.1); Total Protein 7.4 G/DL (6.4-8.2)
[2022-10-26] MEDS ORDERED: MAGNESIUM SULF RIDER 1 GM/100 ML PREMIX IV ONE (10:00)
[2022-10-26] MEDS: cloNIDine 0.1 MG TABLET PO SCH ×2 (10:46→21:13)
[2022-10-26] MEDS: PANTOPRAZOLE 40 MG TABLET PO SCH (10:47)
[2022-10-26] MEDS: ENOXAPARIN 40 MG/0.4 ML SYRINGE SUBCUT SCH (10:47)
[2022-10-26] MEDS: FUROSEMIDE 40 MG TABLET PO SCH ×2 (10:47→16:41)
[2022-10-26] MEDS: carvediloL 25 MG TABLET PO SCH ×2 (10:47→21:13)
[2022-10-26] MEDS: MAGNESIUM CHLORIDE 64 MG TABLET PO SCH ×2 (10:47→21:12)
[2022-10-26] MEDS: INSULIN NPH/REG 70/30 100 UNIT/ML SUBCUT SCH (12:20)
[2022-10-26] MEDS: INSULIN REGULAR 100 UNIT/ML SUBCUT SCH ×4 (12:21→20:58)
[2022-10-26] MEDS: LOSARTAN 50 MG TABLET PO SCH (16:36)
[2022-10-27] MEDS: PIPERACILLIN/TAZOBACTAM 3,375 MG in SODIUM CHLORIDE 0.9% 100 ML IV SCH ×2 (00:16→08:00)
[2022-10-27] MEDS: ONDANSETRON 4 MG/2 ML VIAL IV PRN ×2 (07:54→15:01)
[2022-10-27] MEDS: INSULIN REGULAR 100 UNIT/ML SUBCUT SCH ×4 (07:56→21:27)
[2022-10-27] MEDS: carvediloL 25 MG TABLET PO SCH ×2 (08:00→21:26)
[2022-10-27] MEDS: ENOXAPARIN 40 MG/0.4 ML SYRINGE SUBCUT SCH (08:00)
[2022-10-27] MEDS: LOSARTAN 50 MG TABLET PO SCH (08:00)
[2022-10-27] MEDS: cloNIDine 0.1 MG TABLET PO SCH (08:00)
[2022-10-27] MEDS: DOCUSATE SODIUM 100 MG CAPSULE PO SCH ×2 (08:00→21:26)
[2022-10-27] MEDS: FUROSEMIDE 40 MG TABLET PO SCH ×2 (08:00→15:01)
[2022-10-27] MEDS: MAGNESIUM CHLORIDE 64 MG TABLET PO SCH ×2 (08:00→21:26)
[2022-10-27] MEDS: PANTOPRAZOLE 40 MG TABLET PO SCH (08:01)
[2022-10-27] MEDS: INSULIN NPH/REG 70/30 100 UNIT/ML SUBCUT SCH (08:58)
[2022-10-27 09:00] LABS: Osmolality,Calculated 289.4 MOS/KG (273-304); Potassium 4.4 MMOL/L (3.5-5.1)
[2022-10-27] MEDS ORDERED: LOSARTAN 50 MG TABLET PO SCH (09:00)
[2022-10-27] MEDS ORDERED: LOSARTAN 50 MG TABLET PO ONE (09:02)
[2022-10-27 10:42] LABS: Basophils % 0.5 % (0.0-0.8); Eosinophils # 0.1 10*3/uL (0.0-0.87); Eosinophils % 1.9 % (0.00-10.9); Hematocrit 25.1 VOL% (35.7-47.0); Immature Granulocytes % 0.9 %; Immature Granulocytes Absolute 0.04 #; Lymphocytes # 1.1 10*3/uL (1.4-4.0); Lymphocytes % 25.8 % (21.3-54.2); Mean Corpuscular HGB Conc 27.9 GM/DL (32-36); Mean Corpuscular Volume 74.9 FL (87-102); Mean Platelet Volume 10.4 FL (9.6-12.0); Monocytes # 0.3 10*3/uL (0.11-0.8); Monocytes % 7.6 % (1.7-12.7); NRBC # 0.02 10*3/uL; Neutrophils % 63.3 % (38.7-73.9); Platelet Count 288 T/CUMM (130-400); Red Blood Count 3.35 MC/CUMM (3.8-5.5); Red Cell Distribution Width 18.9 % (9.3-17.3); White Blood Count 4.22 T/CUMM (4-12)
[2022-10-27] MEDS ORDERED: SODIUM CHLORIDE 0.9% 1,000 ML IV PRN (11:03)
[2022-10-27 11:56] LABS: Anisocytosis 1+; Hypochromia 1+; Platelet Estimate Normal
[2022-10-27 11:57] LABS: Burr Cells Few
[2022-10-27] MEDS ORDERED: hydrALAZINE 20 MG/1 ML VIAL IV PRN (13:39)
[2022-10-27] MEDS: amLODIPine 10 MG TABLET PO SCH (13:52)
[2022-10-27] MEDS ORDERED: cloNIDine 0.1 MG TABLET PO ONE (16:07)
[2022-10-27] MEDS: LINEZOLID 600 MG TABLET PO SCH (16:26)
[2022-10-27] MEDS: hydrOXYzine HCL 25 MG TABLET PO PRN (21:26)
[2022-10-28 04:28] LABS: Basophils % 0.5 % (0.0-0.8); Eosinophils # 0.2 10*3/uL (0.0-0.87); Eosinophils % 5.3 % (0.00-10.9); Hematocrit 28.3 VOL% (35.7-47.0); Hemoglobin 8.1 GM/DL (12.0-16.0); Immature Granulocytes % 0.2 %; Immature Granulocytes Absolute 0.01 #; Lymphocytes # 1.5 10*3/uL (1.4-4.0); Lymphocytes % 34.1 % (21.3-54.2); Mean Corpuscular HGB Conc 28.6 GM/DL (32-36); Mean Corpuscular Volume 77.3 FL (87-102); Mean Platelet Volume 10.4 FL (9.6-12.0); Monocytes # 0.4 10*3/uL (0.11-0.8); Monocytes % 9.2 % (1.7-12.7); NRBC # 0.02 10*3/uL; Neutrophils % 50.7 % (38.7-73.9); Platelet Count 299 T/CUMM (130-400); Red Blood Count 3.66 MC/CUMM (3.8-5.5); Red Cell Distribution Width 19.2 % (9.3-17.3); White Blood Count 4.37 T/CUMM (4-12)
[2022-10-28 04:53] LABS: Calcium 8.3 MG/DL (8.5-10.1); Osmolality,Calculated 285.4 MOS/KG (273-304); Potassium 3.5 MMOL/L (3.5-5.1)
[2022-10-28 04:57] LABS: Albumin 1.9 G/DL (3.4-5.0); Bilirubin,Direct 0.24 MG/DL (0.0-0.20); Bilirubin,Indirect 0.5 MG/DL (0.0-1.0); Bilirubin,Total 0.7 MG/DL (0.20-1.00); Total Protein 7.2 G/DL (6.4-8.2)
[2022-10-28] MEDS: hydrOXYzine HCL 25 MG TABLET PO PRN ×2 (05:04→21:48)
[2022-10-28] MEDS: INSULIN REGULAR 100 UNIT/ML SUBCUT SCH ×4 (07:30→21:48)
[2022-10-28] MEDS ORDERED: MAGNESIUM SULF RIDER 2 GM/50 ML PREMIX IV PRN (08:34)
[2022-10-28] MEDS ORDERED: MAGNESIUM SULF RIDER 4 GM/100 ML PREMIX IV PRN (08:34)
[2022-10-28] MEDS ORDERED: POTASSIUM CHLORIDE RIDER 10 MEQ/100 ML PREMIX IV PRN (08:34)
[2022-10-28] MEDS: INSULIN NPH/REG 70/30 100 UNIT/ML SUBCUT SCH (09:32)
[2022-10-28] MEDS: LOSARTAN 50 MG TABLET PO SCH (09:33)
[2022-10-28] MEDS: PANTOPRAZOLE 40 MG TABLET PO SCH (09:33)
[2022-10-28] MEDS: LINEZOLID 600 MG TABLET PO SCH ×2 (09:33→16:06)
[2022-10-28] MEDS: DOCUSATE SODIUM 100 MG CAPSULE PO SCH ×2 (09:33→21:48)
[2022-10-28] MEDS: carvediloL 25 MG TABLET PO SCH ×2 (09:33→21:48)
[2022-10-28] MEDS: amLODIPine 10 MG TABLET PO SCH (09:33)
[2022-10-28] MEDS: MAGNESIUM CHLORIDE 64 MG TABLET PO SCH ×2 (09:33→21:47)
[2022-10-28] MEDS: FUROSEMIDE 40 MG TABLET PO SCH ×2 (09:33→16:06)
[2022-10-28] MEDS: ENOXAPARIN 40 MG/0.4 ML SYRINGE SUBCUT SCH (09:34)
[2022-10-28] MEDS: minoxidiL 2.5 MG TABLET PO SCH (12:09)
[2022-10-28] MEDS: ALBUMIN 5% 25 GM/500 ML VIAL IV SCH ×2 (15:00→23:35)
[2022-10-28] MEDS ORDERED: POTASSIUM CHLORIDE 20 MEQ TABLET PO PRN (16:03)
[2022-10-29 05:00] LABS: Calcium 8.2 MG/DL (8.5-10.1); Osmolality,Calculated 282.5 MOS/KG (273-304); Potassium 3.4 MMOL/L (3.5-5.1)
[2022-10-29] MEDS: ALBUMIN 5% 25 GM/500 ML VIAL IV SCH (06:00)
[2022-10-29 09:02] LABS: Basophils % 0.5 % (0.0-0.8); Eosinophils # 0.2 10*3/uL (0.0-0.87); Eosinophils % 5.6 % (0.00-10.9); Hematocrit 30.1 VOL% (35.7-47.0); Immature Granulocytes % 0.2 %; Immature Granulocytes Absolute 0.01 #; Lymphocytes # 1.4 10*3/uL (1.4-4.0); Lymphocytes % 31.9 % (21.3-54.2); Mean Corpuscular HGB Conc 28.6 GM/DL (32-36); Mean Corpuscular Volume 77.4 FL (87-102); Mean Platelet Volume 10.4 FL (9.6-12.0); Monocytes # 0.5 10*3/uL (0.11-0.8); Monocytes % 10.7 % (1.7-12.7); NRBC # 0.03 10*3/uL; Neutrophils % 51.1 % (38.7-73.9); Platelet Count 271 T/CUMM (130-400); Red Blood Count 3.89 MC/CUMM (3.8-5.5); Red Cell Distribution Width 19.7 % (9.3-17.3)
[2022-10-29 09:03] LABS: Hemoglobin 8.6 GM/DL (12.0-16.0)
[2022-10-29] MEDS: minoxidiL 2.5 MG TABLET PO SCH (09:17)
[2022-10-29] MEDS: carvediloL 25 MG TABLET PO SCH (09:18)
[2022-10-29] MEDS: MAGNESIUM CHLORIDE 64 MG TABLET PO SCH (09:18)
[2022-10-29] MEDS: LOSARTAN 50 MG TABLET PO SCH (09:18)
[2022-10-29] MEDS: ENOXAPARIN 40 MG/0.4 ML SYRINGE SUBCUT SCH (09:18)
[2022-10-29] MEDS: PANTOPRAZOLE 40 MG TABLET PO SCH (09:18)
[2022-10-29] MEDS: FUROSEMIDE 40 MG TABLET PO SCH (09:18)
[2022-10-29] MEDS: LINEZOLID 600 MG TABLET PO SCH (09:18)
[2022-10-29] MEDS: INSULIN NPH/REG 70/30 100 UNIT/ML SUBCUT SCH (09:19)
[2022-10-29] MEDS: INSULIN REGULAR 100 UNIT/ML SUBCUT SCH ×2 (09:19→12:26)
[2022-10-29 10:04] LABS: Hypochromia 1+; Microcytosis 1+; Ovalocytes Slight; Spherocytes Slight
[2022-10-29 10:05] LABS: Platelet Estimate Normal; Polychromasia Slight
[2022-10-29] MEDS: DOCUSATE SODIUM 100 MG CAPSULE PO SCH (10:10)
[2022-10-29 13:41] VITALS: BP 170/88
== END 2022-10-29 14:49 | disposition home or self-care (01) | DRG 305 ==
LOC: N.ED 09:09 → N.EDINP 11:50 → N.TELEN 19:19
PROVIDERS: ADMIT Family Medicine; ATTEND Family Medicine